=== PATIENT | male | born 1930 | race Caucasian/White ===

== ENCOUNTER 2017-08-20 15:03 | Observation (INO) ==
[2017-08-20] MEDS ORDERED: Aspirin 81 MG TAB.CHEW PO ONE (15:14)
--- NOTE | 2017-08-20 15:24 | Emergency Department Note ---
Disposition Clinical Impression: ACS (acute coronary syndrome) Disposition: Still a Patient [facility] Care Provider[facility] - General Adult HPI - General Chief complaint: ED Chest Pain Stated complaint: CP Time Seen by Provider: 08/20/17 15:11 Source: patient Limitations: no limitations - History of Present Illness Pain Scale: 0 - Related Data Allergies Allergy/AdvReac Type Severity Reaction Status Date / Time tape AdvReac skin Uncoded 01/11/15 09:44 breakdown Past Medical History - Past Medical History Medical history: Reports: CHF, diabetes, GERD, hyperlipidemia, hypertension, kidney stones, myocardial infarction Surgical history: Reports: cholecystectomy, coronary bypass (CABG), pacemaker/ AICD Psychiatric history: Reports: depression - Social History Smoking Status: Former smoker Smokeless Tobacco Status: No Alcohol use: Reports: none Drug use: Reports: none Physical Exam - General Limitations: no limitations General appearance: alert, in no apparent distress Course - Reevaluation(s) Reevaluation #1: Attestation note I examined this patient and my medical decision-making was reviewed with the emergency medicine resident. I agree with the documented findings, disposition and treatment plan as described except to the extent set forth below. Patient seen with PGY-[address] BOWDEN, Please see a copy of his note for details of the H&P, ED evaluation, management and disposition. I have independently evaluated the patient and confirmed appropriate portions of the history and physical exam. Briefly: 87-year-old male history of SD with one stent coronary artery disease hypercholesterolemia is at least 5 points on the heart score. Chest pain at rashes which causes diaphoresis and some shortness of breath but without radiation. Token 81 mg aspirin at home to give him 3 more 81 mg aspirins here. EKG shows paced rhythm no acute ischemic changes noted when compared to old EKG. Patient getting screening labs including troponin and portable chest x- ray with admission anticipated. Disposition pending Time: 15:23 Vital Signs Temperature 97.0 F L 08/20/17 15:14 Pulse Rate 60 08/20/17 15:14 Respiratory Rate 18 08/20/17 15:14 Blood Pressure 171/72 08/20/17 15:14 O2 Sat by Pulse Oximetry 98 08/20/17 15:14 Temperature 97.0 F L 08/20/17 15:14 Pulse Rate 60 08/20/17 15:14 Respiratory Rate 18 08/20/17 15:14 Blood Pressure 171/72 08/20/17 15:14 O2 Sat by Pulse Oximetry 98 08/20/17 15:14 Oxygen Delivery Oxygen Delivery Room Air
--- NOTE | 2017-08-20 16:02 | Emergency Department Note ---
Disposition Clinical Impression: ACS (acute coronary syndrome), Chest pain Disposition: Admitted As Inpatient Condition: Fair [facility]errals: [facility] [Primary Care Provider[facility] - Forms: ED Satisfaction Letter Time of Disposition: 17:15 Chest Pain HPI - General Chief Complaint: ED Chest Pain Stated Complaint: CP Time Seen by Provider: 08/20/17 15:11 Source: patient Limitations: no limitations - History of Present Illness Pt complaint: chest pain Onset (ago): minute(s) Duration: now resolved Onset: during rest Pain Location: substernal Severity: now resolved Severity scale (1-10): 0 Quality: tightness, dull, other (prior FL was asymptomatic, not ripping ) Pain Radiation: other (L shoulder, not to L arm. ) Improves with: other (Could not fiind nitroglycerin at home. Initially stated improves with leaning forward, on second time was unsure. Was not sure if worsening on movement or relief to rest when asked ) Worsens with: other (see above ) Associated symptoms: Reports: nausea, vomiting, diaphoresis Treatments prior to arrival chest pain: aspirin (81 early AM ) - Related Data Home Medications Medication Instructions Recorded Confirmed Amlodipine Besylate 10 mg PO DAILY 08/20/17 08/20/17 Aspirin [Lo-Dose Aspirin EC] 81 mg PO DAILY 08/20/17 08/20/17 Atenolol [Tenormin] 50 mg PO DAILY 08/20/17 08/20/17 Atorvastatin Calcium [Lipitor] 80 mg PO HS 08/20/17 08/20/17 Calcitriol [Rocaltrol] 0.25 mcg PO DAILY 08/20/17 08/20/17 Cetirizine HCl [All Day Allergy] 10 mg PO DAILY 08/20/17 08/20/17 Clopidogrel [Plavix] 75 mg PO DAILY 08/20/17 08/20/17 Febuxostat [Uloric] 40 mg PO DAILY 08/20/17 08/20/17 Furosemide [Lasix] 20 mg PO DAILY PRN 08/20/17 08/20/17 Gabapentin [Neurontin] 300 mg PO QAM 08/20/17 08/20/17 Gabapentin [Neurontin] 600 mg PO HS 08/20/17 08/20/17 Ipratropium [place] 1 spr NS BID 08/20/17 08/20/17 Levothyroxine [Synthroid] 50 mcg PO 0630 08/20/17 08/20/17 Mirabegron [Myrbetriq] 50 mg PO DAILY 08/20/17 08/20/17 Multivitamin [Multivitamins] 1 cap PO DAILY 08/20/17 08/20/17 [place]-3/Dha/Epa/Fish Oil [Fish Oil 1 cap PO DAILY 08/20/17 08/20/17 500 mg Softgel] Ranitidine HCl [Acid Power Operator] 150 mg PO BID 08/20/17 08/20/17 hydroCHLOROthiazide 25 mg PO DAILY 08/20/17 08/20/17 [Hydrochlorothiazide] Allergies Allergy/AdvReac Type Severity Reaction Status Date / Time tape AdvReac skin Uncoded 08/20/17 16:42 breakdown Eyes: Reports: other (blurry vision, now resolved ) ENT ED: Reports: hearing loss (chronic ) Cardiovascular: Reports: as per HPI Respiratory: Reports: as per HPI Gastrointestinal: Reports: as per HPI Neurological: Reports: headache Psychiatric: Denies: suicidal thoughts Chest Pain PMH - Past Medical History Medical history: Reports: CHF, diabetes, GERD, hyperlipidemia, hypertension, kidney stones, myocardial infarction Surgical history: Reports: cholecystectomy, coronary bypass (CABG), pacemaker/ AICD Psychiatric history: Reports: depression - Social History Smoking Status: Former smoker Alcohol use: Reports: none Drug use: Reports: none Physical Exam - General Limitations: no limitations General appearance: alert, in no apparent distress - Head Head exam: atraumatic, normocephalic - Eye Eye exam: Present: PERRL, EOMI. Absent: conjunctival injection - Chest Chest inspection: Present: symmetric chest wall rise. Absent: tenderness - Cardiovascular Cardiovascular exam: Present: normal rhythm, +S1, +S2. Absent: JVD - Abdominal Exam Abdominal exam: Present: soft, tenderness (mild). Absent: distention, guarding , rebound, rigidity - Neurological Exam Neurological exam: Present: alert, oriented X3 - Psychiatric Psychiatric exam: Present: normal affect Course - Reevaluation(s) Reevaluation #1: 16:07 - Blood samples drawn. Reevaluation #2: 16:15 - Status post aspirin. Pt re-assessed, denies chest pain. No requests at the time by patient. Conveyed with family CXR results and remainder plan. Pt amenable to plan. Awaiting lab results. Interval - Pt's family states patient complaining of SOB. Will place patient on NC 2L and continue continuous pulse oximetry. Reevaluation #3: 17:15 . Pt's SOB improved with 2L NC. Denies chest pain at time. Discussed recommendation for admission to family. Patient and family amenable to plan. Additional Reevaluation(s): Approx. 18:00 Family pulled resident MD aside, confided of history of blood in stool. Family unsure of last colonoscopy. Vocera sent at 18:[address] Barrera to convey notification. - Consultations Consultation #1: 17:15 Discussed clinical presentation, exam, imaging, and labs with patient for ACS r/o. Accepted by Hospitalist Bruce. Vital Signs Temperature 97.0 F L 08/20/17 15:14 Pulse Rate 60 08/20/17 15:14 Respiratory Rate 18 08/20/17 15:14 Blood Pressure 171/72 08/20/17 15:14 O2 Sat by Pulse Oximetry 98 08/20/17 15:14 Temperature 97.0 F L 08/20/17 15:14 Pulse Rate 60 08/20/17 17:54 Respiratory Rate 18 08/20/17 17:54 Blood Pressure 157/67 08/20/17 17:54 O2 Sat by Pulse Oximetry 100 08/20/17 17:54 Oxygen Delivery Oxygen Delivery Room Air Chest Pain - MDM Narrative Medical decision making narrative: 87-year-old male with hypertension, coronary artery disease status post CABG, hyperlipidemia presenting with chest pain, substernal, acute in onset, with diaphoresis. Chest pain resolved on arrival in ED. Pt unsure whether worsened on exertion or relieved or rest, and whether or not positional. Due to cardiac history, immediate concern for acute coronary syndrome. Immediate diagnostic studies, including EKG, cardiac biomarkers. Aspirin equivalent 324 mg ONCE. Initial cardiac biomarkers troponin less than 0.03. Suspicion for ACS remains based on history, and patient deemed reasonable candidate for ACS rule out. Hospitalist accepted admission for possible ACS and consideration of stress test. - Medical Records Medical records reviewed: Yes I reviewed the patient's medical records. - Lab Data Lab results reviewed: Yes I reviewed the patient's lab results. Result diagrams: 08/20/17 15:50 08/20/17 15:50 Lab Results 08/20/17 08/20/17 08/20/17 Range/Units 15:50 15:50 15:50 WBC 7.3 (4.3-11.1) K/mcL RBC 3.47 L (4.19-5.50) M/mcL Hgb 10.9 L (12.9-16.9) g/dL Hct 32.7 L (37.5-50.1) % MCV 94.2 (83.0-100.0) fL MCH 31.4 (28.0-33.3) pg MCHC 33.3 (31.6-35.5) g/dL RDW 12.4 (11.5-14.5) % Plt Count 195 (140-400) K/mcL MPV 10.3 (9.4-12.4) fL Immature Gran % 0.3 (0-4) % Seg Neutrophils % 71.4 % Lymphocytes % 18.6 % Monocytes % 8.3 % Eosinophils % 1.0 % Basophils % 0.4 % Neutrophils # 5.2 (1.6-8.9) K/mcL Lymphocytes # 1.4 (0.6-4.6) K/mcL Monocytes # 0.6 (0.0-1.3) K/mcL Eosinophils # 0.1 (0.0-0.6) K/mcL Basophils # 0.0 (0.0-0.2) K/mcL PT 10.6 (9.4-12.1) Seconds INR 1.0 Sodium 145 (136-145) mEq/L Potassium 4.2 (3.5-5.1) mEq/L Chloride 108 H (98-107) mEq/L Carbon Dioxide 29 (23-29) mEq/L BUN 62 H (8-23) mg/dL Creatinine 2.70 H (0.70-1.30) mg/dL Est GFR ( Amer) 27 L (> 60) Est GFR (Non-Af Amer) 23 L (> 60) BUN/Creatinine Ratio 23 (6-26) Glucose 141 H (70-105) mg/dL Calculated Osmolality 320 H (280-300) Calcium 9.2 (8.6-10.3) mg/dL Troponin I < 0.03 (< 0.04) ng/mL - Radiology Data Radiology results reviewed: Yes I reviewed the patient's radiology results. Impressions Chest X-Ray 08/20/17 15:14 IMPRESSION: No acute cardiopulmonary disease D/ / Walter Jaime MD / Walter Jaime MD Interpreting Provider: Walter Jaime MD - EKG Data EKG attestation: Yes I reviewed and interpreted this EKG. EKG results narrative: 15:05:46. Ventricular rate 60. OH interval 225. QRS duration 172. QT/QTC 492 /492. Atrial and ventricular pacemaker. EKG reviewed with attending Brian Regan Heart Score - Score History: Moderately Suspicious EKG: Non Specific repolarisation Disturbance Age: Greater than 65 Risk Factors: Equal/Greater than 3 risk factor or history of atherosclerotic disease Troponin: Less than normal limit (12-16.6% risk of adverse cardiac event. In the HEART Score study, these patients were admitted to the hospital. (11.6% retrospective, 16.6% prospective)) HEART Score Total: 6
[2017-08-20 16:03] LABS: Basophils % 0.4 %; Eosinophils # 0.1 K/mcL (0.0-0.6); Hematocrit 32.7 % (37.5-50.1); Hemoglobin 10.9 g/dL (12.9-16.9); Immature Granulocytes % 0.3 % (0-4); Lymphocytes # 1.4 K/mcL (0.6-4.6); Lymphocytes % 18.6 %; Mean Corpuscular HGB Conc 33.3 g/dL (31.6-35.5); Mean Corpuscular Hemoglobin 31.4 pg (28.0-33.3); Mean Corpuscular Volume 94.2 fL (83.0-100.0); Mean Platelet Volume 10.3 fL (9.4-12.4); Monocytes # 0.6 K/mcL (0.0-1.3); Monocytes % 8.3 %; Neutrophils # 5.2 K/mcL (1.6-8.9); Platelet Count 195 K/mcL (140-400); Red Blood Count 3.47 M/mcL (4.19-5.50); Red Cell Distribution Width 12.4 % (11.5-14.5); Segmented Neutrophils % 71.4 %
[2017-08-20 16:08] LABS: Prothrombin Time 10.6 Seconds (9.4-12.1)
[2017-08-20 16:25] LABS: BUN/Creatinine Ratio 23 (6-26); Blood Urea Nitrogen 62 mg/dL (8-23); Calcium 9.2 mg/dL (8.6-10.3); Carbon Dioxide 29 mEq/L (23-29); Chloride 108 mEq/L (98-107); Glucose 141 mg/dL (70-105); Osmolality,Calculated 320 (280-300); Potassium 4.2 mEq/L (3.5-5.1); Sodium 145 mEq/L (136-145); eGFR For African Americans 27 (> 60); eGFR For Non-African Americans 23 (> 60)
[2017-08-20 16:26] LABS: Troponin I < 0.03 ng/mL (< 0.04)
[2017-08-20] MEDS ORDERED: Naloxone 0.4 MG/ML INJ IVP PRN (21:53)
--- NOTE | 2017-08-20 21:53 | Internal Med History&Physical ---
Date of Encounter: 08/20/17 Time of Encounter: 22:24 Internal Medicine - H&P: HPI Admitted From: Home Plans for Post Hospital Care: Home History of present illness: Mr. Avendaño is a 87 year old male with hypertension, coronary artery disease status post CABG, CK disease stage III is stable and following her estate planning attorney. Baseline creatinine 2.13, hyperlipidemia presenting to ER with complaint of substernal chest pain 6 x 10, epigastric pain acute in onset with diaphoresis restarted in the morning after taking the breakfast. He took a rest but pain did not go away therefore he got concerned and decided to come to emergency room. By the time he is to emergency room his pain already relieved though in emergency room aspirin was given. Initial cardiac biomarkers are negative with no acute finding in EKG. Considering multiple risk factors ER physician called on-call hospitalists for the evaluation of chest pain. A stress tests negative done last year Patient is hard of hearing therefore mostly in formation even by her daughter who is bedside. As per daughter she has noticed blood in the bowel few days of her but patient denies it. Patient complained of epigastric pain that is started today with lot of gas and burping. Patient denies fever, chills, vomiting, shortness of breath, urinary or bowel complaint but has nausea. Past Med Surg Social Fam HX - Past Medical History Medical history: CHF, diabetes, GERD, hyperlipidemia, hypertension, kidney stones, myocardial infarction Psychiatric history: depression - Past Surgical History Surgical History: cholecystectomy, coronary bypass (CABG), pacemaker/AICD - Social History Smoking Status: Former smoker Smokeless Tobacco Status: No Alcohol use: none Drug use: none - Family History Mother Name: dillan Living Status: Age at : 79 Cause of : cardiac dx Hx Family Cardiac Disorders: Yes Father Name: gareth Living Status: Cause of : cardiack dx Hx Family Cardiac Disorders: Yes Sister Name: wilber Living Status: Hx Family Cardiac Disorders: Yes (cardiac dx) Internal Medicine - H&P: Meds Amlodipine Besylate 10 mg PO DAILY 08/20/17 [History] Aspirin [Lo-Dose Aspirin EC] 81 mg PO DAILY 08/20/17 [History] Atenolol [Tenormin] 50 mg PO DAILY 08/20/17 [History] Atorvastatin Calcium [Lipitor] 80 mg PO HS 08/20/17 [History] Calcitriol [Rocaltrol] 0.25 mcg PO DAILY 08/20/17 [History] Cetirizine HCl [All Day Allergy] 10 mg PO DAILY 08/20/17 [History] Clopidogrel [Plavix] 75 mg PO DAILY 08/20/17 [History] Febuxostat [Uloric] 40 mg PO DAILY 08/20/17 [History] Furosemide [Lasix] 20 mg PO DAILY PRN 08/20/17 [History] Gabapentin [Neurontin] 300 mg PO QAM 08/20/17 [History] Gabapentin [Neurontin] 600 mg PO HS 08/20/17 [History] Ipratropium [place] 1 spr NS BID 08/20/17 [History] Levothyroxine [Synthroid] 50 mcg PO 0630 08/20/17 [History] Mirabegron [Myrbetriq] 50 mg PO DAILY 08/20/17 [History] Multivitamin [Multivitamins] 1 cap PO DAILY 08/20/17 [History] [place]-3/Dha/Epa/Fish Oil [Fish Oil 500 mg Softgel] 1 cap PO DAILY 08/20/17 [ History] Ranitidine HCl [Acid Fresh Food Manager] 150 mg PO BID 08/20/17 [History] hydroCHLOROthiazide [Hydrochlorothiazide] 25 mg PO DAILY 08/20/17 [History] 3 Allergy/AdvReac Type Severity Reaction Status Date / Time tape AdvReac skin Uncoded 08/20/17 16:42 breakdown All Systems PM: A 10-system review of systems was performed and is negative for pertinent findings except as documented above in the HPI. - Constitutional Vitals: Temp Pulse Resp BP Pulse Ox 97.5 F L 60 14 177/64 98 08/20/17 20:12 08/20/17 20:12 08/20/17 20:12 08/20/17 20:12 08/20/17 20:12 Exam: General appearance: No acute distress, A&O X 3. Hard of hearing. Daughter at bedside Head exam: Atraumatic Eye exam: EOMI, PERRLA ENT exam: Moist oral mucosa Neck nontender, supple Respiratory exam: Clear to auscultation bilaterally Cardiovascular exam: Regular rate and rhythm, no systolic murmur Abdominal exam: Soft, epigastric tenderness, nondistended, positive bowel sounds Extremities exam: No calf tenderness, no pedal edema Present: Skin-no rash, warm, dry, intact Neurological exam: Alert, awake, oriented 3, CN II-XII intact, no focal deficits. No facial droop. Normal speech. Normal gait. Internal Med - H&P Results - Labs CBC & Chem 7: 08/20/17 15:50 08/20/17 15:50 - Assessment and plan (1) Chest pain Current Visit: Yes Status: Acute Assessment and plan: Atypical chest pain though patient has multiple cardiac risk factor. Also stress tests negative in 2017. Will keep patient in telemetry with serial cardiac monitoring. Will also continue baby aspirin but he stopped Plavix due to concern of GI bleed but it is not active at this time, continue other home cardiac medicine. Will do ischemic cardiac workup and consult broadcast field supervisor if needed. Qualifiers: Qualified Code(s): R07.9 - Chest pain, unspecified (2) Acute epigastric pain Current Visit: Yes Status: Acute Assessment and plan: Started today. Concern of GI bleed as family witness but patient denies. Hemoccult ordered. Patient also has mild anemia. Will keep patient nothing by mouth, gentle hydration as patient had history of CkD as well. PPI IV twice a day, held Plavix but will continue baby aspirin as no active bleeding at this time but will hold if any visible active bleeding or drop in hemoglobin. Will also consult GI specialist if needed. Serial hemoglobin monitoring. Will consider blood transfusion if needed. Discuss with family. (3) MINOR (acute kidney injury) Current Visit: Yes Status: Acute Assessment and plan: Gentle hydration, strict I&O's, avoid nephrotoxic drug. Had Lasix and hydrochlorothiazide. Monitor BMP. (4) Diabetes mellitus Current Visit: Yes Status: Chronic Assessment and plan: Accu-Chek, sliding scale insulin. Qualifiers: Diabetes mellitus type: type 2 Diabetes mellitus terminal computer operator insulin use: without terminal computer operator use Qualified Code(s): E11.9 - Type 2 diabetes mellitus without complications (5) Hypertension Current Visit: Yes Status: Acute Assessment and plan: Monitor closely. Will hold Lasix and hydrochlorothiazide due to acute kidney injury. Hydralazine as needed Qualifiers: Qualified Code(s): I10 - Essential (primary) hypertension - Time Spent With Patient Total time spent is greater than 50% in coordination of care (as documented) at patient's floor/unit and/or counseling patient: Greater than 35 minutes
[2017-08-20] MEDS ORDERED: Dextrose Gel 15 GM/37.5 ML TUBE PO PRN ×2 (22:21)
[2017-08-20] MEDS ORDERED: *HR* Dextrose 50 % in Water (Syg) 50 ML SYRINGE IVP PRN (22:21)
[2017-08-20] MEDS ORDERED: D5% in Water 1,000 ML IVC PRN (22:21)
[2017-08-20 22:35] LABS: Hematocrit 37.1 % (37.5-50.1); Hemoglobin 12.4 g/dL (12.9-16.9)
[2017-08-20] MEDS: 0.9 % Sodium Chloride 1,000 ML IVC SCH (23:40)
[2017-08-20] MEDS: Insulin LISPRO 300 UNITS/3 ML VIAL SQ SCH (23:54)
[2017-08-21] MEDS ORDERED: Acetaminophen 325 MG TABLET PO PRN (02:00)
[2017-08-21] MEDS: Pantoprazole 40 MG VIAL IVP SCH ×2 (06:22→17:25)
[2017-08-21] MEDS: Insulin LISPRO 300 UNITS/3 ML VIAL SQ SCH ×3 (06:24→17:22)
[2017-08-21] MEDS ORDERED: Famotidine 20 MG TABLET PO SCH (07:30)
[2017-08-21] MEDS: Multivit/Ca/Min/Fe/FA 1 TAB TABLET PO SCH (08:17)
[2017-08-21] MEDS: Aspirin Enteric Coated 81 MG Tablet PO SCH (08:17)
[2017-08-21] MEDS: Gabapentin 300 MG CAPSULE PO SCH (08:17)
[2017-08-21] MEDS: amLODIPine 5 MG TABLET PO SCH (08:17)
[2017-08-21] MEDS: IPRATROPIUM BROMIDE NS SCH ×2 (08:18→21:51)
[2017-08-21] MEDS: Febuxostat [Uloric] 40 MG PO SCH (08:18)
[2017-08-21] MEDS: Mirabegron [Myrbetriq] 50 MG PO SCH (08:18)
--- NOTE | 2017-08-21 16:23 | Internal Med Progress Note ---
Date of Encounter: 08/21/17 Time of Encounter: 16:21 - Assessment and plan (1) Chest pain Current Visit: Yes Status: Acute Assessment and plan: Improved. Etiology uncertain. Troponins are negative. Awaiting 2-D echocardiogram. Negative stress test within the past year. Would recommend outpatient follow-up with cardiology if echocardiogram does not show any significant changes from prior echo. Qualifiers: Chest pain type: precordial pain Qualified Code(s): R07.2 - Precordial pain (2) Acute epigastric pain Current Visit: Yes Status: Acute Assessment and plan: Could be related to gastritis or GERD. Stool for occult blood negative. Continue PPI. (3) MINOR (acute kidney injury) Current Visit: Yes Status: Acute Assessment and plan: On chronic kidney disease stage III. Patient this patient and creatinine is between 2.3 and 2.5. We will avoid nephrotoxic agents. Follow renal function. (4) Diabetes mellitus Current Visit: Yes Status: Chronic Assessment and plan: Blood sugars are fairly controlled. Will change insulin regimen to ACHS. Qualifiers: Diabetes mellitus type: type 2 Diabetes mellitus nursing home insulin use: without nursing home use Diabetes mellitus complication status: with kidney complications Diabetes mellitus complication detail: with chronic kidney disease Chronic kidney disease stage: stage 3 (moderate) Qualified Code(s): E11.22 - Type 2 diabetes mellitus with diabetic chronic kidney disease; N18.3 - Chronic kidney disease, stage 3 (moderate); N18.3 - Chronic kidney disease, stage 3 (moderate) (5) Hypertension Current Visit: Yes Status: Chronic Assessment and plan: Blood pressure elevated this afternoon but has been well controlled earlier. Continue atenolol and amlodipine. We will monitor blood pressure and adjust medications accordingly Qualifiers: Hypertension type: essential hypertension Qualified Code(s): I10 - Essential (primary) hypertension - Time Spent With Patient Total time spent is greater than 50% in coordination of care (as documented) at patient's floor/unit and/or counseling patient: - Subjective Interval history: Patient is doing better today. Does report some shortness of breath. Denies any palpitations. Chest pain has resolved. No pedal edema. No abdominal pain nausea or vomiting. He does have occasional epigastric pain. - Constitutional Vitals: Temp Pulse Resp BP Pulse Ox 97.9 F 59 16 155/64 94 08/21/17 15:53 08/21/17 15:53 08/21/17 15:53 08/21/17 15:53 08/21/17 15:53 General appearance: Present: cooperative, mild distress, A&O X 3, pleasant, answers questions appropriately - Neck Neck exam general surgery: Present: supple, trachea midline. Absent: lymphadenopathy - Respiratory Respiratory exam: Present: CTAB. Absent: accessory muscle use, rales, rhonchi, wheezes - Cardiovascular Cardiovascular exam: Present: RRR, +S1, +S2. Absent: diastolic murmur, gallop, rubs, systolic murmur - GI/Abdominal GI/Abdominal exam: Present: normal bowel sounds, soft, no peritoneal signs. Absent: distended, tenderness - Extremities Exam Extremities exam: Present: warm, radial pulses palpable and symmetrical. Absent : calf tenderness, cyanotic, pedal edema - Neurological Exam Neurological exam: Present: CN II-XII intact, oriented X3, no focal deficits. Absent: facial droop, speech deficit Internal Medicine: Result - Labs CBC & Chem 7: 08/20/17 22:24 08/20/17 15:50 Labs: Short CBC 08/20/17 Range/Units 22:24 Hgb 12.4 L D (12.9-16.9) g/dL Hct 37.1 L (37.5-50.1) % Cardiac Enzymes 08/21/17 Range/Units 08:01 Troponin I < 0.03 (< 0.04) ng/mL - ABG Interpretation ABG results: PT/INR, D-dimer PT 10.6 Seconds (9.4-12.1) 08/20/17 15:50 - VTE Documentation of Mechanical Device: Intermittent pneumatic compression device Consult Discharge Plan - Plan [facility]errals: [facility] [Primary Care Provider] -
[2017-08-21] MEDS: Famotidine 20 MG TABLET PO SCH (17:25)
[2017-08-21] MEDS: 0.9 % Sodium Chloride 1,000 ML IVC SCH (19:53)
[2017-08-21] MEDS ORDERED: Insulin LISPRO 300 UNITS/3 ML VIAL SQ SCH (21:00)
[2017-08-22] MEDS: Pantoprazole 40 MG VIAL IVP SCH (05:30)
[2017-08-22 05:51] LABS: Basophils % 0.3 %; Eosinophils # 0.1 K/mcL (0.0-0.6); Eosinophils % 1.7 %; Hematocrit 28.7 % (37.5-50.1); Immature Granulocytes % 0.2 % (0-4); Lymphocytes # 1.3 K/mcL (0.6-4.6); Lymphocytes % 22.1 %; Mean Corpuscular HGB Conc 33.1 g/dL (31.6-35.5); Mean Corpuscular Volume 93.8 fL (83.0-100.0); Mean Platelet Volume 10.6 fL (9.4-12.4); Monocytes # 0.4 K/mcL (0.0-1.3); Monocytes % 7.1 %; Neutrophils # 3.9 K/mcL (1.6-8.9); Platelet Count 151 K/mcL (140-400); Red Blood Count 3.06 M/mcL (4.19-5.50); Red Cell Distribution Width 12.7 % (11.5-14.5); Segmented Neutrophils % 68.6 %
[2017-08-22 05:52] LABS: Hemoglobin 9.5 g/dL (12.9-16.9)
[2017-08-22 06:08] LABS: Potassium 3.8 mEq/L (3.5-5.1)
[2017-08-22 06:23] VITALS: BP 123/68
[2017-08-22] MEDS: Insulin LISPRO 300 UNITS/3 ML VIAL SQ SCH (07:42)
[2017-08-22] MEDS: Famotidine 20 MG TABLET PO SCH (08:31)
[2017-08-22] MEDS: Aspirin Enteric Coated 81 MG Tablet PO SCH (08:32)
[2017-08-22] MEDS: amLODIPine 5 MG TABLET PO SCH (08:32)
[2017-08-22] MEDS: Mirabegron [Myrbetriq] 50 MG PO SCH (08:32)
[2017-08-22] MEDS: Febuxostat [Uloric] 40 MG PO SCH (08:32)
[2017-08-22] MEDS: Multivit/Ca/Min/Fe/FA 1 TAB TABLET PO SCH (08:32)
[2017-08-22] MEDS: IPRATROPIUM BROMIDE NS SCH (08:32)
[2017-08-22] MEDS: Gabapentin 300 MG CAPSULE PO SCH (08:32)
--- NOTE | 2017-08-22 08:44 | Discharge Summary ---
- NOTES TO OUTPATIENT PROVIDER Notes to Outpatient Provider: Patient hospitalized with chest pain. Negative troponins. Echocardiogram shows no changes compared to last echo done in the past year. [place] stress test within the past year. No further workup indicated at this time. Chest pain resolved. Patient also has epigastric pain and would need outpatient GI follow-up for upper GI endoscopy and colonoscopy. Being treated with PPI for now with resolution of symptoms. Date of Encounter: 08/22/17 Time of Encounter: 08:41 - Discharge Diagnosis (1) Chest pain Priority: Primary Status: Acute Qualifiers: Chest pain type: precordial pain Qualified Code(s): R07.2 - Precordial pain (2) Acute epigastric pain Priority: Secondary Status: Acute (3) MINOR (acute kidney injury) Priority: Secondary Status: Resolved (4) Diabetes mellitus Priority: Secondary Status: Chronic Qualifiers: Diabetes mellitus type: type 2 Diabetes mellitus halfway insulin use: without terminal computer operator use Diabetes mellitus complication status: with kidney complications Diabetes mellitus complication detail: with chronic kidney disease Chronic kidney disease stage: stage 3 (moderate) Qualified Code(s): E11.22 - Type 2 diabetes mellitus with diabetic chronic kidney disease; N18.3 - Chronic kidney disease, stage 3 (moderate); N18.3 - Chronic kidney disease, stage 3 (moderate) (5) Hypertension Priority: Secondary Status: Chronic Qualifiers: Hypertension type: essential hypertension Qualified Code(s): I10 - Essential (primary) hypertension (6) Anemia Priority: Secondary Status: Chronic Qualifiers: Anemia type: unspecified type Qualified Code(s): D64.9 - Anemia, unspecified Hospital course: Mr. Avendaño is a 87 year old male patient with history of hypertension and hyperlipidemia, diabetes, chronic kidney disease stage III, coronary artery disease and myocardial infarction status post CABG, pacemaker and AICD placement presented to the hospital with complaints of chest pain. He was evaluated in the ER and an EKG did not show any acute ST segment changes. He was evaluated in the hospital with telemetry and had his troponins checked. They have been negative. Chest pain has now resolved. 2-D echocardiogram was done and it did not show any significant changes compared to echocardiogram done one year back. Patient has already had a stress test within the past year. As his chest pain has now resolved, no further workup is recommended at this time. He will follow up with his pewter caster after discharge. I will also place him on Imdur to help with his symptoms. Patient also had epigastric pain and may have underlying gastritis and he has been placed on Protonix with improvement in his symptoms. He does require follow-up with GI as he also has chronic anemia and has not had colonoscopy in the past. I will put in a referral for GI. Stool was negative for occult blood here. However the patient and family report that he is had occasional episodes of blood in his stools at home. His hemoglobin is 9.5 today. Likely dilutional. He will follow up with GI for further management. He will also continue to take Protonix as outpatient. Discharge discussed with: patient, family, nurse - Time Spent with Patient Total time spent providing and/or coordinating discharge services: Less than 30 minutes (25 min) - Discharge Medications Prescriptions: Nitroglycerin [Nitrostat] 0.4 mg SL Q5MIN PRN #30 tab.subl PRN Reason: Chest Pain Isosorbide MONOnitrate (24 HR) [Imdur] 30 mg PO DAILY #30 tab.er.24h Pantoprazole Sodium 40 mg PO DAILY #30 tablet.dr Faj[place] Medications: Amlodipine Besylate 10 mg PO DAILY 08/20/17 [History] Aspirin [Lo-Dose Aspirin EC] 81 mg PO DAILY 08/20/17 [History] Atenolol [Tenormin] 50 mg PO DAILY 08/20/17 [History] Atorvastatin Calcium [Lipitor] 80 mg PO HS 08/20/17 [History] Calcitriol [Rocaltrol] 0.25 mcg PO DAILY 08/20/17 [History] Cetirizine HCl [All Day Allergy] 10 mg PO DAILY 08/20/17 [History] Clopidogrel [Plavix] 75 mg PO DAILY 08/20/17 [History] Febuxostat [Uloric] 40 mg PO DAILY 08/20/17 [History] Furosemide [Lasix] 20 mg PO DAILY PRN 08/20/17 [History] Gabapentin [Neurontin] 300 mg PO QAM 08/20/17 [History] Gabapentin [Neurontin] 600 mg PO HS 08/20/17 [History] Ipratropium [place] 1 spr NS BID 08/20/17 [History] Levothyroxine [Synthroid] 50 mcg PO 0630 08/20/17 [History] Mirabegron [Myrbetriq] 50 mg PO DAILY 08/20/17 [History] Multivitamin [Multivitamins] 1 cap PO DAILY 08/20/17 [History] [place]-3/Dha/Epa/Fish Oil [Fish Oil 500 mg Softgel] 1 cap PO DAILY 08/20/17 [ History] hydroCHLOROthiazide [Hydrochlorothiazide] 25 mg PO DAILY 08/20/17 [History] Isosorbide MONOnitrate (24 HR) [Imdur] 30 mg PO DAILY #30 tab.er.24h 08/22/17 [ Rx] Nitroglycerin [Nitrostat] 0.4 mg SL Q5MIN PRN #30 tab.subl 08/22/17 [Rx] Pantoprazole Sodium 40 mg PO DAILY #30 tablet.dr 08/22/17 [Rx] Allergies/Adverse Reactions: 3 Allergy/AdvReac Type Severity Reaction Status Date / Time tape AdvReac skin Uncoded 08/20/17 16:42 breakdown Date of admission: 08/20/17 19:13 [facility] care [facility] Discharging clinician: Marlene Ferrer Anticipated date of discharge: 08/22/17 - Constitutional Vitals: Temp Pulse Resp BP Pulse Ox 98.5 F 68 16 123/68 95 08/22/17 06:22 08/22/17 06:22 08/22/17 06:22 08/22/17 06:22 08/22/17 06:22 General appearance: Present: cooperative, A&O X 3, pleasant, no acute distress, answers questions appropriately - Neck Neck exam general surgery: Present: supple, trachea midline. Absent: lymphadenopathy - Respiratory Respiratory exam: Present: CTAB. Absent: accessory muscle use, rales, rhonchi, wheezes - Cardiovascular Cardiovascular exam: Present: RRR, +S1, +S2. Absent: diastolic murmur, gallop, rubs, systolic murmur - GI/Abdominal GI/Abdominal exam: Present: normal bowel sounds, soft, no peritoneal signs. Absent: distended, tenderness - Extremities Exam Extremities exam: Present: warm, radial pulses palpable and symmetrical. Absent : calf tenderness, cyanotic, pedal edema - Neurological Exam Neurological exam: Present: CN II-XII intact, oriented X3, no focal deficits. Absent: facial droop, speech deficit - Skin Skin exam: Present: dry, intact - Patient Status Disposition: Home, Self-Care Condition: Good Functional capacity at discharge: uses cane/walker Overall status at discharge: patient is progressing back to baseline - Discharge Instructions Instructions: Chest Pain (DC), Anemia (GEN) [facility] With: [facility] [Primary Care Provider] - (In 1-2 weeks) Kobi Mcnamara MD [Partnered Physician] - (In 1-2 weeks for outpatient colonoscopy and EGD ) Colt Boykin MD [Partnered Physician] - (In 1-2 weeks.) - Diet and Activity Activity: increase activity as tolerated Diet: diabetic diet, low fat, low cholesterol, low salt diet - VTE Documentation of Mechanical Device: Intermittent pneumatic compression device
--- NOTE | 2017-08-24 05:15 | Electrocardiograph Report ---
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
== END 2017-08-22 10:06 | disposition home or self-care (01) ==
LOC: EMEROO 15:03 → SUATTDRO 19:13 → 3NENU 19:13 → INTOOBSV 19:13 → 3NENU 19:58
PROVIDERS: ADMIT Family Medicine; ATTEND Internal Medicine

== ENCOUNTER 2017-09-28 12:04 | Observation (INO) ==
[2017-09-28 13:46] LABS: Basophils % 0.5 %; Eosinophils # 0.2 K/mcL (0.0-0.6); Hematocrit 33.9 % (37.5-50.1); Hemoglobin 11.4 g/dL (12.9-16.9); Immature Granulocytes % 0.3 % (0-4); Lymphocytes # 1.8 K/mcL (0.6-4.6); Lymphocytes % 23.5 %; Mean Corpuscular HGB Conc 33.6 g/dL (31.6-35.5); Mean Corpuscular Volume 95.2 fL (83.0-100.0); Mean Platelet Volume 10.6 fL (9.4-12.4); Monocytes # 0.5 K/mcL (0.0-1.3); Monocytes % 6.4 %; Platelet Count 184 K/mcL (140-400); Red Blood Count 3.56 M/mcL (4.19-5.50); Red Cell Distribution Width 12.8 % (11.5-14.5); Segmented Neutrophils % 67.3 %
[2017-09-28 14:08] LABS: Albumin 3.7 g/dL (3.5-5.7); Albumin/Globulin Ratio 1.2 (1.1-2.2); Bilirubin,Direct 0.1 mg/dL (0.0-0.2); Bilirubin,Indirect 0.3 mg/dL (0.0-1.2); Bilirubin,Total 0.4 mg/dL (0.3-1.0); Calcium 9.1 mg/dL (8.6-10.3); Globulin 3.1 g/dL (2.4-3.5); Potassium 4.1 mEq/L (3.5-5.1); Total Protein 6.8 g/dL (6.4-8.9)
[2017-09-28] MEDS ORDERED: 0.9 % Sodium Chloride 1,000 ML IVC ONE (15:44)
[2017-09-28] MEDS ORDERED: Ondansetron 4 MG/2 ML VIAL IVP ONE (15:44)
--- NOTE | 2017-09-28 15:44 | Emergency Department Note ---
Disposition Clinical Impression: ARF (acute renal failure), Elevated lipase Disposition: Admitted As Inpatient Condition: Fair Referrals: Avel Linares MD [Primary Care Provider] - Forms: ED Satisfaction Letter Time of Disposition: 15:30 General Adult HPI - General Chief complaint: ED Recheck/Abnormal Lab/Rx Stated complaint: Abnormal Labs Time Seen by Provider: 09/28/17 14:39 Source: patient Mode of arrival: ambulatory Limitations: no limitations Nursing Notes Reviewed: Yes Vital Signs Reviewed: Yes - History of Present Illness HPI Narrative: 87-year-old male presents emergency Department with concerns of persistent nausea and vomiting and abdominal pain. Patient was seen in the emergency department within the past week for the same situation. He was seen by his primary care provider today who noticed that he had acute worsening of his renal function. He is sent to the emergency department for further evaluation. Patient has an elevation of his lipase at 88 which was obtained during testing from the waiting room. Patient is unknown what the patient's baseline lipase is. Pain Scale: 0 - Related Data Home Medications Medication Instructions Recorded Confirmed Amlodipine Besylate 10 mg PO DAILY 08/20/17 09/28/17 Aspirin [Lo-Dose Aspirin EC] 81 mg PO DAILY 08/20/17 09/28/17 Atenolol [Tenormin] 50 mg PO DAILY 08/20/17 09/28/17 Atorvastatin Calcium [Lipitor] 80 mg PO HS 08/20/17 09/28/17 Calcitriol [Rocaltrol] 0.25 mcg PO DAILY 08/20/17 09/28/17 Cetirizine HCl [All Day Allergy] 10 mg PO DAILY 08/20/17 09/28/17 Clopidogrel [Plavix] 75 mg PO DAILY 08/20/17 09/28/17 Febuxostat [Uloric] 40 mg PO DAILY 08/20/17 09/28/17 Furosemide [Lasix] 20 mg PO DAILY PRN 08/20/17 09/28/17 Gabapentin [Neurontin] 300 mg PO QAM 08/20/17 09/28/17 Gabapentin [Neurontin] 600 mg PO HS 08/20/17 09/28/17 Ipratropium [place] 1 spr NS BID 08/20/17 09/28/17 Levothyroxine [Synthroid] 50 mcg PO 0630 08/20/17 09/28/17 Mirabegron [Myrbetriq] 50 mg PO DAILY 08/20/17 09/28/17 Multivitamin [Multivitamins] 1 cap PO DAILY 08/20/17 09/28/17 [place]-3/Dha/Epa/Fish Oil [Fish Oil 1 cap PO DAILY 08/20/17 09/28/17 500 mg Softgel] hydroCHLOROthiazide 25 mg PO DAILY 08/20/17 09/28/17 [Hydrochlorothiazide] Previous Rx's Medication Instructions Recorded Isosorbide MONOnitrate (24 HR) 30 mg PO DAILY #30 tab.er.24h 08/22/17 [Imdur] Nitroglycerin [Nitrostat] 0.4 mg SL Q5MIN PRN #30 tab.subl 08/22/17 Pantoprazole Sodium 40 mg PO DAILY #30 tablet.dr 08/22/17 Ondansetron ODT [Zofran ODT] 4 mg SL Q4HR PRN #14 tab.rapdis 09/25/17 Allergies Allergy/AdvReac Type Severity Reaction Status Date / Time tape AdvReac skin Uncoded 09/28/17 12:08 breakdown All systems ED: reviewed and negative except as stated. Review of Systems: As Per HPI Past Medical History - Past Medical History Attestation: Yes The following information was validated with the patient. Source: patient Medical history: Reports: CHF, diabetes, GERD, hyperlipidemia, hypertension, kidney stones, myocardial infarction Surgical history: Reports: cholecystectomy, coronary bypass (CABG), pacemaker/ AICD Psychiatric history: Reports: depression - Social History Smoking Status: Former smoker Smokeless Tobacco Status: No Alcohol use: Reports: none Drug use: Reports: none Physical Exam General: Alert and in no acute distress Skin: Warm, dry, intact Head: Normocephalic and atraumatic Neck: Supple, trachea midline and no tenderness Cardiovascular: RRR, no murmur, normal perfusion Respiratory: CTAB, no wheezing, cough, or respiratory distress Musculoskeletal: Normal strength, no tenderness, swelling or deformity GI: Soft, nontender, nondistended. Bowel sounds present Neuro: A&O to person, place, time and situation. No focal deficits noted on exam Psychiatric: cooperative and appropriate mood and affect. - General General appearance: alert, in no apparent distress Course Vital Signs Temperature 98.2 F 09/28/17 12:06 Pulse Rate 61 09/28/17 12:06 Respiratory Rate 18 09/28/17 12:06 Blood Pressure 137/64 09/28/17 12:06 O2 Sat by Pulse Oximetry 97 09/28/17 12:06 Temperature 98.2 F 09/28/17 14:44 Pulse Rate 60 09/28/17 16:07 Respiratory Rate 18 09/28/17 14:44 Blood Pressure 152/63 09/28/17 16:07 O2 Sat by Pulse Oximetry 96 09/28/17 16:07 Oxygen Delivery Oxygen Delivery Room Air Medical Decision Making - MDM Narrative Medical decision making narrative: Patient has elevation of his lipase with possible pancreatitis causing his persistent nausea and vomiting. Patient had a CT which did not show significant abnormality within the past few days. Abdomen is soft to palpation and likely does not have acute surgical pathology at this time. Patient will be given IV fluids and he will be admitted to the hospitalist for further care and evaluation. - Medical Records Medical records reviewed: Yes I reviewed the patient's medical records. - Lab Data Lab results reviewed: Yes I reviewed the patient's lab results. Result diagrams: 09/28/17 13:31 09/28/17 13:31 Lab Results 09/28/17 09/28/17 Range/Units 13:31 13:31 WBC 7.5 (4.3-11.1) K/mcL RBC 3.56 L (4.19-5.50) M/mcL Hgb 11.4 L (12.9-16.9) g/dL Hct 33.9 L (37.5-50.1) % MCV 95.2 (83.0-100.0) fL MCH 32.0 (28.0-33.3) pg MCHC 33.6 (31.6-35.5) g/dL RDW 12.8 (11.5-14.5) % Plt Count 184 (140-400) K/mcL MPV 10.6 (9.4-12.4) fL Immature Gran % 0.3 (0-4) % Seg Neutrophils % 67.3 % Lymphocytes % 23.5 % Monocytes % 6.4 % Eosinophils % 2.0 % Basophils % 0.5 % Neutrophils # 5.0 (1.6-8.9) K/mcL Lymphocytes # 1.8 (0.6-4.6) K/mcL Monocytes # 0.5 (0.0-1.3) K/mcL Eosinophils # 0.2 (0.0-0.6) K/mcL Basophils # 0.0 (0.0-0.2) K/mcL Sodium 141 (136-145) mEq/L Potassium 4.1 (3.5-5.1) mEq/L Chloride 105 (98-107) mEq/L Carbon Dioxide 28 (23-29) mEq/L BUN 60 H (8-23) mg/dL Creatinine 3.35 H (0.70-1.30) mg/dL Est GFR ( Amer) 21 L (> 60) Est GFR (Non-Af Amer) 18 L (> 60) BUN/Creatinine Ratio 18 (6-26) Glucose 111 H (70-105) mg/dL Calculated Osmolality 310 H (280-300) Calcium 9.1 (8.6-10.3) mg/dL Total Bilirubin 0.4 (0.3-1.0) mg/dL Direct Bilirubin 0.1 (0.0-0.2) mg/dL Indirect Bilirubin 0.3 (0.0-1.2) mg/dL AST 19 (13-39) Units/L ALT 15 (7-52) Units/L Alkaline Phosphatase 87 (34-104) Units/L Serum Total Protein 6.8 (6.4-8.9) g/dL Albumin 3.7 (3.5-5.7) g/dL Globulin 3.1 (2.4-3.5) g/dL Albumin/Globulin Ratio 1.2 (1.1-2.2) Lipase 88 H (11-82) Units/L - Radiology Data Radiology results reviewed: Yes I reviewed the patient's radiology results. - EKG Data EKG #1 EKG attestation: Yes I reviewed and interpreted this EKG. EKG results narrative: AV paced at rate of 60, without evidence of STEMI.
[2017-09-28] MEDS ORDERED: Naloxone 0.4 MG/ML INJ IVP PRN (16:37)
--- NOTE | 2017-09-28 16:56 | Internal Med History&Physical ---
<Anca Gamboa Douglas - Last Filed: 09/28/17 21:02> Date of Encounter: 09/28/17 Time of Encounter: 16:51 Internal Medicine - H&P: HPI Admitted From: Home Plans for Post Hospital Care: Home History of present illness: Mr. Avendaño is a 87 year old male MINOR, DM, Anemia, HTN, and epigastric pain. The patient was here in the ED on 09/25/[address] of abdomen and pelvis showed no acute disease. The CT did show enlarged heart, aortic and coronary artery calcification and a 12 mm cyst in the right hepatic lobe. The patient also indicated that he was on atb therapy three weeks ago for similar symptoms. He indicated he had diarrhea up until 2 days ago and the nausea and vomiting has persisted for the past 3 days. Today he indicates he has had constipation now for 2 days, he is eating very little due to poor appetite and inability to keep anything down. Lipase elevated at 88. Creatinine is baseline is 2.2 today presents with 3.3 creat, bun is 60. Schedule for abdominal x-ray at this time. Awaiting results. WBC is 7.5. Complaints of generalized abdominal pain with light and deep palpation. Past Med Surg Social Fam HX - Past Medical History Medical history: CHF, diabetes, GERD, hyperlipidemia, hypertension, kidney stones, myocardial infarction Psychiatric history: depression - Past Surgical History Surgical History: cholecystectomy, coronary bypass (CABG), pacemaker/AICD - Social History Smoking Status: Former smoker Smokeless Tobacco Status: No Alcohol use: none Drug use: none - Family History Mother Living Status: Hx Family Cardiac Disorders: Yes Father Living Status: Hx Family Cardiac Disorders: Yes Sister Living Status: Hx Family Cardiac Disorders: Yes (cardiac dx) Internal Medicine - H&P: Meds Amlodipine Besylate 10 mg PO DAILY 08/20/17 [History] Aspirin [Lo-Dose Aspirin EC] 81 mg PO DAILY 08/20/17 [History] Atenolol [Tenormin] 50 mg PO DAILY 08/20/17 [History] Atorvastatin Calcium [Lipitor] 80 mg PO HS 08/20/17 [History] Calcitriol [Rocaltrol] 0.25 mcg PO DAILY 08/20/17 [History] Cetirizine HCl [All Day Allergy] 10 mg PO DAILY 08/20/17 [History] Clopidogrel [Plavix] 75 mg PO DAILY 08/20/17 [History] Febuxostat [Uloric] 40 mg PO DAILY 08/20/17 [History] Furosemide [Lasix] 20 mg PO DAILY PRN 08/20/17 [History] Gabapentin [Neurontin] 300 mg PO QAM 08/20/17 [History] Gabapentin [Neurontin] 600 mg PO HS 08/20/17 [History] Ipratropium [place] 1 spr NS BID 08/20/17 [History] Levothyroxine [Synthroid] 50 mcg PO 0630 08/20/17 [History] Mirabegron [Myrbetriq] 50 mg PO DAILY 08/20/17 [History] Multivitamin [Multivitamins] 1 cap PO DAILY 08/20/17 [History] [place]-3/Dha/Epa/Fish Oil [Fish Oil 500 mg Softgel] 1 cap PO DAILY 08/20/17 [ History] hydroCHLOROthiazide [Hydrochlorothiazide] 25 mg PO DAILY 08/20/17 [History] Isosorbide MONOnitrate (24 HR) [Imdur] 30 mg PO DAILY #30 tab.er.24h 08/22/17 [ Rx] Nitroglycerin [Nitrostat] 0.4 mg SL Q5MIN PRN #30 tab.subl 08/22/17 [Rx] Pantoprazole Sodium 40 mg PO DAILY #30 tablet.dr 08/22/17 [Rx] Ondansetron ODT [Zofran ODT] 4 mg SL Q4HR PRN #14 tab.rapdis 09/25/17 [Rx] 3 Allergy/AdvReac Type Severity Reaction Status Date / Time tape AdvReac skin Uncoded 09/28/17 12:08 breakdown All Systems PM: A 10-system review of systems was performed and is negative for pertinent findings except as documented above in the HPI. - Constitutional Constitutional: no chills, no fever(s), no night sweats - EENT Eyes: no change in vision, no discharge, no pain, no photophobia Ears: no ear discharge, no ear pain, no tinnitus Nose, mouth and throat: no dysphagia, no nasal discharge, no neck pain, no sore throat - Cardiovascular Cardiovascular ROS IM: no chest pain, no diaphoresis, no dyspnea, no lightheadedness, no palpitations, no syncope - Respiratory Respiratory: no cough, no dyspnea, no wheezing, no excessive phlegm production - Gastrointestinal Gastrointestinal: abdominal pain, change in bowel habits, change in stool character, diarrhea, nausea, vomiting, no hematemesis, no hematochezia, no melena - Musculoskeletal Musculoskeletal ROS IM: no numbness, no tingling - Integumentary Integumentary IM: no rash, no unusual bruising - Neurological Neurological ROS: no confusion, no convulsions, no focal weakness, no numbness, no tingling, no tremor(s) - Hematologic/Lymphatic Hematologic/Lymphatic: no easy bruising - Constitutional Vitals: Temp Pulse Resp BP Pulse Ox 98.2 F 60 18 152/63 96 09/28/17 14:44 09/28/17 16:07 09/28/17 14:44 09/28/17 16:07 09/28/17 16:07 General appearance: Present: mild distress, A&O X 3 - Head Head exam: Present: atraumatic, normocephalic - Eye Eye exam: Present: PERRL, conjuntiva pink, sclera anicteric Pupils: Present: PERRL - Neck Neck exam general surgery: Present: supple, trachea midline. Absent: lymphadenopathy - Respiratory Respiratory exam: Present: CTAB. Absent: accessory muscle use, rales, rhonchi, wheezes - Cardiovascular Cardiovascular exam: Present: RRR, +S1, +S2. Absent: diastolic murmur, gallop, rubs, systolic murmur - GI/Abdominal GI/Abdominal exam: Present: hyperactive bowel sounds, soft, tenderness ( Generalized), no peritoneal signs. Absent: distended - Extremities Exam Extremities exam: Present: warm, radial pulses palpable and symmetrical. Absent : calf tenderness, cyanotic, pedal edema - Neurological Exam Neurological exam: Present: CN II-XII intact, oriented X3, no focal deficits. Absent: pronater drift, facial droop, speech deficit - Skin Skin exam: Present: dry, intact Internal Med - H&P Results - Labs CBC & Chem 7: 09/28/17 13:31 09/28/17 13:31 Labs: Short CBC 09/28/17 Range/Units 13:31 WBC 7.5 (4.3-11.1) K/mcL Hgb 11.4 L (12.9-16.9) g/dL Hct 33.9 L (37.5-50.1) % Plt Count 184 (140-400) K/mcL Neutrophils # 5.0 (1.6-8.9) K/mcL BMP 09/28/17 13:31 Sodium 141 Potassium 4.1 Chloride 105 Carbon Dioxide 28 BUN 60 H Creatinine 3.35 H Glucose 111 H Calcium 9.1 Cardiac Enzymes 09/28/17 Range/Units 16:18 Troponin I < 0.03 (< 0.04) ng/mL Liver Function 09/28/17 Range/Units 13:31 Total Bilirubin 0.4 (0.3-1.0) mg/dL Direct Bilirubin 0.1 (0.0-0.2) mg/dL AST 19 (13-39) Units/L ALT 15 (7-52) Units/L Alkaline Phosphatase 87 (34-104) Units/L Albumin 3.7 (3.5-5.7) g/dL - Assessment and plan (1) Abdominal pain Current Visit: Yes Status: Acute Assessment and plan: Abdominal xray NPO cmp and cbc daily Qualifiers: Abdominal location: generalized Qualified Code(s): R10.84 - Generalized abdominal pain (2) Nausea & vomiting Current Visit: No Status: Acute Assessment and plan: Abdominal xray NPO cmp and cbc daily Zofran iv prn IVF's Qualifiers: Vomiting type: unspecified Vomiting Intractability: non-intractable Qualified Code(s): R11.2 - Nausea with vomiting, unspecified (3) MINOR (acute kidney injury) Current Visit: No Status: Resolved Assessment and plan: -IVF'S -Baseline creat is 2.2 -Monitor Daily labs -CBC, CMP in AM - O2 to keep SpO2 higher than 92% - Tylenol 650 mg PO q 4hr PRN pain - Home meds - Heparin 5000 U SQ BID (4) Elevated lipase Current Visit: Yes Status: Acute Assessment and plan: NPO. 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 use Diabetes mellitus complication status: with kidney complications Diabetes mellitus complication detail: with chronic kidney disease Chronic kidney disease stage: stage 3 (moderate) Qualified Code(s): E11.22 - Type 2 diabetes mellitus with diabetic chronic kidney disease; N18.3 - Chronic kidney disease, stage 3 (moderate) - Time Spent With Patient Total time spent is greater than 50% in coordination of care (as documented) at patient's floor/unit and/or counseling patient: 25 - 35 minutes <Natalio Hoffman - Last Filed: 09/29/17 08:26> Date of Encounter: 09/28/17 Internal Medicine - H&P: HPI History of present illness: Mr. Avendaño is a 87 year old male All Systems PM: A 10-system review of systems was performed and is negative for pertinent findings except as documented above in the HPI. - Constitutional Vitals: Temp Pulse Resp BP Pulse Ox 97.9 F 60 14 137/63 92 09/29/17 05:59 09/29/17 05:59 09/29/17 05:59 09/29/17 05:59 09/29/17 05:59 Internal Med - H&P Results - Labs CBC & Chem 7: 09/29/17 05:53 09/29/17 05:53 Labs: Short CBC 09/29/17 Range/Units 05:53 WBC 5.9 (4.3-11.1) K/mcL Hgb 9.8 L D (12.9-16.9) g/dL Hct 28.9 L (37.5-50.1) % Plt Count 167 (140-400) K/mcL Neutrophils # 3.7 (1.6-8.9) K/mcL BMP 09/29/17 05:53 Sodium 144 Potassium 3.9 Chloride 111 H Carbon Dioxide 27 BUN 49 H Creatinine 2.55 H Glucose 86 Calcium 8.2 L Cardiac Enzymes 09/28/17 09/29/17 Range/Units 22:19 05:53 Troponin I < 0.03 < 0.03 (< 0.04) ng/mL Liver Function 09/29/17 Range/Units 05:53 Total Bilirubin 0.4 (0.3-1.0) mg/dL AST 16 (13-39) Units/L ALT 12 (7-52) Units/L Alkaline Phosphatase 72 (34-104) Units/L Albumin 2.9 L (3.5-5.7) g/dL - Attending Attestation I have personally performed a face to face evaluation on this patient. I have reviewed and agree with the care plan provided by PRICE LISTER Anca Gamboa. History and Exam by me shows: Mr. Avendaño is a 87 year old male MINOR, DM, Anemia, HTN pt who has been having intermittent abdomina pain, with nausea / vomiting form last 3 weeks which is progressively worsening form last 2-3 days. Pt was here in the ED on 09/25/[address] of abdomen and pelvis showed no acute disease. Today he indicates he has had constipation now for 2 days, he is eating very little due to poor appetite and inability to keep anything down. Lipase elevated at 88. Creatinine is baseline is 2.2 today presents with 3.3 Cr. Pt denied any CP / SOB. Gen: A, A, O x 3 CHest: Diminishes BS b/l Heart: S1S2+ Abd: Soft, mildly distended, tympanic notes + a/p 1. Acute intractable N/V Concerning for partial SBO vs Ileus vs Fecal impaction will get X ray of Abd cont symptomatic and supportive care 2. MINOR with CKD-3 IV fluids - Time Spent With Patient Total time spent is greater than 50% in coordination of care (as documented) at patient's floor/unit and/or counseling patient:
[2017-09-28] MEDS ORDERED: Ondansetron 4 MG/2 ML VIAL IVP PRN (17:20)
[2017-09-28] MEDS ORDERED: Acetaminophen 325 MG TABLET PO PRN (17:31)
[2017-09-28] MEDS ORDERED: Furosemide 20 MG TABLET PO PRN (17:33)
[2017-09-28] MEDS: 0.9 % Sodium Chloride 1,000 ML IVC SCH (19:52)
[2017-09-28] MEDS: (Ipratropium Bromide [Ipratropium Bromide] 1 SPR) NS SCH (19:58)
[2017-09-28] MEDS ORDERED: Gabapentin 300 MG CAPSULE PO SCH (21:00)
[2017-09-29] MEDS: 0.9 % Sodium Chloride 1,000 ML IVC SCH ×2 (03:25→19:29)
[2017-09-29 06:24] LABS: Basophils % 0.3 %; Eosinophils # 0.2 K/mcL (0.0-0.6); Hematocrit 28.9 % (37.5-50.1); Immature Granulocytes % 0.5 % (0-4); Lymphocytes # 1.6 K/mcL (0.6-4.6); Lymphocytes % 26.4 %; Mean Corpuscular HGB Conc 33.9 g/dL (31.6-35.5); Mean Corpuscular Hemoglobin 32.3 pg (28.0-33.3); Mean Corpuscular Volume 95.4 fL (83.0-100.0); Mean Platelet Volume 10.5 fL (9.4-12.4); Monocytes # 0.5 K/mcL (0.0-1.3); Monocytes % 7.7 %; Neutrophils # 3.7 K/mcL (1.6-8.9); Platelet Count 167 K/mcL (140-400); Red Blood Count 3.03 M/mcL (4.19-5.50); Red Cell Distribution Width 12.9 % (11.5-14.5); Segmented Neutrophils % 62.1 %
[2017-09-29 06:25] LABS: Hemoglobin 9.8 g/dL (12.9-16.9)
[2017-09-29 06:43] LABS: Albumin 2.9 g/dL (3.5-5.7); Albumin/Globulin Ratio 1.1 (1.1-2.2); Bilirubin,Total 0.4 mg/dL (0.3-1.0); Calcium 8.2 mg/dL (8.6-10.3); Globulin 2.7 g/dL (2.4-3.5); Potassium 3.9 mEq/L (3.5-5.1); Total Protein 5.6 g/dL (6.4-8.9)
[2017-09-29] MEDS ORDERED: DHA PO SCH (09:00)
[2017-09-29] MEDS ORDERED: hydroCHLOROthiazide 25 MG TABLET PO SCH (09:00)
[2017-09-29] MEDS ORDERED: EPA PO SCH (09:00)
[2017-09-29] MEDS ORDERED: FISH OIL PO SCH (09:00)
[2017-09-29] MEDS ORDERED: OMEGA PO SCH (09:00)
[2017-09-29] MEDS ORDERED: (Febuxostat [Uloric] 40 MG) PO SCH (09:00)
[2017-09-29] MEDS: Isosorbide MONOnitrate (24 HR) 30 MG TAB.ER.24H PO SCH (09:04)
[2017-09-29] MEDS: amLODIPine 5 MG TABLET PO SCH (09:04)
[2017-09-29] MEDS: (Ipratropium Bromide [Ipratropium Bromide] 1 SPR) NS SCH (09:05)
[2017-09-29] MEDS: Aspirin Enteric Coated 81 MG Tablet PO SCH (09:05)
[2017-09-29] MEDS: Multivit/Ca/Min/Fe/FA 1 TAB TABLET PO SCH (09:05)
[2017-09-29] MEDS: Gabapentin 300 MG CAPSULE PO SCH (09:05)
[2017-09-29] MEDS: Loratadine 10 MG TABLET PO SCH (09:05)
--- NOTE | 2017-09-29 11:06 | Internal Med Progress Note ---
Date of Encounter: 09/29/17 Time of Encounter: 10:00 - Assessment and plan (1) Acute kidney injury superimposed on chronic kidney disease Current Visit: Yes Status: Acute Assessment and plan: Multifactorial renal failure. Acute kidney failure on chronic kidney disease stage III. Stop hydrochlorothiazide, stop Lasix. Suspect diarrhea contributed to this. Continue gentle IV fluids, encourage oral intake. Avoid all unnecessary nephrotoxins, monitor. (2) Abdominal pain Current Visit: Yes Status: Acute Assessment and plan: On September [address] abdomen and pelvis without contrast which was essentially a negative study. Abdominal x-ray on admission on September 28 showed no acute process. She does have a mildly elevated lipase and cannot exclude a mild pancreatitis. Symptoms are improved. Continue IV fluids. We will start a clear diet and monitor. I discussed in detail with the patient and the family at the bedside. If he does not improve with conservative management, would consider referral for EGD looking for gastritis or other process to explain his abdominal pain. I would not want to pursue this study acutely in the setting of acute renal failure and pancreatitis unless absolutely necessary. This may also be a viral gastroenteritis. Duration of symptoms and the lack of blood in his stool argue against an ischemic colitis-type abdominal pain. (3) Diarrhea Current Visit: No Status: Acute Assessment and plan: Resolving. Monitor Qualifiers: Diarrhea type: unspecified type Qualified Code(s): R19.7 - Diarrhea, unspecified (4) Hypertension Current Visit: No Status: Chronic Assessment and plan: Stable, monitor Chlorothiazide is stopped. Lasix is on hold. He continues on atenolol 50 mg by mouth daily and Norvasc 10 mg by mouth daily, as well as Imdur 30 mg by mouth daily. Qualifiers: Hypertension type: essential hypertension Qualified Code(s): I10 - Essential (primary) hypertension (5) Diabetes mellitus Current Visit: No Status: Chronic Assessment and plan: Stable, monitor Has had excellent glycemic control in the hospital thus far. Qualifiers: Diabetes mellitus type: type 2 Diabetes mellitus alf insulin use: without alf use Diabetes mellitus complication status: with kidney complications Diabetes mellitus complication detail: with chronic kidney disease Chronic kidney disease stage: stage 3 (moderate) Qualified Code(s): E11.22 - Type 2 diabetes mellitus with diabetic chronic kidney disease; N18.3 - Chronic kidney disease, stage 3 (moderate) - Time Spent With Patient Total time spent is greater than 50% in coordination of care (as documented) at patient's floor/unit and/or counseling patient: 25 - 35 minutes - Subjective Interval history: Mr. Avendaño is a 87 year old male MINOR, DM, Anemia, HTN, and epigastric pain. The patient was here in the ED on 09/25/[address] of abdomen and pelvis showed no acute disease. The CT did show enlarged heart, aortic and coronary artery calcification and a 12 mm cyst in the right hepatic lobe. The patient also indicated that he was on atb therapy three weeks ago for similar symptoms. He indicated he had diarrhea up until 2 days ago and the nausea and vomiting has persisted for the past 3 days. Today he indicates he has had constipation now for 2 days, he is eating very little due to poor appetite and inability to keep anything down. Lipase elevated at 88. Creatinine is baseline is 2.2 today presents with 3.3 creat, bun is 60. Schedule for abdominal x-ray at this time. Awaiting results. WBC is 7.5. Complaints of generalized abdominal pain with light and deep palpation. 09/29: Patient states he feels much better today. He is hungry. He had a bowel movement yesterday which he stated was firm but otherwise has no nausea, vomiting, diarrhea. States he does not feel constipated. He continues to have some mild abdominal pain which she describes as vague, but points to his mid abdomen. Fevers or chills. No chest pain or shortness of breath. - Constitutional Vitals: Temp Pulse Resp BP Pulse Ox 97.9 F 60 14 137/63 92 09/29/17 05:59 09/29/17 05:59 09/29/17 05:59 09/29/17 05:59 09/29/17 08:31 General appearance: Present: mild distress, A&O X 3 Exam: Nontoxic appearance, very hard of hearing - Head Head exam: Present: atraumatic, normocephalic - Eye Eye exam: Present: PERRL, conjuntiva pink, sclera anicteric Pupils: Present: PERRL - Neck Neck exam general surgery: Present: supple, trachea midline. Absent: lymphadenopathy - Respiratory Respiratory exam: Present: CTAB. Absent: accessory muscle use, rales, rhonchi, wheezes - Cardiovascular Cardiovascular exam: Present: RRR, +S1, +S2. Absent: diastolic murmur, gallop, rubs, systolic murmur - GI/Abdominal GI/Abdominal exam: Present: normal bowel sounds, soft, tenderness - Extremities Exam Extremities exam: Present: warm, radial pulses palpable and symmetrical. Absent : calf tenderness, cyanotic, pedal edema - Neurological Exam Neurological exam: Present: CN II-XII intact, oriented X3, no focal deficits. Absent: pronater drift, facial droop, speech deficit - Skin Skin exam: Present: dry, intact Internal Medicine: Result - Labs CBC & Chem 7: 09/29/17 05:53 09/29/17 05:53 Labs: Short CBC 09/29/17 Range/Units 05:53 WBC 5.9 (4.3-11.1) K/mcL Hgb 9.8 L D (12.9-16.9) g/dL Hct 28.9 L (37.5-50.1) % Plt Count 167 (140-400) K/mcL Neutrophils # 3.7 (1.6-8.9) K/mcL BMP 09/29/17 05:53 Sodium 144 Potassium 3.9 Chloride 111 H Carbon Dioxide 27 BUN 49 H Creatinine 2.55 H Glucose 86 Calcium 8.2 L Cardiac Enzymes 09/28/17 09/29/17 Range/Units 22:19 05:53 Troponin I < 0.03 < 0.03 (< 0.04) ng/mL Liver Function 09/29/17 Range/Units 05:53 Total Bilirubin 0.4 (0.3-1.0) mg/dL AST 16 (13-39) Units/L ALT 12 (7-52) Units/L Alkaline Phosphatase 72 (34-104) Units/L Albumin 2.9 L (3.5-5.7) g/dL - VTE Documentation of Mechanical Device: Intermittent pneumatic compression device Consult Discharge Plan - Plan Referrals: Avel Linares MD [Primary Care Provider] -
--- NOTE | 2017-09-29 14:46 | Electrocardiograph Report ---
[place] [id number] Test Date: 2017-09-28 Pat Name: Neftali [facility] Department: 103 Room: 3A41 Gender: M Inspector Assembly: : 1930 Requested By: Idris Linn Order Number: [id number] Reading MD: Fabiola Mccarty Measurements Intervals [place] Rate: 60 P: -89 LA: 224 QRS: -83 QRSD: 174 T: 129 QT: 517 QTc: 517 Interpretive Statements ELECTRONIC ATRIAL PACEMAKER ELECTRONIC VENTRICULAR PACEMAKER ABNORMAL RHYTHM ECG Electronically Signed On 09-29-2017 14:44:51 EDT by Fabiola Mccarty
[2017-09-29] MEDS ORDERED: Gabapentin 400 MG CAPSULE PO SCH (21:00)
[2017-09-30 06:02] LABS: Basophils % 0.4 %; Eosinophils # 0.2 K/mcL (0.0-0.6); Eosinophils % 2.8 %; Hematocrit 29.7 % (37.5-50.1); Hemoglobin 9.7 g/dL (12.9-16.9); Immature Granulocytes % 0.1 % (0-4); Lymphocytes # 1.5 K/mcL (0.6-4.6); Lymphocytes % 22.8 %; Mean Corpuscular HGB Conc 32.7 g/dL (31.6-35.5); Mean Corpuscular Hemoglobin 30.8 pg (28.0-33.3); Mean Corpuscular Volume 94.3 fL (83.0-100.0); Mean Platelet Volume 10.6 fL (9.4-12.4); Monocytes # 0.5 K/mcL (0.0-1.3); Monocytes % 7.1 %; Neutrophils # 4.5 K/mcL (1.6-8.9); Platelet Count 170 K/mcL (140-400); Red Blood Count 3.15 M/mcL (4.19-5.50); Red Cell Distribution Width 12.9 % (11.5-14.5); Segmented Neutrophils % 66.8 %
[2017-09-30 06:18] LABS: Calcium 7.9 mg/dL (8.6-10.3); Potassium 3.8 mEq/L (3.5-5.1)
[2017-09-30] MEDS: Loratadine 10 MG TABLET PO SCH (08:10)
[2017-09-30] MEDS: 0.9 % Sodium Chloride 1,000 ML IVC SCH (08:10)
[2017-09-30] MEDS: Gabapentin 300 MG CAPSULE PO SCH (08:10)
[2017-09-30] MEDS: amLODIPine 5 MG TABLET PO SCH (08:10)
[2017-09-30] MEDS: Isosorbide MONOnitrate (24 HR) 30 MG TAB.ER.24H PO SCH (08:10)
[2017-09-30] MEDS: Aspirin Enteric Coated 81 MG Tablet PO SCH (08:10)
[2017-09-30] MEDS: Multivit/Ca/Min/Fe/FA 1 TAB TABLET PO SCH (08:10)
[2017-09-30 11:54] VITALS: BP 164/66
--- NOTE | 2017-09-30 12:37 | Discharge Summary ---
Date of Encounter: 09/30/17 Time of Encounter: 10:00 - Discharge Diagnosis (1) Acute kidney injury superimposed on chronic kidney disease Priority: Primary Status: Acute (2) Abdominal pain Priority: Primary Status: Acute (3) Diarrhea Priority: Primary Status: Acute Assessment and Plan: Resolving. Monitor Qualifiers: Diarrhea type: unspecified type Qualified Code(s): R19.7 - Diarrhea, unspecified (4) Hypertension Priority: Secondary Status: Chronic Qualifiers: Hypertension type: essential hypertension Qualified Code(s): I10 - Essential (primary) hypertension (5) Diabetes mellitus Priority: Secondary Status: Chronic Qualifiers: Diabetes mellitus type: type 2 Diabetes mellitus assistant terminal manager insulin use: without residential use Diabetes mellitus complication status: with kidney complications Diabetes mellitus complication detail: with chronic kidney disease Chronic kidney disease stage: stage 3 (moderate) Qualified Code(s): E11.22 - Type 2 diabetes mellitus with diabetic chronic kidney disease; N18.3 - Chronic kidney disease, stage 3 (moderate) Hospital course: Mr. Avendaño is a 87 year old male MINOR, DM, Anemia, HTN, and epigastric pain. The patient was here in the ED on 09/25/[address] of abdomen and pelvis showed no acute disease. The CT did show enlarged heart, aortic and coronary artery calcification and a 12 mm cyst in the right hepatic lobe. The patient also indicated that he was on atb therapy three weeks ago for similar symptoms. He indicated he had diarrhea up until 2 days ago and the nausea and vomiting has persisted for the past 3 days. Today he indicates he has had constipation now for 2 days, he is eating very little due to poor appetite and inability to keep anything down. Lipase elevated at 88. Creatinine is baseline is 2.2 today presents with 3.3 creat, bun is 60. Schedule for abdominal x-ray at this time. Awaiting results. WBC is 7.5. Complaints of generalized abdominal pain with light and deep palpation. 09/29: Patient states he feels much better today. He is hungry. He had a bowel movement yesterday which he stated was firm but otherwise has no nausea, vomiting, diarrhea. States he does not feel constipated. He continues to have some mild abdominal pain which she describes as vague, but points to his mid abdomen. Fevers or chills. No chest pain or shortness of breath. 09/30: Patient had an uneventful hospital stay. On day of discharge he was feeling well without any complaints except that he wants to go home. Patient was given IV fluids and he improved. His creatinine went from 3.35 on admission to 1.78 on day of discharge. This was near or at his baseline creatinine over the last several years. Patient's lipase normalized. He did stop his hydrochlorothiazide and Lasix. His blood pressure remained elevated and we did not adjust his home medications to include eye drowsy and 25 mg by mouth 3 times a day. Patient was otherwise doing well and advised to follow-up with his primary care provider. We did emphasize importance of staying well- hydrated, as he was felt to be dehydrated on admission. Patient's abdominal pain was felt to be due to possibly a viral gastroenteritis and/or mild pancreatitis. His diarrhea had resolved completely. He had no evidence for bacterial infection. Patient was deemed stable for discharge. 33 minutes spent on discharge and coordination of care. Follow-up with primary care provider next week. Discharge discussed with: patient, family - Time Spent with Patient Total time spent providing and/or coordinating discharge services: Greater than 30 minutes (33) - Discharge Medications Home Medications: Amlodipine Besylate 10 mg PO DAILY 08/20/17 [History] Aspirin [Lo-Dose Aspirin EC] 81 mg PO DAILY 08/20/17 [History] Atenolol [Tenormin] 50 mg PO DAILY 08/20/17 [History] Atorvastatin Calcium [Lipitor] 80 mg PO HS 08/20/17 [History] Calcitriol [Rocaltrol] 0.25 mcg PO DAILY 08/20/17 [History] Cetirizine HCl [All Day Allergy] 10 mg PO DAILY 08/20/17 [History] Clopidogrel [Plavix] 75 mg PO DAILY 08/20/17 [History] Febuxostat [Uloric] 40 mg PO DAILY 08/20/17 [History] Furosemide [Lasix] 20 mg PO DAILY PRN 08/20/17 [History] Gabapentin [Neurontin] 300 mg PO QAM 08/20/17 [History] Gabapentin [Neurontin] 600 mg PO HS 08/20/17 [History] Ipratropium [place] 1 spr NS BID 08/20/17 [History] Levothyroxine [Synthroid] 50 mcg PO 0630 08/20/17 [History] Mirabegron [Myrbetriq] 50 mg PO DAILY 08/20/17 [History] Multivitamin [Multivitamins] 1 cap PO DAILY 08/20/17 [History] [place]-3/Dha/Epa/Fish Oil [Fish Oil 500 mg Softgel] 1 cap PO DAILY 08/20/17 [ History] hydroCHLOROthiazide [Hydrochlorothiazide] 25 mg PO DAILY 08/20/17 [History] Isosorbide MONOnitrate (24 HR) [Imdur] 30 mg PO DAILY #30 tab.er.24h 08/22/17 [ Rx] Nitroglycerin [Nitrostat] 0.4 mg SL Q5MIN PRN #30 tab.subl 08/22/17 [Rx] Pantoprazole Sodium 40 mg PO DAILY #30 tablet.dr 08/22/17 [Rx] Ondansetron ODT [Zofran ODT] 4 mg SL Q4HR PRN #14 tab.rapdis 09/25/17 [Rx] Allergies/Adverse Reactions: 3 Allergy/AdvReac Type Severity Reaction Status Date / Time tape AdvReac skin Uncoded 09/28/17 12:08 breakdown Date of admission: 09/28/17 17:20 Primary care physician: Avel Linares MD Discharging clinician: Lionel Thakur Anticipated date of discharge: 09/30/17 - Constitutional Vitals: Temp Pulse Resp BP Pulse Ox 98.3 F 58 16 164/66 94 09/30/17 11:48 09/30/17 11:48 09/30/17 11:48 09/30/17 11:48 09/30/17 11:48 General appearance: Present: mild distress, A&O X 3 - Head Head exam: Present: atraumatic, normocephalic - Eye Eye exam: Present: PERRL, conjuntiva pink, sclera anicteric Pupils: Present: PERRL - Neck Neck exam general surgery: Present: supple, trachea midline. Absent: lymphadenopathy - Respiratory Respiratory exam: Present: CTAB. Absent: accessory muscle use, rales, rhonchi, wheezes - Cardiovascular Cardiovascular exam: Present: RRR, +S1, +S2. Absent: diastolic murmur, gallop, rubs, systolic murmur - GI/Abdominal GI/Abdominal exam: Present: normal bowel sounds, soft, no peritoneal signs. Absent: distended, tenderness - Extremities Exam Extremities exam: Present: warm, radial pulses palpable and symmetrical. Absent : calf tenderness, cyanotic, pedal edema - Neurological Exam Neurological exam: Present: CN II-XII intact, oriented X3, no focal deficits. Absent: pronater drift, facial droop, speech deficit - Skin Skin exam: Present: dry, intact - Patient Status Disposition: Home, Self-Care Condition: Fair Overall status at discharge: patient is back to baseline - Discharge Instructions Instructions: Dehydration (GEN) Follow Up With: Avel Linares MD [Primary Care Provider] - Additional Instructions: Follow-up with primary care provider in one week - Diet and Activity Activity: increase activity as tolerated Diet: advance to your usual diet - VTE Documentation of Mechanical Device: Intermittent pneumatic compression device
--- NOTE | 2017-09-30 14:53 | Physician Discharge Referral ---
Home Health/Hosp Referral Info Transfer to: Home Health Attending Provider: néstor ac Provider in Charge Post Discharge: PCP - Diagnosis (1) Acute kidney injury superimposed on chronic kidney disease Status: Acute (2) Abdominal pain Status: Acute (3) Diarrhea Status: Acute (4) Hypertension Status: Chronic (5) Diabetes mellitus Status: Chronic - Respiratory Orders Smoking Cessation: Smoking cessation has been advised. For more information, call the [place] Tobacco Quit Line at 8-814-GZMA-NOW. - Transfer Medications Prescriptions: hydrALAZINE [HydrALAZINE] 25 mg PO Q8HR 30 Days #90 tablet Home Medications: Amlodipine Besylate 10 mg PO DAILY 08/20/17 [History] Aspirin [Lo-Dose Aspirin EC] 81 mg PO DAILY 08/20/17 [History] Atenolol [Tenormin] 50 mg PO DAILY 08/20/17 [History] Atorvastatin Calcium [Lipitor] 80 mg PO HS 08/20/17 [History] Calcitriol [Rocaltrol] 0.25 mcg PO DAILY 08/20/17 [History] Cetirizine HCl [All Day Allergy] 10 mg PO DAILY 08/20/17 [History] Clopidogrel [Plavix] 75 mg PO DAILY 08/20/17 [History] Febuxostat [Uloric] 40 mg PO DAILY 08/20/17 [History] Gabapentin [Neurontin] 300 mg PO QAM 08/20/17 [History] Gabapentin [Neurontin] 600 mg PO HS 08/20/17 [History] Ipratropium [place] 1 spr NS BID 08/20/17 [History] Levothyroxine [Synthroid] 50 mcg PO 0630 08/20/17 [History] Mirabegron [Myrbetriq] 50 mg PO DAILY 08/20/17 [History] Multivitamin [Multivitamins] 1 cap PO DAILY 08/20/17 [History] [place]-3/Dha/Epa/Fish Oil [Fish Oil 500 mg Softgel] 1 cap PO DAILY 08/20/17 [ History] Isosorbide MONOnitrate (24 HR) [Imdur] 30 mg PO DAILY #30 tab.er.24h 08/22/17 [ Rx] Nitroglycerin [Nitrostat] 0.4 mg SL Q5MIN PRN #30 tab.subl 08/22/17 [Rx] Pantoprazole Sodium 40 mg PO DAILY #30 tablet. 08/22/17 [Rx] Ondansetron ODT [Zofran ODT] 4 mg SL Q4HR PRN #14 tab.rapdis 09/25/17 [Rx] Acetaminophen [Tylenol] 650 mg PO Q6HR PRN tablet 09/30/17 [Rx] Docusate [Colace] 100 mg PO DAILY PRN capsule 09/30/17 [Rx] Gabapentin [Neurontin] 400 mg PO HS capsule 09/30/17 [Rx] Multivit/Ca/Min/Fe/FA [Thera M Plus] 1 tab PO DAILY tablet 09/30/17 [Rx] hydrALAZINE [HydrALAZINE] 25 mg PO Q8HR 30 Days #90 tablet 09/30/17 [Rx] Allergies/Adverse Reactions: 3 Allergy/AdvReac Type Severity Reaction Status Date / Time tape AdvReac skin Uncoded 09/28/17 12:08 breakdown Certification: Further, I certify that my clinical findings support that this patient is homebound (i.e. absences from home require considerable and taxing effort and are for medical reasons or bahai services or infrequently or short duration when for other reasons) because: Homebound Reason: Patient requires assistance of a person or device to safely leave home Attestation: My signature below is to certify that this patient is under my care and that I, or nurse practitioner, or a physician's kindergarten assistant working with me, has a face-to -face encounter with this patient.
== END 2017-09-30 13:55 | disposition home or self-care (01) ==
LOC: 3ANU 12:04 → EMEROO 12:04 → 3ANU 18:30
PROVIDERS: ADMIT Family Medicine; ATTEND Family Medicine

== ENCOUNTER 2017-10-05 09:08 | Inpatient (IN) ==
[2017-10-05] MEDS ORDERED: Ondansetron 4 MG/2 ML VIAL IVP ONE (09:12)
[2017-10-05] MEDS ORDERED: 0.9 % Sodium Chloride 1,000 ML IVC ONE (09:12)
[2017-10-05 09:34] LABS: Basophils % 0.5 %; Eosinophils # 0.2 K/mcL (0.0-0.6); Eosinophils % 2.3 %; Hematocrit 31.5 % (37.5-50.1); Hemoglobin 10.8 g/dL (12.9-16.9); Immature Granulocytes % 0.4 % (0-4); Lymphocytes # 1.1 K/mcL (0.6-4.6); Lymphocytes % 13.9 %; Mean Corpuscular HGB Conc 34.3 g/dL (31.6-35.5); Mean Corpuscular Hemoglobin 32.1 pg (28.0-33.3); Mean Corpuscular Volume 93.8 fL (83.0-100.0); Mean Platelet Volume 10.3 fL (9.4-12.4); Monocytes # 0.6 K/mcL (0.0-1.3); Neutrophils # 5.9 K/mcL (1.6-8.9); Platelet Count 232 K/mcL (140-400); Red Blood Count 3.36 M/mcL (4.19-5.50); Red Cell Distribution Width 13.2 % (11.5-14.5); Segmented Neutrophils % 74.9 %
[2017-10-05 09:42] LABS: Prothrombin Time 10.8 Seconds (9.4-12.1)
[2017-10-05 10:05] LABS: Albumin 3.7 g/dL (3.5-5.7); Albumin/Globulin Ratio 1.3 (1.1-2.2); Bilirubin,Direct 0.1 mg/dL (0.0-0.2); Bilirubin,Indirect 0.4 mg/dL (0.0-1.2); Bilirubin,Total 0.5 mg/dL (0.3-1.0); Calcium 9.1 mg/dL (8.6-10.3); Globulin 2.9 g/dL (2.4-3.5); Potassium 3.3 mEq/L (3.5-5.1); Total Protein 6.6 g/dL (6.4-8.9)
[2017-10-05 10:08] LABS: Bilirubin,Urine Negative (Negative); Blood,Urine Negative (Negative); Clarity,Urine Clear (Clear); Color,Urine Yellow (Yellow); Glucose,Urine (UA) Normal (Normal); Ketones,Urine Negative (Negative); Leukocyte Esterase,Urine Negative (Negative); Nitrite,Urine Negative (Negative); PH,Urine 5.5 pH Units (5.0-8.0); Protein,Urine 100 mg/dL (Neg-Trace); Specific Gravity,Urine 1.013 (1.010-1.025); Urobilinogen,Urine Normal (Normal)
[2017-10-05 10:11] LABS: Bacteria,Urine None Seen per hpf (None-Few); Hyaline Casts,Urine None Seen per lpf (None-Few); RBC,Urine 0-3 per hpf (0-3); Squamous Epithelial Cell,Urine Few per lpf (None-Few); WBC,Urine 0-3 per hpf (0-3)
[2017-10-05 10:24] LABS: Troponin I 0.04 ng/mL (< 0.04)
--- NOTE | 2017-10-05 10:32 | Emergency Department Note ---
Disposition Clinical Impression: Nausea & vomiting Qualifiers: Vomiting type: unspecified Vomiting Intractability: unspecified Qualified Code( s): R11.2 - Nausea with vomiting, unspecified Abdominal pain Qualifiers: Abdominal location: unspecified location Qualified Code(s): R10.9 - Unspecified abdominal pain Disposition: Admitted As Inpatient Condition: Fair Referrals: Avel Linares MD [Primary Care Provider] - Time of Disposition: 11:14 General Adult HPI - General Chief complaint: ED Recheck/Abnormal Lab/Rx Stated complaint: low hgb, nausea Time Seen by Provider: 10/05/17 09:11 Source: patient, family Mode of arrival: ambulatory Limitations: no limitations Nursing Notes Reviewed: Yes Vital Signs Reviewed: Yes - History of Present Illness HPI Narrative: Patient presents emergency room from his [facility] [employer] clinic. Recommend the patient having laboratory workup. Patient denies any other symptoms except for persistent nausea. No other acute concerns or issues at this time. Family is with him describes no changes in medications or medical issues at this point. Is concerned because he had lab abnormalities. Onset (ago): Just [employer]IST Pain Scale: 0 Improves with: nothing Worsens with: nothing Associated symptoms: Reports: denies other symptoms Treatments Prior to Arrival: none - Related Data Home Medications Medication Instructions Recorded Confirmed Amlodipine Besylate 10 mg PO DAILY 08/20/17 09/28/17 Aspirin [Lo-Dose Aspirin EC] 81 mg PO DAILY 08/20/17 09/28/17 Atenolol [Tenormin] 50 mg PO DAILY 08/20/17 09/28/17 Atorvastatin Calcium [Lipitor] 80 mg PO HS 08/20/17 09/28/17 Calcitriol [Rocaltrol] 0.25 mcg PO DAILY 08/20/17 09/28/17 Cetirizine HCl [All Day Allergy] 10 mg PO DAILY 08/20/17 09/28/17 Clopidogrel [Plavix] 75 mg PO DAILY 08/20/17 09/28/17 Febuxostat [Uloric] 40 mg PO DAILY 08/20/17 09/28/17 Gabapentin [Neurontin] 300 mg PO QAM 08/20/17 09/28/17 Gabapentin [Neurontin] 600 mg PO HS 08/20/17 09/28/17 Ipratropium [place] 1 spr NS BID 08/20/17 09/28/17 Levothyroxine [Synthroid] 50 mcg PO 0630 08/20/17 09/28/17 Mirabegron [Myrbetriq] 50 mg PO DAILY 08/20/17 09/28/17 [place]-3/Dha/Epa/Fish Oil [Fish Oil 1 cap PO DAILY 08/20/17 09/28/17 500 mg Softgel] hydroCHLOROthiazide 25 mg PO DAILY 10/05/17 10/05/17 [Hydrochlorothiazide] Previous Rx's Medication Instructions Recorded Isosorbide MONOnitrate (24 HR) 30 mg PO DAILY #30 tab.er.24h 08/22/17 [Imdur] Nitroglycerin [Nitrostat] 0.4 mg SL Q5MIN PRN #30 tab.subl 08/22/17 Pantoprazole Sodium 40 mg PO DAILY #30 tablet.dr 08/22/17 Ondansetron ODT [Zofran ODT] 4 mg SL Q4HR PRN #14 tab.rapdis 09/25/17 Acetaminophen [Tylenol] 650 mg PO Q6HR PRN tablet 09/30/17 Docusate [Colace] 100 mg PO DAILY PRN capsule 09/30/17 Multivit/Ca/Min/Fe/FA [Thera M 1 tab PO DAILY tablet 09/30/17 Plus] hydrALAZINE [HydrALAZINE] 25 mg PO Q8HR 30 Days #90 tablet 09/30/17 Allergies Allergy/AdvReac Type Severity Reaction Status Date / Time tape AdvReac skin Uncoded 10/05/17 09:11 breakdown All systems ED: reviewed and negative except as stated. Review of Systems: As Per HPI Constitutional: Denies: fever, chills, weakness Cardiovascular: Denies: chest pain, palpitations, dyspnea on exertion, edema Respiratory: Denies: cough, dyspnea, wheezes Gastrointestinal: Reports: nausea. Denies: abdominal pain, vomiting, diarrhea, constipation Genitourinary: Denies: urgency, dysuria, frequency Musculoskeletal: Denies: back pain, neck pain Neurological: Denies: headache, weakness Endocrine: Denies: fatigue Past Medical History - Past Medical History Attestation: Yes The following information was validated with the patient. Source: patient Medical history: Reports: CHF, coronary artery disease, diabetes, GERD, hyperlipidemia, hypertension, kidney stones, myocardial infarction, renal disease, thyroid disease Surgical history: Reports: cholecystectomy, coronary bypass (CABG), pacemaker/ AICD Psychiatric history: Reports: depression - Social History Smoking Status: Former smoker Smokeless Tobacco Status: No Alcohol use: Reports: none Drug use: Reports: none Physical Exam - General Limitations: no limitations General appearance: alert, in no apparent distress - Head Head exam: atraumatic, normocephalic, normal inspection - Eye Eye exam: Present: normal appearance, PERRL, EOMI - ENT ENT exam: normal exam, normal oropharynx, mucous membranes moist - Neck Neck exam: Present: normal inspection, full ROM, trachea midline - Chest Chest inspection: Present: normal inspection, symmetric chest wall rise - Respiratory Respiratory exam: Present: normal lung sounds bilaterally - Cardiovascular Cardiovascular exam: Present: regular rate, normal rhythm, normal heart sounds - Abdominal Exam Abdominal exam: Present: soft, Non-Tender. Absent: tenderness, distention, guarding, rebound, rigidity, trauma, Pedersen's sign, Rovsing's sign, tenderness at McBurney's Point - Extremities Exam Extremities exam: Present: normal inspection, full ROM, normal capillary refill. Absent: tenderness, pedal edema - Back Exam Back exam: Present: normal inspection, full ROM. Absent: tenderness - Neurological Exam Neurological exam: Present: alert, oriented X3, CN II-XII intact, normal gait - Skin Skin exam: Present: warm, dry, intact, normal color Course Course Narrative: Patient seen and examined the time of arrival. See history of present illness. 87-year-old male sent in by his head girls golf coach today for evaluation of persistent nausea and downtrending hemoglobin. Patient otherwise is generally healthy. He has chronic kidney insufficiency. He is denying chest pain shortness of breath headache vision changes fevers or chills. He has had persistent nausea vomiting that is limiting his ability for oral intake at home. There was concern about possible GI bleed versus stomach related symptoms. I have not been able to be seen by gastroenterology and get outpatient follow-up completed at this time. Recommendation was for the patient come over the emergency room for evaluation. Labs reviewed from the previous evaluation. Repeat labs were ordered at this time. Single air-fluid was ordered for symptomatic treatment. Patient does not have any nausea or vomiting at this time. Denies any other complaints or issues. Physical exam shows a well-appearing male is membranes are slightly dry. Oropharynx is patent trachea is midline. Lungs are clear heart is regular abdomen is soft nontender nondistended with no guarding no rigidity. Patient's pulses are intact distally. No signs of fluid overload in extremities or in the lungs. EKG CBC chemistry troponin and BNP along with chemistry panel and liver function testing and chest x-ray will be resulted at this time. Patient is otherwise clinically stable. We will continue monitor here until treatment course and disposition are determined. Type and screen was added on protocol testing will be completed. Patient denies any hematochezia or melonic stool - Reevaluation(s) Reevaluation #1: Patient's labs actually better than previous. The head girls golf coach Dr. Roldan and I reviewed the patient's presentation history and the symptoms. He also agrees this appears to be a good resolution of this time but because of the patient's persistent nausea and vomiting as well as lack of gastroenterology evaluation he recommended possible admission. Patient will be discussed with the hospitalist at this point. Chest x-ray added on. EKG and labs otherwise unremarkable. Hemoccult testing will be held at this time considering gastroenterology may do endoscopy. Aspirin will be given secondary to what appears to be a chronic troponin leak secondary to renal insufficiency. Patient is fluctuated up and down over multiple evaluations in the past. No GI bleed noted at this point Time: 11:12 Reevaluation #2: discussed the patient with the hospitalist dr. roth. No other recommendations or concerns this time. Potassium rider will be given. Patient otherwise clinically stable. Admission process to be completed. Time: 12:08 Vital Signs Temperature 97.7 F 10/05/17 09:08 Pulse Rate 60 10/05/17 09:08 Respiratory Rate 18 10/05/17 09:08 Blood Pressure 149/60 10/05/17 09:08 O2 Sat by Pulse Oximetry 96 10/05/17 09:08 Temperature 97.7 F 10/05/17 09:19 Pulse Rate 62 10/05/17 09:34 Respiratory Rate 18 10/05/17 09:34 Blood Pressure 139/59 10/05/17 09:34 O2 Sat by Pulse Oximetry 95 10/05/17 09:34 Oxygen Delivery Oxygen Delivery Room Air Medical Decision Making - MDM Narrative Medical decision making narrative: Nausea vomiting, inability to eat or drink - Medical Records Medical records reviewed: Yes I reviewed the patient's medical records. - Lab Data Lab results reviewed: Yes I reviewed the patient's lab results. Result diagrams: 10/05/17 09:22 10/05/17 09:22 Lab Results 10/05/17 10/05/17 10/05/17 Range/Units 09:22 09:22 09:22 WBC 7.9 (4.3-11.1) K/mcL RBC 3.36 L (4.19-5.50) M/mcL Hgb 10.8 L (12.9-16.9) g/dL Hct 31.5 L (37.5-50.1) % MCV 93.8 (83.0-100.0) fL MCH 32.1 (28.0-33.3) pg MCHC 34.3 (31.6-35.5) g/dL RDW 13.2 (11.5-14.5) % Plt Count 232 (140-400) K/mcL MPV 10.3 (9.4-12.4) fL Immature Gran % 0.4 (0-4) % Seg Neutrophils % 74.9 % Lymphocytes % 13.9 % Monocytes % 8.0 % Eosinophils % 2.3 % Basophils % 0.5 % Neutrophils # 5.9 (1.6-8.9) K/mcL Lymphocytes # 1.1 (0.6-4.6) K/mcL Monocytes # 0.6 (0.0-1.3) K/mcL Eosinophils # 0.2 (0.0-0.6) K/mcL Basophils # 0.0 (0.0-0.2) K/mcL PT 10.8 (9.4-12.1) Seconds INR 1.0 APTT 36.0 (26.0-36.0) Seconds Sodium 142 (136-145) mEq/L Potassium 3.3 L (3.5-5.1) mEq/L Chloride 105 (98-107) mEq/L Carbon Dioxide 27 (23-29) mEq/L BUN 39 H (8-23) mg/dL Creatinine 2.24 H (0.70-1.30) mg/dL Est GFR ( Amer) 34 L (> 60) Est GFR (Non-Af Amer) 28 L (> 60) BUN/Creatinine Ratio 17 (6-26) Glucose 150 H (70-105) mg/dL Calculated Osmolality 306 H (280-300) Lactic Acid (0.5-2.2) mmol/L Calcium 9.1 (8.6-10.3) mg/dL Total Bilirubin 0.5 (0.3-1.0) mg/dL Direct Bilirubin 0.1 (0.0-0.2) mg/dL Indirect Bilirubin 0.4 (0.0-1.2) mg/dL AST 17 (13-39) Units/L ALT 11 (7-52) Units/L Alkaline Phosphatase 80 (34-104) Units/L Serum Total Protein 6.6 (6.4-8.9) g/dL Albumin 3.7 (3.5-5.7) g/dL Globulin 2.9 (2.4-3.5) g/dL Albumin/Globulin Ratio 1.3 (1.1-2.2) Lipase 75 (11-82) Units/L Urine Color (Yellow) Urine Clarity (Clear) Urine pH (5.0-8.0) pH Units Ur Specific [place] (1.010-1.025) Urine Protein (Neg-Trace) mg/dL Urine Glucose (UA) (Normal) mg/dL Urine Ketones (Negative) mg/dL Urine Blood (Negative) Urine Nitrite (Negative) Urine Bilirubin (Negative) Urine Urobilinogen (Normal) mg/dL Ur Leukocyte Esterase (Negative) Urine Microscopic RBC (0-3) per hpf Urine Microscopic WBC (0-3) per hpf Ur Squamous Epith Cells (None-Few) per lpf Urine Bacteria (None-Few) per hpf Hyaline Casts (None-Few) per lpf Ur Culture Indicated? (NO) Blood Type Antibody Screen 10/05/17 10/05/17 10/05/17 Range/Units 09:22 09:22 10:00 WBC (4.3-11.1) K/mcL RBC (4.19-5.50) M/mcL Hgb (12.9-16.9) g/dL Hct (37.5-50.1) % MCV (83.0-100.0) fL MCH (28.0-33.3) pg MCHC (31.6-35.5) g/dL RDW (11.5-14.5) % Plt Count (140-400) K/mcL MPV (9.4-12.4) fL Immature Gran % (0-4) % Seg Neutrophils % % Lymphocytes % % Monocytes % % Eosinophils % % Basophils % % Neutrophils # (1.6-8.9) K/mcL Lymphocytes # (0.6-4.6) K/mcL Monocytes # (0.0-1.3) K/mcL Eosinophils # (0.0-0.6) K/mcL Basophils # (0.0-0.2) K/mcL PT (9.4-12.1) Seconds INR APTT (26.0-36.0) Seconds Sodium (136-145) mEq/L Potassium (3.5-5.1) mEq/L Chloride (98-107) mEq/L Carbon Dioxide (23-29) mEq/L BUN (8-23) mg/dL Creatinine (0.70-1.30) mg/dL Est GFR ( Amer) (> 60) Est GFR (Non-Af Amer) (> 60) BUN/Creatinine Ratio (6-26) Glucose (70-105) mg/dL Calculated Osmolality (280-300) Lactic Acid 0.8 (0.5-2.2) mmol/L Calcium (8.6-10.3) mg/dL Total Bilirubin (0.3-1.0) mg/dL Direct Bilirubin (0.0-0.2) mg/dL Indirect Bilirubin (0.0-1.2) mg/dL AST (13-39) Units/L ALT (7-52) Units/L Alkaline Phosphatase (34-104) Units/L Serum Total Protein (6.4-8.9) g/dL Albumin (3.5-5.7) g/dL Globulin (2.4-3.5) g/dL Albumin/Globulin Ratio (1.1-2.2) Lipase (11-82) Units/L Urine Color Yellow (Yellow) Urine Clarity Clear (Clear) Urine pH 5.5 (5.0-8.0) pH Units Ur Specific [place] 1.013 (1.010-1.025) Urine Protein 100 H (Neg-Trace) mg/dL Urine Glucose (UA) Normal (Normal) mg/dL Urine Ketones Negative (Negative) mg/dL Urine Blood Negative (Negative) Urine Nitrite Negative (Negative) Urine Bilirubin Negative (Negative) Urine Urobilinogen Normal (Normal) mg/dL Ur Leukocyte Esterase Negative (Negative) Urine Microscopic RBC 0-3 (0-3) per hpf Urine Microscopic WBC 0-3 (0-3) per hpf Ur Squamous Epith Cells Few (None-Few) per lpf Urine Bacteria None Seen (None-Few) per hpf Hyaline Casts None Seen (None-Few) per lpf Ur Culture Indicated? NO (NO) Blood Type A POSITIVE Antibody Screen NEGATIVE - Radiology Data Radiology results reviewed: Yes I reviewed the patient's radiology results. - EKG Data EKG #1 EKG attestation: Yes I reviewed and interpreted this EKG. EKG results narrative: EKG shows electric atrial and ventricularly paced rhythm. No acute signs of ST segment elevation or abnormality. This is chronic findings on EKG compared from 09/28/17
[2017-10-05] MEDS ORDERED: 0.9 % Sodium Chloride 1,000 ML ONE (10:50)
[2017-10-05] MEDS: 0.9 % Sodium Chloride 1,000 ML IVC SCH ×2 (10:56→15:59)
[2017-10-05] MEDS ORDERED: Aspirin 81 MG TAB.CHEW PO STA (11:10)
[2017-10-05] MEDS ORDERED: Potassium Chloride 20 MEQ, Lidocaine 1% 2 ML in D5% in Water 250 ML IVPB ONE (12:07)
--- NOTE | 2017-10-05 12:31 | Internal Med History&Physical ---
Date of Encounter: 10/05/17 Time of Encounter: 12:27 Internal Medicine - H&P: HPI Chief complaint: persistent nausea and vommitting Admitted From: Emergency Dept Plans for Post Hospital Care: Home History of present illness: Mr. Avendaño is a 87 year old male Patient with history of congestive heart failure, CAD, had a history of a CABG, diabetes, GERD, high cholesterol, hypertension, CK D, pacemaker and ICD. Patient has been in hospital now admitted about 4 times in the recent past most recent admission patient discharged September 30 and had persistent nausea and vomiting and epigastric pain recent CT of the abdomen and pelvis was unremarkable patient was being followed by nephrology due to CK D patient was then sent from nephrology clinic today for more labs to be drawn creatinine actually better also was concerned about possible GI bleed hemoglobin was stable patient been admitted because he had had persistent nausea and occasional vomiting for further GI workup. He was to have gi evaluation op but continued to require Zofran every 4 hours for persistent nausea. Past Med Surg Social Fam HX - Past Medical History Medical history: CHF, coronary artery disease, diabetes, GERD, hyperlipidemia, hypertension, kidney stones, myocardial infarction, renal disease, thyroid disease Additional medical history: anemia, peptic ulcer, sleep apnea, bradycardia, gout Psychiatric history: depression - Past Surgical History Surgical History: cholecystectomy, coronary bypass (CABG), pacemaker/AICD Additional surgical history: 2 heart stents, sinus surgery - Social History Smoking Status: Former smoker Smokeless Tobacco Status: No Alcohol use: none Drug use: none - Family History Mother Living Status: Hx Family Cardiac Disorders: Yes Father Living Status: Hx Family Cardiac Disorders: Yes Sister Living Status: Hx Family Cardiac Disorders: Yes (cardiac dx) Internal Medicine - H&P: Meds Amlodipine Besylate 10 mg PO DAILY 08/20/17 [History] Aspirin [Lo-Dose Aspirin EC] 81 mg PO DAILY 08/20/17 [History] Atenolol [Tenormin] 50 mg PO DAILY 08/20/17 [History] Atorvastatin Calcium [Lipitor] 80 mg PO HS 08/20/17 [History] Calcitriol [Rocaltrol] 0.25 mcg PO DAILY 08/20/17 [History] Cetirizine HCl [All Day Allergy] 10 mg PO DAILY 08/20/17 [History] Clopidogrel [Plavix] 75 mg PO DAILY 08/20/17 [History] Febuxostat [Uloric] 40 mg PO DAILY 08/20/17 [History] Gabapentin [Neurontin] 300 mg PO QAM 08/20/17 [History] Gabapentin [Neurontin] 600 mg PO HS 08/20/17 [History] Ipratropium [place] 1 spr NS BID 08/20/17 [History] Levothyroxine [Synthroid] 50 mcg PO 0630 08/20/17 [History] Mirabegron [Myrbetriq] 50 mg PO DAILY 08/20/17 [History] [place]-3/Dha/Epa/Fish Oil [Fish Oil 500 mg Softgel] 1 cap PO DAILY 08/20/17 [ History] Isosorbide MONOnitrate (24 HR) [Imdur] 30 mg PO DAILY #30 tab.er.24h 08/22/17 [ Rx] Nitroglycerin [Nitrostat] 0.4 mg SL Q5MIN PRN #30 tab.subl 08/22/17 [Rx] Pantoprazole Sodium 40 mg PO DAILY #30 tablet.dr 08/22/17 [Rx] Ondansetron ODT [Zofran ODT] 4 mg SL Q4HR PRN #14 tab.rapdis 09/25/17 [Rx] Acetaminophen [Tylenol] 650 mg PO Q6HR PRN tablet 09/30/17 [Rx] Docusate [Colace] 100 mg PO DAILY PRN capsule 09/30/17 [Rx] Multivit/Ca/Min/Fe/FA [Thera M Plus] 1 tab PO DAILY tablet 09/30/17 [Rx] hydrALAZINE [HydrALAZINE] 25 mg PO Q8HR 30 Days #90 tablet 09/30/17 [Rx] hydroCHLOROthiazide [Hydrochlorothiazide] 25 mg PO DAILY 10/05/17 [History] 3 Allergy/AdvReac Type Severity Reaction Status Date / Time tape AdvReac skin Uncoded 10/05/17 09:11 breakdown All Systems PM: A 10-system review of systems was performed and is negative for pertinent findings except as documented above in the HPI. - Constitutional Constitutional: no chills, no fever(s), no night sweats - EENT Nose, mouth and throat: no dysphagia, no nasal discharge, no neck pain, no sore throat - Cardiovascular Cardiovascular ROS IM: no chest pain, no diaphoresis, no dyspnea, no lightheadedness, no palpitations, no syncope - Respiratory Respiratory: no cough, no dyspnea, no wheezing, no excessive phlegm production - Gastrointestinal Gastrointestinal: abdominal pain, nausea, vomiting - Musculoskeletal Musculoskeletal ROS IM: no numbness, no tingling - Integumentary Integumentary IM: no rash, no unusual bruising - Neurological Neurological ROS: no confusion, no convulsions, no focal weakness, no numbness, no tingling, no tremor(s) - Hematologic/Lymphatic Hematologic/Lymphatic: no easy bruising - Constitutional Vitals: Temp Pulse Resp BP Pulse Ox 97.7 F 59 20 145/60 93 10/05/17 09:19 10/05/17 12:20 10/05/17 12:20 10/05/17 12:20 10/05/17 12:20 - Head Head exam: Present: atraumatic, normocephalic - Eye Eye exam: Present: PERRL, conjuntiva pink, sclera anicteric Pupils: Present: PERRL - Neck Neck exam general surgery: Present: supple, trachea midline. Absent: lymphadenopathy - Respiratory Respiratory exam: Present: CTAB. Absent: accessory muscle use, rales, rhonchi, wheezes - Cardiovascular Cardiovascular exam: Present: RRR, +S1, +S2. Absent: diastolic murmur, gallop, rubs, systolic murmur - GI/Abdominal GI/Abdominal exam: Present: normal bowel sounds, soft, no peritoneal signs. Absent: distended, tenderness - Extremities Exam Extremities exam: Present: warm, radial pulses palpable and symmetrical. Absent : calf tenderness, cyanotic, pedal edema - Neurological Exam Neurological exam: Present: CN II-XII intact, oriented X3, no focal deficits. Absent: pronater drift, facial droop, speech deficit - Skin Skin exam: Present: dry, intact Internal Med - H&P Results - Labs CBC & Chem 7: 10/05/17 09:22 10/05/17 09:22 Labs: Short CBC 10/05/17 Range/Units 09:22 WBC 7.9 (4.3-11.1) K/mcL Hgb 10.8 L (12.9-16.9) g/dL Hct 31.5 L (37.5-50.1) % Plt Count 232 (140-400) K/mcL Neutrophils # 5.9 (1.6-8.9) K/mcL BMP 10/05/17 09:22 Sodium 142 Potassium 3.3 L Chloride 105 Carbon Dioxide 27 BUN 39 H Creatinine 2.24 H Glucose 150 H Calcium 9.1 Cardiac Enzymes 10/05/17 Range/Units 09:22 Troponin I 0.04 H* (< 0.04) ng/mL Liver Function 10/05/17 Range/Units 09:22 Total Bilirubin 0.5 (0.3-1.0) mg/dL Direct Bilirubin 0.1 (0.0-0.2) mg/dL AST 17 (13-39) Units/L ALT 11 (7-52) Units/L Alkaline Phosphatase 80 (34-104) Units/L Albumin 3.7 (3.5-5.7) g/dL Urine 10/05/17 Range/Units 10:00 Urine Color Yellow (Yellow) Urine Clarity Clear (Clear) Urine pH 5.5 (5.0-8.0) pH Units Ur Specific [place] 1.013 (1.010-1.025) Urine Protein 100 H (Neg-Trace) mg/dL Urine Glucose (UA) Normal (Normal) mg/dL - Impressions ITS Impressions Chest X-Ray 10/05/17 11:10 IMPRESSION: Mild bibasilar and right mid lung atelectasis. No focal consolidation. D/ / Kristina Toney MD / Kristina Toney MD Interpreting Provider: Kristina Toney MD - Assessment and plan (1) Nausea & vomiting Current Visit: Yes Status: Acute Assessment and plan: Acute on chronic persistent nausea with occasional vomiting will consult GI for further evaluation and continue Phenergan IV with gentle hydration Qualifiers: Vomiting type: unspecified Vomiting Intractability: unspecified Qualified Code(s): R11.2 - Nausea with vomiting, unspecified (2) Acute kidney injury superimposed on chronic kidney disease Current Visit: No Status: Acute Assessment and plan: Patient has chronic kidney injury creatinine is stable at this point and slightly better (3) Anemia Current Visit: No Status: Chronic Assessment and plan: Chronic and stable Qualifiers: Anemia type: unspecified type Qualified Code(s): D64.9 - Anemia, unspecified (4) Diabetes mellitus Current Visit: No Status: Chronic Assessment and plan: Chronic resume home medication and place on sliding scale Qualifiers: Diabetes mellitus type: type 2 Diabetes mellitus retirement insulin use: without retirement use Diabetes mellitus complication status: with kidney complications Diabetes mellitus complication detail: with chronic kidney disease Chronic kidney disease stage: stage 3 (moderate) Qualified Code(s): E11.22 - Type 2 diabetes mellitus with diabetic chronic kidney disease; N18.3 - Chronic kidney disease, stage 3 (moderate) (5) Hypertension Current Visit: No Status: Chronic Assessment and plan: Chronic and stable we will resume home medication Qualifiers: Hypertension type: essential hypertension Qualified Code(s): I10 - Essential (primary) hypertension - Time Spent With Patient Total time spent is greater than 50% in coordination of care (as documented) at patient's floor/unit and/or counseling patient:
[2017-10-05] MEDS ORDERED: Naloxone 0.4 MG/ML INJ IVP PRN (12:36)
[2017-10-05] MEDS ORDERED: Acetaminophen 325 MG TABLET PO PRN ×2 (12:36→12:42)
[2017-10-05] MEDS ORDERED: *HR* Promethazine 25 MG/ML VIAL IVP PRN (12:44)
[2017-10-05] MEDS: hydrALAZINE 25 MG TABLET PO SCH ×2 (15:59→20:47)
--- NOTE | 2017-10-05 16:31 | Electrocardiograph Report ---
[place] [id number] Test Date: 2017-10-05 Pat Name: [facility] Department: [id number] Room: 3A24 Gender: M [employer]der: : 1930 Requested By: Keith Escobedo Order Number: [id number] Reading MD: Blu Recinos Measurements Intervals [place] Rate: 62 P: 0 OK: 213 QRS: -73 QRSD: 182 T: 164 QT: 514 QTc: 519 Interpretive Statements ELECTRONIC ATRIAL PACEMAKER ELECTRONIC VENTRICULAR PACEMAKER ABNORMAL RHYTHM ECG Electronically Signed On 10-05-2017 16:29:19 EDT by Blu Recinos
[2017-10-05] MEDS: Gabapentin 300 MG CAPSULE PO SCH (20:49)
[2017-10-05] MEDS ORDERED: Gabapentin 300 MG CAPSULE PO SCH (21:00)
[2017-10-06] MEDS: (Ipratropium Bromide [Ipratropium Bromide] 1 SPR) NS SCH ×2 (00:21→08:02)
[2017-10-06] MEDS: 0.9 % Sodium Chloride 1,000 ML IVC SCH ×5 (00:22→13:35)
[2017-10-06 01:21] LABS: Hematocrit 27.4 % (37.5-50.1); Mean Corpuscular HGB Conc 33.6 g/dL (31.6-35.5); Mean Corpuscular Hemoglobin 31.6 pg (28.0-33.3); Mean Corpuscular Volume 94.2 fL (83.0-100.0); Mean Platelet Volume 10.5 fL (9.4-12.4); Platelet Count 200 K/mcL (140-400); Red Blood Count 2.91 M/mcL (4.19-5.50); Red Cell Distribution Width 13.1 % (11.5-14.5)
[2017-10-06 01:25] LABS: Hemoglobin 9.2 g/dL (12.9-16.9)
[2017-10-06 01:43] LABS: Albumin 3.1 g/dL (3.5-5.7); Albumin/Globulin Ratio 1.2 (1.1-2.2); Bilirubin,Total 0.3 mg/dL (0.3-1.0); Calcium 8.5 mg/dL (8.6-10.3); Globulin 2.5 g/dL (2.4-3.5); Magnesium 1.5 mg/dL (1.6-2.6); Potassium 4.2 mEq/L (3.5-5.1); Total Protein 5.6 g/dL (6.4-8.9)
[2017-10-06] MEDS: Gabapentin 300 MG CAPSULE PO SCH ×3 (06:03→20:12)
[2017-10-06] MEDS: Isosorbide MONOnitrate (24 HR) 30 MG TAB.ER.24H PO SCH (08:02)
[2017-10-06] MEDS: amLODIPine 5 MG TABLET PO SCH (08:02)
[2017-10-06] MEDS: Loratadine 10 MG TABLET PO SCH (08:02)
[2017-10-06] MEDS: hydrALAZINE 25 MG TABLET PO SCH ×3 (08:02→20:12)
[2017-10-06] MEDS: Multivit/Ca/Min/Fe/FA 1 TAB TABLET PO SCH (08:03)
[2017-10-06] MEDS ORDERED: NON-FORMULARY MEDICATION 1 EACH EACH (Omega-3/Dha/Epa/Fish Oil [Fish Oil 500 Mg Softgel] 1 PO SCH (09:00)
[2017-10-06] MEDS ORDERED: Aspirin Enteric Coated 81 MG Tablet PO SCH (09:00)
[2017-10-06] MEDS ORDERED: (Febuxostat [Uloric] 40 MG) PO SCH (09:00)
[2017-10-06] MEDS ORDERED: (Mirabegron [Myrbetriq] 50 MG) PO SCH (09:00)
--- NOTE | 2017-10-06 12:32 | Gastroenterology Consult Note ---
<Bola Johnson - Last Filed: 10/06/17 12:30> Date of Encounter: 10/06/17 Time of Encounter: 11:30 - Assessment and plan (1) Nausea & vomiting Current Visit: Yes Status: Acute Assessment and plan: Continue IV fluids and anti-emetics. Plan for EGD tomorrow to r/o esophagitis, gastritis, duodenitis, PUD, MW tear, or AVM. Keep NPO at midnight. If EGD negative, consider gastric emptying study. Qualifiers: Vomiting type: unspecified Vomiting Intractability: unspecified Qualified Code(s): R11.2 - Nausea with vomiting, unspecified (2) Anemia Current Visit: No Status: Chronic Assessment and plan: Continue to monitor CBC and transfuse PRBC as needed. Plan for EGD tomorrow. Qualifiers: Anemia type: unspecified type Qualified Code(s): D64.9 - Anemia, unspecified (3) Diabetes mellitus Current Visit: No Status: Chronic Qualifiers: Diabetes mellitus type: type 2 Diabetes mellitus termination clerk insulin use: without termination clerk use Diabetes mellitus complication status: with kidney complications Diabetes mellitus complication detail: with chronic kidney disease Chronic kidney disease stage: stage 3 (moderate) Qualified Code(s): E11.22 - Type 2 diabetes mellitus with diabetic chronic kidney disease; N18.3 - Chronic kidney disease, stage 3 (moderate) - Time Spent With Patient Total time spent is greater than 50% in coordination of care (as documented) at patient's floor/unit and/or counseling patient: GI History of Present Illness - Data of Consult Patient: new to practice Consult date: 10/06/17 Requesting Physician: Marc Fernandez - Consult Narrative Reason for consult: Nausea, possible GI bleed History of present illness: Mr. Avendaño is a 87 year old male with PMHx of CHF, CAD, DM, GERD, HLD, HTN, [place] , CKD, pacemaker and ICD who was sent to the ED from Nephrology clinic for persistent nausea and downtrending hemoglobin. Baseline Hgb 10-11 and was 10.8 on admission, this AM Hgb 9.2. Hgb was 11.4 on 09/28/2017. He denies fever, chills, chest pain, shortness of breath. He has had persistent nausea vomiting that is limiting his ability for oral intake at home. There was concern of possible GI bleed, but Hgb has been stable. We were consulted to evaluate his nausea and vomiting and possible GI bleed. Procedures: Colonoscopy 10/07/2011 Dr. Juares: Internal hemorrhoids, repeat 7 years. EGD 10/07/2011 Dr. Juaers: Bilious gastric fluid. NSAIDs: ASA Anticoagulation: Plavix Past Med Surg Social Fam HX - Past Medical History Medical history: CHF, coronary artery disease, diabetes, GERD, hyperlipidemia, hypertension, kidney stones, myocardial infarction, renal disease, thyroid disease Additional medical history: anemia, peptic ulcer, sleep apnea, bradycardia, gout Psychiatric history: depression - Past Surgical History Surgical History: cholecystectomy, coronary bypass (CABG), pacemaker/AICD Additional surgical history: 2 heart stents, sinus surgery - Social History Smoking Status: Former smoker Smokeless Tobacco Status: No Alcohol use: none Drug use: none - Family History Mother Living Status: Hx Family Cardiac Disorders: Yes Father Living Status: Hx Family Cardiac Disorders: Yes Sister Living Status: Hx Family Cardiac Disorders: Yes (cardiac dx) Brother Living Status: Hx Family Cancer: Yes (colon) - Gastrointestinal Gastrointestinal: Present: as per HPI - Constitutional Constitutional: as per HPI - EENT Eyes: as per HPI Ears: Present: as per HPI Nose, mouth and throat: Present: as per HPI - Cardiovascular Cardiovascular ROS: Present: as per HPI - Respiratory Respiratory IM: Present: as per HPI - Genitourinary Genitourinary: Absent: change in color, Urinary frequency - Neurological ROS Neurological GI: Present: as per HPI - Hematologic/Lymphatic Hematologic/Lymphatic pediatric: Present: as per HPI - Musculoskeletal Musculoskeletal ROS GI: Present: as per HPI - Integumentary Integumentary GI: Present: as per HPI - Psychiatric ROS Psychiatric GI: Present: as per HPI - Endocrine Endocrine IM: Present: as per HPI - Constitutional Vitals: Temp Pulse Resp BP Pulse Ox 99.0 F 59 16 160/55 93 10/06/17 10:02 10/06/17 10:02 10/06/17 10:02 10/06/17 10:02 10/06/17 10:02 General appearance: Present: cooperative, A&O X 3, no acute distress, answers questions appropriately - Head Head exam: Present: atraumatic, normocephalic - Eye Eye exam: Present: normal appearance, sclera anicteric - ENT ENT exam: Present: mucous membranes dry - Neck Neck exam general surgery: Present: normal inspection, trachea midline - Respiratory Respiratory exam: Present: CTAB. Absent: rales, rhonchi, wheezes - Cardiovascular Cardiovascular exam: Present: RRR, +S1, +S2 - GI/Abdominal GI/Abdominal exam: Present: soft, no peritoneal signs. Absent: distended, firm , guarding, tenderness - Rectal Rectal exam: Present: deferred - Extremities Exam Extremities exam: Present: warm - Neurological Exam Neurological exam: Present: no focal deficits - Psychiatric Psychiatric exam: Present: normal affect, normal mood - Skin Skin exam: Present: dry, intact, normal color, warm Results - Labs CBC & Chem 7: 10/06/17 00:58 10/06/17 00:58 Labs: Last Result Calcium 8.5 mg/dL (8.6-10.3) L 10/06/17 00:58 Troponin I 0.03 ng/mL (< 0.04) 10/06/17 00:58 Entire Visit Hgb 9.2 g/dL (12.9-16.9) L D 10/06/17 00:58 Hct 27.4 % (37.5-50.1) L 10/06/17 00:58 PT 10.8 Seconds (9.4-12.1) 10/05/17 09:22 Total Bilirubin 0.3 mg/dL (0.3-1.0) 10/06/17 00:58 AST 15 Units/L (13-39) 10/06/17 00:58 ALT 10 Units/L (7-52) 10/06/17 00:58 Lipase 75 Units/L (11-82) 10/05/17 09:22 - ABG ABG results: PT/INR, D-dimer PT 10.8 Seconds (9.4-12.1) 10/05/17 09:22 Consult Discharge Plan - Plan Referrals: Avel Linares MD [Primary Care Provider] - <Ros Loza - Last Filed: 10/06/17 17:36> Date of Encounter: 10/06/17 Time of Encounter: 13:00 - Time Spent With Patient Total time spent is greater than 50% in coordination of care (as documented) at patient's floor/unit and/or counseling patient: GI History of Present Illness - Data of Consult Requesting Physician: Marc Fernandez - Consult Narrative History of present illness: Mr. Avendaño is a 87 year old male - Constitutional Vitals: Temp Pulse Resp BP Pulse Ox 98.6 F 60 14 158/56 94 10/06/17 15:12 10/06/17 15:12 10/06/17 15:12 10/06/17 15:12 10/06/17 15:12 Results - Labs CBC & Chem 7: 10/06/17 00:58 10/06/17 00:58 Labs: Last Result Calcium 8.5 mg/dL (8.6-10.3) L 10/06/17 00:58 Troponin I 0.03 ng/mL (< 0.04) 10/06/17 00:58 Entire Visit Hgb 9.2 g/dL (12.9-16.9) L D 10/06/17 00:58 Hct 27.4 % (37.5-50.1) L 10/06/17 00:58 PT 10.8 Seconds (9.4-12.1) 10/05/17 09:22 Total Bilirubin 0.3 mg/dL (0.3-1.0) 10/06/17 00:58 AST 15 Units/L (13-39) 10/06/17 00:58 ALT 10 Units/L (7-52) 10/06/17 00:58 Lipase 75 Units/L (11-82) 10/05/17 09:22 - ABG ABG results: PT/INR, D-dimer PT 10.8 Seconds (9.4-12.1) 10/05/17 09:22 - Attending Attestation I have personally performed a face to face evaluation on this patient. I have reviewed and agree with the care plan. History and Exam by me shows: Pt seen. No abdominal pain on examination abdomen is benign. Assessment: Patient with recurrent nausea and vomiting. Recommendation: EGD to rule out gastric causes for his symptoms
--- NOTE | 2017-10-06 13:47 | Nephrology Consult Note ---
<TinacieraRukhsana felicianoFang B - Last Filed: 10/06/17 13:40> Date of Encounter: 10/06/17 Time of Encounter: 13:40 Assessment and Plan (1) Acute kidney injury superimposed on chronic kidney disease Current Visit: No Status: Acute Scr was 2.24 yesterday, improved to 1.93 with IV hydration. Avoid nephrotoxins and renal dose all medications. Strict I/O. (2) Abdominal pain Current Visit: Yes Status: Acute GI consult. Qualifiers: Abdominal location: unspecified location Qualified Code(s): R10.9 - Unspecified abdominal pain (3) Nausea & vomiting Current Visit: Yes Status: Acute NPO now, so appears to be better. GI consult. Qualifiers: Vomiting type: unspecified Vomiting Intractability: unspecified Qualified Code(s): R11.2 - Nausea with vomiting, unspecified History of Present Illness - Reason for Consult Consult date: 10/06/17 Chronic Kidney Disease - Chief Complaint nausea/vomiting, lob hgb - History of Present Illness Mr. Avendaño is an 87 year old male that is a patient of Dr. Moya's in the office. He is CKD IV. He has had recent nausea/vomiting at home and was sent by Dr. Moya for low Hgb and to monitor renal function. PMH: CHF, coronary artery disease, diabetes, GERD, hyperlipidemia, hypertension, PR and thyroid disease. Denies hematemesis or Per red blood. GI on board and patient is NPO for scopes this afternoon. Will continue to monitor kidney function this stay. Past Med Surg Social Fam HX - Past Medical History Medical history: CHF, coronary artery disease, diabetes, GERD, hyperlipidemia, hypertension, kidney stones, myocardial infarction, renal disease, thyroid disease Additional medical history: anemia, peptic ulcer, sleep apnea, bradycardia, gout Psychiatric history: depression - Past Surgical History Surgical History: cholecystectomy, coronary bypass (CABG), pacemaker/AICD Additional surgical history: 2 heart stents, sinus surgery - Social History Smoking Status: Former smoker Smokeless Tobacco Status: No Alcohol use: none Drug use: none - Family History Mother Living Status: Hx Family Cardiac Disorders: Yes Father Living Status: Hx Family Cardiac Disorders: Yes Sister Living Status: Hx Family Cardiac Disorders: Yes (cardiac dx) Brother Living Status: Hx Family Cancer: Yes (colon) Medications and Allergies Amlodipine Besylate 10 mg PO DAILY 08/20/17 [History] Aspirin [Lo-Dose Aspirin EC] 81 mg PO DAILY 08/20/17 [History] Atenolol [Tenormin] 50 mg PO DAILY 08/20/17 [History] Atorvastatin Calcium [Lipitor] 80 mg PO HS 08/20/17 [History] Calcitriol [Rocaltrol] 0.25 mcg PO DAILY 08/20/17 [History] Cetirizine HCl [All Day Allergy] 10 mg PO DAILY 08/20/17 [History] Clopidogrel [Plavix] 75 mg PO DAILY 08/20/17 [History] Febuxostat [Uloric] 40 mg PO DAILY 08/20/17 [History] Gabapentin [Neurontin] 300 mg PO QAM 08/20/17 [History] Gabapentin [Neurontin] 600 mg PO HS 08/20/17 [History] Ipratropium [place] 1 spr NS BID 08/20/17 [History] Levothyroxine [Synthroid] 50 mcg PO 0630 08/20/17 [History] Mirabegron [Myrbetriq] 50 mg PO DAILY 08/20/17 [History] [place]-3/Dha/Epa/Fish Oil [Fish Oil 500 mg Softgel] 1 cap PO DAILY 08/20/17 [ History] Isosorbide MONOnitrate (24 HR) [Imdur] 30 mg PO DAILY #30 tab.er.24h 08/22/17 [ Rx] Nitroglycerin [Nitrostat] 0.4 mg SL Q5MIN PRN #30 tab.subl 08/22/17 [Rx] Pantoprazole Sodium 40 mg PO DAILY #30 tablet.dr 08/22/17 [Rx] Ondansetron ODT [Zofran ODT] 4 mg SL Q4HR PRN #14 tab.rapdis 09/25/17 [Rx] Acetaminophen [Tylenol] 650 mg PO Q6HR PRN tablet 09/30/17 [Rx] Docusate [Colace] 100 mg PO DAILY PRN capsule 09/30/17 [Rx] Multivit/Ca/Min/Fe/FA [Thera M Plus] 1 tab PO DAILY tablet 09/30/17 [Rx] hydrALAZINE [HydrALAZINE] 25 mg PO Q8HR 30 Days #90 tablet 09/30/17 [Rx] hydroCHLOROthiazide [Hydrochlorothiazide] 25 mg PO DAILY 10/05/17 [History] 3 Allergy/AdvReac Type Severity Reaction Status Date / Time tape AdvReac skin Uncoded 10/05/17 09:11 breakdown Review of Systems Constitutional: no chills, no fatigue, no fever(s) Cardiovascular: no chest pain, no dyspnea Gastrointestinal: diarrhea, nausea, no abdominal pain, no hematemesis, no melena Exam - Vital Signs Vital signs: Initial Vital Signs Temp Pulse Resp BP Pulse Ox 97.7 F 60 18 149/60 96 10/05/17 09:08 10/05/17 09:08 10/05/17 09:08 10/05/17 09:08 10/05/17 09:08 Vital Signs - Last 8 Hours Temp Pulse Resp BP Pulse Ox 10/06/17 10:02 99.0 F 59 16 160/55 93 10/06/17 06:29 98.2 F 59 16 156/58 93 Intake and Output 10/05/17 10/06/17 10/06/17 23:59 07:59 15:59 Intake Total 120 / 120 1000 / 1000 1000 / 1000 Output Total 300 / 300 450 / 450 175 / 175 Balance -180 / -180 550 / 550 825 / 825 Intake: IV Fluids 1000 / 1000 1000 / 1000 0.9 % Sodium Chloride 1,000 ML 1000 / 1000 1000 / 1000 @ 75 mls/hr IVC .[id number] MARYANN Rx #:[id number] Oral 120 / 120 0 / 0 Output: Urine 300 / 300 450 / 450 175 / 175 Other: Meal Dinner npo breakfast Percent of Meal Consumed 75% Weight 70.6 kg Blood Glucose* 153 109 Patient Weight 10/06/17 23:59 Weight 70.6 kg - General Appearance General appearance: well-developed, well-nourished, appears started age EENT: ATNC, hearing intact, vision intact Neck: supple Respiratory: clear Cardiology: no edema, normal S1, normal S2 Gastrointestinal: normoactive bowel sounds, no tenderness, no guarding Integumentary: no rash, warm and dry Neurologic: alert and oriented x3 Psychiatric: mood/affect appropriate, cooperative Results - Lab Results 10/06/17 00:58 10/06/17 00:58 Most recent lab results Calcium 8.5 mg/dL (8.6-10.3) L 10/06/17 00:58 Magnesium 1.5 mg/dL (1.6-2.6) L 10/06/17 00:58 Consult Discharge Plan - Plan Referrals: Avel Linares MD [Primary Care Provider] - <James Caldera - Last Filed: 10/08/17 07:00> Date of Encounter: 10/06/17 Exam - Vital Signs Vital signs: Initial Vital Signs Temp Pulse Resp BP Pulse Ox 97.7 F 60 18 149/60 96 10/05/17 09:08 10/05/17 09:08 10/05/17 09:08 10/05/17 09:08 10/05/17 09:08 Vital Signs - Last 8 Hours Temp Pulse Resp BP Pulse Ox 10/08/17 06:04 99.0 F 60 31 150/67 92 10/08/17 04:04 99.6 F 60 29 150/75 92 10/08/17 03:55 26 93 10/08/17 02:25 18 88 10/08/17 02:14 98.3 F 60 20 155/70 97 10/07/17 23:26 99.2 F 60 18 155/62 91 Intake and Output 10/07/17 10/07/17 10/08/17 15:59 23:59 07:59 Intake Total 795 / 795 124 / 124 62.8 / 62.8 Output Total 300 / 300 50 / 50 0 / 0 Balance 495 / 495 74 / 74 62.8 / 62.8 Intake: IV Fluids 675 / 675 124 / 124 62.8 / 62.8 0.9 % Sodium Chloride 1,000 ML 675 / 675 @ 75 mls/hr IVC .[id number] MARYANN Rx #:[id number] Heparin 25,000 UNIT/500 ML D5W 124 / 124 62.8 / 62.8 25,000 unit In 500 ml @ 12 UNIT /KG/HR 16.92 mls/hr IVC .Q24H MARYANN Rx#:[id number] Oral 120 / 120 0 / 0 0 / 0 Output: Urine 300 / 300 50 / 50 0 / 0 Other: Meal NPO Percent of Meal Consumed 0% # Voids 1 # Bowel Movements 0 Weight 70.5 kg Blood Glucose* 140 130 Patient Weight 10/08/17 23:59 Weight 70.5 kg Results - Lab Results 10/08/17 02:30 10/07/17 09:47 Most recent lab results ABG pH 7.38 pH Units (7.32-7.45) 10/07/17 10:36 ABG pCO2 44 mmHg (35-45) 10/07/17 10:36 ABG pO2 64 mmHg (85-104) L 10/07/17 10:36 ABG HCO3 26 mEq/L (21-27) 10/07/17 10:36 ABG O2 Saturation 92 % (95-98) L 10/07/17 10:36 Calcium 8.1 mg/dL (8.6-10.3) L 10/07/17 09:47 Magnesium 1.5 mg/dL (1.6-2.6) L 10/06/17 00:58 - Attending Attestation I examined this patient and my medical decision-making was reviewed with the Resident Physician/DISTRIBUTION TECH. I agree with the documented findings, disposition and treatment plan as described except to the extent set forth below. Pt seen and examined, sent from our office by Dr Moya on concerns for GI bleed as well as rising SCr. SCr actually noted improving today at 2.24 from 2.86 and hgb fairly stable at 10.8. Will monitor serial hgb. GI eval. No acute indication for PROPERTY ASSISTANT at this time. Avoid nephrotoxins if possible. Will follow with you.
--- NOTE | 2017-10-06 17:43 | Internal Med Progress Note ---
Date of Encounter: 10/06/17 Time of Encounter: 11:00 - Assessment and plan (1) Nausea & vomiting Current Visit: Yes Status: Acute Assessment and plan: GI has been consulted for an EGD on 10/07/17 Qualifiers: Vomiting type: unspecified Vomiting Intractability: unspecified Qualified Code(s): R11.2 - Nausea with vomiting, unspecified (2) CAD (coronary artery disease) Current Visit: Yes Status: Acute Assessment and plan: Stable; will continue home medications Qualifiers: Associated angina: without angina Qualified Code(s): I25.10 - Atherosclerotic heart disease of [place] coronary artery without angina pectoris (3) Ischemic cardiomyopathy Current Visit: Yes Status: Acute Assessment and plan: Stable; continue home medications (4) Anemia Current Visit: No Status: Chronic Assessment and plan: Patient with chronic anemia and hemoglobin slightly below baseline at 9.2 today EGD scheduled per GI on 10/07/17 Qualifiers: Anemia type: unspecified type Qualified Code(s): D64.9 - Anemia, unspecified (5) Hypertension Current Visit: No Status: Chronic Assessment and plan: Blood pressure slightly elevated; continue home medications Qualifiers: Hypertension type: essential hypertension Qualified Code(s): I10 - Essential (primary) hypertension - Time Spent With Patient Total time spent is greater than 50% in coordination of care (as documented) at patient's floor/unit and/or counseling patient: - Subjective Interval history: Patient with nausea and vomiting this morning GI consulted with plans for EGD on 10/07/17 - Constitutional Vitals: Temp Pulse Resp BP Pulse Ox 98.6 F 60 14 158/56 94 10/06/17 15:12 10/06/17 15:12 10/06/17 15:12 10/06/17 15:12 10/06/17 15:12 General appearance: Present: no acute distress - Cardiovascular Cardiovascular exam: Present: RRR, +S1, +S2. Absent: diastolic murmur, gallop, rubs, systolic murmur Internal Medicine: Result - Labs CBC & Chem 7: 10/06/17 00:58 10/06/17 00:58 Labs: Short CBC 10/06/17 Range/Units 00:58 WBC 7.3 (4.3-11.1) K/mcL Hgb 9.2 L D (12.9-16.9) g/dL Hct 27.4 L (37.5-50.1) % Plt Count 200 (140-400) K/mcL BMP 10/06/17 00:58 Sodium 144 Potassium 4.2 D Chloride 110 H Carbon Dioxide 29 BUN 36 H Creatinine 1.93 H Glucose 99 Calcium 8.5 L Cardiac Enzymes 10/05/17 10/06/17 Range/Units 21:12 00:58 Troponin I 0.03 0.03 (< 0.04) ng/mL Liver Function 10/06/17 Range/Units 00:58 Total Bilirubin 0.3 (0.3-1.0) mg/dL AST 15 (13-39) Units/L ALT 10 (7-52) Units/L Alkaline Phosphatase 71 (34-104) Units/L Albumin 3.1 L (3.5-5.7) g/dL - ABG Interpretation ABG results: PT/INR, D-dimer PT 10.8 Seconds (9.4-12.1) 10/05/17 09:22 Consult Discharge Plan - Plan Referrals: Avel Linares MD [Primary Care Provider] -
[2017-10-07] MEDS: 0.9 % Sodium Chloride 1,000 ML IVC SCH (04:06)
[2017-10-07] MEDS: Multivit/Ca/Min/Fe/FA 1 TAB TABLET PO SCH (08:50)
[2017-10-07] MEDS: Loratadine 10 MG TABLET PO SCH (08:50)
[2017-10-07] MEDS: hydrALAZINE 25 MG TABLET PO SCH ×3 (08:50→20:32)
[2017-10-07] MEDS: Isosorbide MONOnitrate (24 HR) 30 MG TAB.ER.24H PO SCH (08:50)
[2017-10-07] MEDS: amLODIPine 5 MG TABLET PO SCH (08:51)
[2017-10-07] MEDS: Gabapentin 300 MG CAPSULE PO SCH ×2 (08:51→20:32)
[2017-10-07 10:05] LABS: Basophils % 0.4 %; Eosinophils % 0.1 %; Hematocrit 28.7 % (37.5-50.1); Hemoglobin 9.4 g/dL (12.9-16.9); Immature Granulocytes % 0.5 % (0-4); Lymphocytes # 1.2 K/mcL (0.6-4.6); Lymphocytes % 12.8 %; Mean Corpuscular HGB Conc 32.8 g/dL (31.6-35.5); Mean Corpuscular Hemoglobin 31.3 pg (28.0-33.3); Mean Corpuscular Volume 95.7 fL (83.0-100.0); Mean Platelet Volume 10.5 fL (9.4-12.4); Monocytes # 0.7 K/mcL (0.0-1.3); Monocytes % 7.2 %; Neutrophils # 7.5 K/mcL (1.6-8.9); Platelet Count 232 K/mcL (140-400); Red Cell Distribution Width 13.4 % (11.5-14.5)
[2017-10-07 10:24] LABS: Calcium 8.1 mg/dL (8.6-10.3); Potassium 4.1 mEq/L (3.5-5.1)
[2017-10-07] MEDS ORDERED: Furosemide 40 MG/4 ML VIAL IVP ONE ×2 (10:25→14:29)
[2017-10-07 10:40] LABS: ABG Base Excess 1 mEq/L (-2 to 3); ABG HCO3 26 mEq/L (21-27); ABG Oxygen Saturation 92 % (95-98); ABG PCO2 44 mmHg (35-45); ABG PH 7.38 pH Units (7.32-7.45); ABG PO2 64 mmHg (85-104); ABG TCO2 27 mEq/L (20-26)
[2017-10-07] MEDS ORDERED: *HR* Heparin 5,000 UNIT/ML VIAL IVP PRN (11:32)
[2017-10-07] MEDS ORDERED: *HR* Heparin 5,000 UNIT/ML VIAL IVP ONE (11:32)
[2017-10-07 13:10] LABS: Hematocrit 28.8 % (37.5-50.1); Hemoglobin 9.7 g/dL (12.9-16.9); Mean Corpuscular HGB Conc 33.7 g/dL (31.6-35.5); Mean Corpuscular Hemoglobin 31.8 pg (28.0-33.3); Mean Corpuscular Volume 94.4 fL (83.0-100.0); Mean Platelet Volume 10.4 fL (9.4-12.4); Platelet Count 257 K/mcL (140-400); Red Blood Count 3.05 M/mcL (4.19-5.50); Red Cell Distribution Width 13.6 % (11.5-14.5)
--- NOTE | 2017-10-07 13:45 | Nephrology Progress Note ---
<Fang Pappas - Last Filed: 10/07/17 14:17> Date of Encounter: 10/07/17 Time of Encounter: 13:33 - Assessment and Plan (1) Acute kidney injury superimposed on chronic kidney disease Current Visit: No Status: Acute Continue to avoid nephrotoxins and renal dose all medications. Renal diet when able to have a diet. Scr is 2 today, up from 1.93 GFR is 32 down from 33. Patient was on the schedule to have an upper scope completed today, unsure if this will take place due to Pt's change in respiratory status. Will continue to follow and monitor kidney function. (2) Abdominal pain Current Visit: Yes Status: Acute Per primary team. Qualifiers: Abdominal location: unspecified location Qualified Code(s): R10.9 - Unspecified abdominal pain (3) Nausea & vomiting Current Visit: Yes Status: Acute GI consult. Qualifiers: Vomiting type: unspecified Vomiting Intractability: unspecified Qualified Code(s): R11.2 - Nausea with vomiting, unspecified Subjective Principal diagnosis: low hgb, nausea Interval history: Pt was not in room, was at VQ scan. The family reports after taking some medications by mouth this morning, patient became short of breath. Objective - Vital Signs Vital signs: Vital Signs Temp Pulse Resp BP Pulse Ox 10/07/17 07:15 59 18 139/59 92 10/07/17 07:01 98.9 F 61 16 146/66 90 10/07/17 03:55 99.6 F 61 15 155/55 97 10/06/17 19:49 99.2 F 60 15 157/60 92 10/06/17 15:12 98.6 F 60 14 158/56 94 Intake and Output 10/06/17 10/07/17 10/07/17 23:59 07:59 15:59 Intake Total 237 / 237 813 / 813 120 / 120 Output Total 0 / 0 0 / 0 300 / 300 Balance 237 / 237 813 / 813 -180 / -180 Intake: IV Fluids 237 / 237 813 / 813 0.9 % Sodium Chloride 1,000 ML 187 / 187 813 / 813 @ 75 mls/hr IVC .[id number] [facility] Rx #:[id number] Magnesium Sulfate Premix 2gm/ 50 / 50 50mL 2 gm In 50 ml @ 50 mls/hr IVPB ONCE ONE Rx#:[id number] Oral 0 / 0 0 / 0 120 / 120 Output: Urine 0 / 0 0 / 0 300 / 300 Other: Meal Clear # Bowel Movements 0 0 Weight 70.5 kg Blood Glucose* 141 Patient Weight 10/07/17 23:59 Weight 70.5 kg - General Appearance General appearance: Present: well-developed, well-nourished, appears started age EENT: Present: ATNC, hearing intact, vision intact Neck: Present: supple Respiratory: Present: clear Cardiology: Present: no edema Gastrointestinal: Present: normoactive bowel sounds, no tenderness, no guarding Integumentary: Present: no rash, warm and dry Neurologic: Present: alert and oriented x3 Psychiatric: Present: mood/affect appropriate, cooperative - Lab 10/07/17 12:45 10/07/17 09:47 Most recent lab results ABG pH 7.38 pH Units (7.32-7.45) 10/07/17 10:36 ABG pCO2 44 mmHg (35-45) 10/07/17 10:36 ABG pO2 64 mmHg (85-104) L 10/07/17 10:36 ABG HCO3 26 mEq/L (21-27) 10/07/17 10:36 ABG O2 Saturation 92 % (95-98) L 10/07/17 10:36 Calcium 8.1 mg/dL (8.6-10.3) L 10/07/17 09:47 Magnesium 1.5 mg/dL (1.6-2.6) L 10/06/17 00:58 Consult Discharge Plan - Plan Referrals: Avel Linares MD [Primary Care Provider] - <James Caldera - Last Filed: 10/08/17 07:04> Date of Encounter: 10/07/17 Objective - Vital Signs Vital signs: Vital Signs Temp Pulse Resp BP Pulse Ox 10/08/17 06:04 99.0 F 60 31 150/67 92 10/08/17 04:04 99.6 F 60 29 150/75 92 10/08/17 03:55 26 93 10/08/17 02:25 18 88 10/08/17 02:14 98.3 F 60 20 155/70 97 10/07/17 23:26 99.2 F 60 18 155/62 91 10/07/17 20:04 98.3 F 60 20 160/65 92 10/07/17 15:00 98.1 F 60 20 144/58 89 10/07/17 07:15 59 18 139/59 92 Intake and Output 10/07/17 10/07/17 10/08/17 15:59 23:59 07:59 Intake Total 795 / 795 124 / 124 62.8 / 62.8 Output Total 300 / 300 50 / 50 0 / 0 Balance 495 / 495 74 / 74 62.8 / 62.8 Intake: IV Fluids 675 / 675 124 / 124 62.8 / 62.8 0.9 % Sodium Chloride 1,000 ML 675 / 675 @ 75 mls/hr IVC .[id number] [facility]ARY[facility] Rx #:[id number] Heparin 25,000 UNIT/500 ML D5W 124 / 124 62.8 / 62.8 25,000 unit In 500 ml @ 12 UNIT /KG/HR 16.92 mls/hr IVC .Q24H [facility] Rx#:[id number] Oral 120 / 120 0 / 0 0 / 0 Output: Urine 300 / 300 50 / 50 0 / 0 Other: Meal NPO Percent of Meal Consumed 0% # Voids 1 # Bowel Movements 0 Weight 70.5 kg Blood Glucose* 140 130 Patient Weight 10/08/17 23:59 Weight 70.5 kg - Lab 10/08/17 02:30 10/07/17 09:47 Most recent lab results ABG pH 7.38 pH Units (7.32-7.45) 10/07/17 10:36 ABG pCO2 44 mmHg (35-45) 10/07/17 10:36 ABG pO2 64 mmHg (85-104) L 10/07/17 10:36 ABG HCO3 26 mEq/L (21-27) 10/07/17 10:36 ABG O2 Saturation 92 % (95-98) L 10/07/17 10:36 Calcium 8.1 mg/dL (8.6-10.3) L 10/07/17 09:47 Magnesium 1.5 mg/dL (1.6-2.6) L 10/06/17 00:58 - Attending Attestation I examined this patient and my medical decision-making was reviewed with the Resident Physician. I agree with the documented findings, disposition and treatment plan as described except to the extent set forth below. Pt seen and examined with iterim events noted. Per family pt was acutely SOB today requiring eval with V/Q scan done results pending and elevated trop noted per nurse. at bedside along with other family members. SCr noted stable at 2.0, GFR 32. Hgb noted at 9.4. Cardiology consulted. Will monitor peripherally.
[2017-10-07 13:58] LABS: INR 1.1; Prothrombin Time 11.7 Seconds (9.4-12.1)
[2017-10-07] MEDS: Heparin 25,000 UNIT/500 ML D5W 25,000 UNIT/500 ML BAG IVC SCH (14:55)
--- NOTE | 2017-10-07 15:55 | Cardiology Consult Note ---
Date of Encounter: 10/08/17 Time of Encounter: 16:00 Assessment and Plan (1) NSTEMI (non-ST elevated myocardial infarction) Current Visit: Yes Status: Acute Trend troponin, patient has CKD 3-4 and family notices difficulty with his speech that is changed (I agree having seen him in clinic before). Will check CT head to ruleout CVA. Repeat troponin stat ordered at 1400, if markedly elevating will proceed with C. A/R/B of C discussed with he and family, will use contrast sparing regimen. Mildly elevated troponin also 2/2 CHF. TTE ordered. VQ scan low probability for PE. (2) CKD (chronic kidney disease) Current Visit: Yes Status: Acute Qualifiers: Chronic kidney disease stage: stage 4 (severe) Qualified Code(s): N18.4 - Chronic kidney disease, stage 4 (severe) (3) CAD (coronary artery disease) Current Visit: Yes Status: Acute Qualifiers: Coronary Disease-Associated Artery/Lesion type: bypass graft [place] vs. transplanted heart: [place] heart Associated angina: with unstable angina Qualified Code(s): I25.700 - Atherosclerosis of coronary artery bypass graft(s) , unspecified, with unstable angina pectoris Discussion w patient/family: The assessment and plan as outlined above was discussed with the patient and/or family members who expressed understanding and agreement. All questions were answered. Thank you for involving us in the care of your patient. Please call with any questions. History of Present Illness Consult date: 10/07/17 Chief complaint: dyspnea and nausea History of present illness: Mr. Avendaño is a 87 year old male with CAD sp 3vsl 2009 CABG, CKD 3-4, sp PPM presents with nausea and epigastric fullness (unlike previous angina). EGD was planned and aspirin/plavix held in preparation. This morning he developed sudden onset dyspnea - VQ scan low prob for PE. He denies chest/jaw/arm discomfort and states he feels better currently. He notes no word finding issues but family notices slow speech. Past Med Surg Social Fam HX - Past Medical History Medical history: CHF, coronary artery disease, diabetes, GERD, hyperlipidemia, hypertension, kidney stones, myocardial infarction, renal disease, thyroid disease Additional medical history: anemia, peptic ulcer, sleep apnea, bradycardia, gout Psychiatric history: depression - Past Surgical History Surgical History: cholecystectomy, coronary bypass (CABG), pacemaker/AICD Additional surgical history: 2 heart stents, sinus surgery - Social History Smoking Status: Former smoker Smokeless Tobacco Status: No Alcohol use: none Drug use: none - Family History Mother Living Status: Hx Family Cardiac Disorders: Yes Father Living Status: Hx Family Cardiac Disorders: Yes Sister Living Status: Hx Family Cardiac Disorders: Yes (cardiac dx) Brother Living Status: Hx Family Cancer: Yes (colon) Medications and Allergies Amlodipine Besylate 10 mg PO DAILY 08/20/17 [History] Aspirin [Lo-Dose Aspirin EC] 81 mg PO DAILY 08/20/17 [History] Atenolol [Tenormin] 50 mg PO DAILY 08/20/17 [History] Atorvastatin Calcium [Lipitor] 80 mg PO HS 08/20/17 [History] Calcitriol [Rocaltrol] 0.25 mcg PO DAILY 08/20/17 [History] Cetirizine HCl [All Day Allergy] 10 mg PO DAILY 08/20/17 [History] Clopidogrel [Plavix] 75 mg PO DAILY 08/20/17 [History] Febuxostat [Uloric] 40 mg PO DAILY 08/20/17 [History] Gabapentin [Neurontin] 300 mg PO QAM 08/20/17 [History] Gabapentin [Neurontin] 600 mg PO HS 08/20/17 [History] Ipratropium [place] 1 spr NS BID 08/20/17 [History] Levothyroxine [Synthroid] 50 mcg PO 0630 08/20/17 [History] Mirabegron [Myrbetriq] 50 mg PO DAILY 08/20/17 [History] [place]-3/Dha/Epa/Fish Oil [Fish Oil 500 mg Softgel] 1 cap PO DAILY 08/20/17 [ History] Isosorbide MONOnitrate (24 HR) [Imdur] 30 mg PO DAILY #30 tab.er.24h 08/22/17 [ Rx] Nitroglycerin [Nitrostat] 0.4 mg SL Q5MIN PRN #30 tab.subl 08/22/17 [Rx] Pantoprazole Sodium 40 mg PO DAILY #30 tablet.dr 08/22/17 [Rx] Ondansetron ODT [Zofran ODT] 4 mg SL Q4HR PRN #14 tab.rapdis 09/25/17 [Rx] Acetaminophen [Tylenol] 650 mg PO Q6HR PRN tablet 09/30/17 [Rx] Docusate [Colace] 100 mg PO DAILY PRN capsule 09/30/17 [Rx] Multivit/Ca/Min/Fe/FA [Thera M Plus] 1 tab PO DAILY tablet 09/30/17 [Rx] hydrALAZINE [HydrALAZINE] 25 mg PO Q8HR 30 Days #90 tablet 09/30/17 [Rx] hydroCHLOROthiazide [Hydrochlorothiazide] 25 mg PO DAILY 10/05/17 [History] 3 Allergy/AdvReac Type Severity Reaction Status Date / Time tape AdvReac skin Uncoded 10/05/17 09:11 breakdown All Systems Review: The remainder of the systems were reviewed and are negative - Constitutional Constitutional: no chills, no fever(s) - EENT Nose, mouth and throat: no odynophagia, no throat swelling - Cardiovascular Cardiovascular: no chest pain at rest, no chest pain with exertion - Respiratory Respiratory: no hemoptysis, no wheezing - Gastrointestinal Gastrointestinal: no hematemesis, no hematochezia - Genitourinary Genitourinary: no dysuria, no hematuria - Musculoskeletal Musculoskeletal: no muscle cramps, no muscle weakness - Integumentary Integumentary: no erythema, no rash - Neurological Neurological: no syncope, no tingling - Psychiatric Psychiatric: no hallucinations, no panic attacks - Hematological/Lymphatic Hematologic/Lymphatic: no easy bleeding, no easy bruising Physical Examination Vital Signs, Last 4 Hours Temp Pulse Resp BP Pulse Ox 10/07/17 15:00 98.1 F 60 20 144/58 89 General: Conversant HEENT: Atraumatic Neck: No JVD Cardiac: Reg Rate and Rhythm Lungs: Other (bl crackles) Neuro: Alert and responsive Abdomen: Soft Skin: No rashes noted on visualized skin Musculoskeletal: No Chest Wall Tenderness Extremities: No Edema Results 10/08/17 02:30 10/07/17 09:47 Lab Results 10/07/17 10/07/17 10/07/17 09:47 09:47 10:37 WBC 9.5 Hgb 9.4 L Hct 28.7 L Plt Count 232 INR APTT Sodium 144 Potassium 4.1 Chloride 113 H Carbon Dioxide 22 L BUN 35 H Creatinine 2.00 H Glucose 190 H Calcium 8.1 L Troponin I 0.41 H* 10/07/17 10/07/17 12:45 13:17 WBC 11.1 Hgb 9.7 L Hct 28.8 L Plt Count 257 INR 1.1 APTT 25.0 L Sodium Potassium Chloride Carbon Dioxide BUN Creatinine Glucose Calcium Troponin I - EKG Interpretation EKG results cardiology: personally reviewed (paced rhythm) Consult Discharge Plan - Plan Referrals: Avel Linares MD [Primary Care Provider] -
--- NOTE | 2017-10-07 19:33 | Internal Med Progress Note ---
Date of Encounter: 10/07/17 Time of Encounter: 10:00 - Assessment and plan (1) NSTEMI (non-ST elevated myocardial infarction) Current Visit: Yes Status: Acute Assessment and plan: Patient with acute hypoxic respiratory failure this morning and found to have elevated troponins V/Q scan negative for pulmonary embolism Chest x-ray showed small bilateral pleural effusions; IV Lasix given Cardiology consulted with recommendations to trend troponins with consideration of left heart catheter if no improvement Patient has been started on heparin drip (2) CAD (coronary artery disease) Current Visit: Yes Status: Acute Assessment and plan: Will continue home medications Qualifiers: Associated angina: without angina Qualified Code(s): I25.10 - Atherosclerotic heart disease of [place] coronary artery without angina pectoris (3) Ischemic cardiomyopathy Current Visit: Yes Status: Acute Assessment and plan: Patient with history of CABG and pacemaker placement (4) Nausea & vomiting Current Visit: Yes Status: Acute Assessment and plan: GI has been consulted for an EGD which has been canceled due to the above Qualifiers: Vomiting type: unspecified Vomiting Intractability: unspecified Qualified Code(s): R11.2 - Nausea with vomiting, unspecified (5) Anemia Current Visit: No Status: Chronic Assessment and plan: Patient with chronic anemia and hemoglobin slightly below baseline at 9.7 today Workup with EGD on hold due to the above Qualifiers: Anemia type: unspecified type Qualified Code(s): D64.9 - Anemia, unspecified (6) Hypertension Current Visit: No Status: Chronic Assessment and plan: Blood pressure slightly elevated; continue home medications Qualifiers: Hypertension type: essential hypertension Qualified Code(s): I10 - Essential (primary) hypertension (7) CKD (chronic kidney disease) stage 3, GFR 30-59 ml/min Current Visit: Yes Status: Acute Assessment and plan: Creatinine close to baseline; continue to monitor - Time Spent With Patient Total time spent is greater than 50% in coordination of care (as documented) at patient's floor/unit and/or counseling patient: - Subjective Interval history: Patient this morning with acute hypoxic respiratory failure found to have elevated troponins Cardiology consulted with recommendations for consideration of LHC if no improvement in troponins - Constitutional Vitals: Temp Pulse Resp BP Pulse Ox 98.1 F 60 20 144/58 89 10/07/17 15:00 10/07/17 15:00 10/07/17 15:00 10/07/17 15:00 10/07/17 15:00 General appearance: Present: mild distress, A&O X 3, no acute distress - Respiratory Respiratory exam: Present: CTAB. Absent: accessory muscle use, rales, rhonchi, wheezes - Cardiovascular Cardiovascular exam: Present: RRR, +S1, +S2. Absent: diastolic murmur, gallop, rubs, systolic murmur - Expanded Neurological Exam Neurological exam expanded: Absent: expressive aphasia Speech: Absent: slurred Cranial Nerves: EOM's intact PM: Normal, tongue deviation PM: Normal Cerebellar function: finger to nose: Normal Neuro motor strength exam: LUE: 5, RUE: 5, LLE: 5, RLE: 5 - Psychiatric Psychiatric exam: Present: normal mood Internal Medicine: Result - Labs CBC & Chem 7: 10/07/17 12:45 10/07/17 09:47 Labs: Short CBC 10/07/17 10/07/17 Range/Units 09:47 12:45 WBC 9.5 11.1 (4.3-11.1) K/mcL Hgb 9.4 L 9.7 L (12.9-16.9) g/dL Hct 28.7 L 28.8 L (37.5-50.1) % Plt Count 232 257 (140-400) K/mcL Neutrophils # 7.5 (1.6-8.9) K/mcL BMP 10/07/17 09:47 Sodium 144 Potassium 4.1 Chloride 113 H Carbon Dioxide 22 L BUN 35 H Creatinine 2.00 H Glucose 190 H Calcium 8.1 L Cardiac Enzymes 10/07/17 10/07/17 Range/Units 10:37 15:30 Troponin I 0.41 H* 1.25 H* (< 0.04) ng/mL - ABG Interpretation ABG results: ABG ABG pH 7.38 pH Units (7.32-7.45) 10/07/17 10:36 ABG pCO2 44 mmHg (35-45) 10/07/17 10:36 ABG pO2 64 mmHg (85-104) L 10/07/17 10:36 ABG O2 Saturation 92 % (95-98) L 10/07/17 10:36 PT/INR, D-dimer PT 11.7 Seconds (9.4-12.1) 10/07/17 13:17 - Impressions Impressions Chest X-Ray 10/07/17 10:08 IMPRESSION: Small bilateral pleural effusions and interstitial pulmonary edema. Patchy bilateral pulmonary consolidation may represent alveolar edema and/or pneumonia. D/ / 10/07/2017 10:34:32 Bert Moralez MD / Yen Omalley Interpreting Provider: Bert Moralez MD Pulmonary Perfusion Imaging 10/07/17 10:36 IMPRESSION: Low probability for pulmonary embolus. D/ / Dex Wilson MD / Dex Wilson MD Interpreting Provider: eDx Wilson MD Head CT 10/07/17 15:52 IMPRESSION: Patchy areas of small vessel ischemic changes are noted bilaterally Asymmetric low density in the external capsule regions, left greater than right. This is age indeterminate. 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
[2017-10-08] MEDS: Ipratropium/Albuterol Neb 3 ML IH PRN ×2 (02:23→20:31)
[2017-10-08 02:50] LABS: Hemoglobin 9.4 g/dL (12.9-16.9); Mean Corpuscular HGB Conc 32.4 g/dL (31.6-35.5); Mean Corpuscular Volume 95.7 fL (83.0-100.0); Mean Platelet Volume 10.7 fL (9.4-12.4); Platelet Count 246 K/mcL (140-400); Red Blood Count 3.03 M/mcL (4.19-5.50); Red Cell Distribution Width 13.4 % (11.5-14.5)
[2017-10-08] MEDS ORDERED: Furosemide 40 MG/4 ML VIAL IVP ONE (03:14)
--- NOTE | 2017-10-08 03:46 | Event Note ---
Date of Encounter: 10/08/17 Time of Encounter: 02:00 Pt has SOB and desaturation. See pt bedside. Pt has wheezes. Place pt on duoneb once. CXR shows pulmonary edema and possible pneumonitis. Pt also has elevated WBC. Will give pt lasix 40mg iv once. Statr abx vanco and cefepime to cover HAP. Place pt on BiPAP for respiratory support.
[2017-10-08] MEDS ORDERED: Cefepime HCl 2,000 MG in Water for inj. (sterile) 20 ML 20 ML IVP SCH (06:00)
[2017-10-08 08:18] LABS: Calcium 7.1 mg/dL (8.6-10.3); Potassium 3.4 mEq/L (3.5-5.1)
--- NOTE | 2017-10-08 09:42 | Pulmonology Consult Note ---
<Rayna Northleidy M - Last Filed: 10/08/17 13:16> Date of Encounter: 10/08/17 Medications and Allergies Amlodipine Besylate 10 mg PO DAILY 08/20/17 [History] Aspirin [Lo-Dose Aspirin EC] 81 mg PO DAILY 08/20/17 [History] Atenolol [Tenormin] 50 mg PO DAILY 08/20/17 [History] Atorvastatin Calcium [Lipitor] 80 mg PO HS 08/20/17 [History] Calcitriol [Rocaltrol] 0.25 mcg PO DAILY 08/20/17 [History] Cetirizine HCl [All Day Allergy] 10 mg PO DAILY 08/20/17 [History] Clopidogrel [Plavix] 75 mg PO DAILY 08/20/17 [History] Febuxostat [Uloric] 40 mg PO DAILY 08/20/17 [History] Gabapentin [Neurontin] 300 mg PO QAM 08/20/17 [History] Gabapentin [Neurontin] 600 mg PO HS 08/20/17 [History] Ipratropium [place] 1 spr NS BID 08/20/17 [History] Levothyroxine [Synthroid] 50 mcg PO 0630 08/20/17 [History] Mirabegron [Myrbetriq] 50 mg PO DAILY 08/20/17 [History] Donnellson-3/Dha/Epa/Fish Oil [Fish Oil 500 mg Softgel] 1 cap PO DAILY 08/20/17 [ History] Isosorbide MONOnitrate (24 HR) [Imdur] 30 mg PO DAILY #30 tab.er.24h 08/22/17 [ Rx] Nitroglycerin [Nitrostat] 0.4 mg SL Q5MIN PRN #30 tab.subl 08/22/17 [Rx] Pantoprazole Sodium 40 mg PO DAILY #30 tablet.dr 08/22/17 [Rx] Ondansetron ODT [Zofran ODT] 4 mg SL Q4HR PRN #14 tab.rapdis 09/25/17 [Rx] Acetaminophen [Tylenol] 650 mg PO Q6HR PRN tablet 09/30/17 [Rx] Docusate [Colace] 100 mg PO DAILY PRN capsule 09/30/17 [Rx] Multivit/Ca/Min/Fe/FA [Thera M Plus] 1 tab PO DAILY tablet 09/30/17 [Rx] hydrALAZINE [HydrALAZINE] 25 mg PO Q8HR 30 Days #90 tablet 09/30/17 [Rx] hydroCHLOROthiazide [Hydrochlorothiazide] 25 mg PO DAILY 10/05/17 [History] 3 Allergy/AdvReac Type Severity Reaction Status Date / Time tape AdvReac skin Uncoded 10/05/17 09:11 breakdown All Systems: The remainder of the systems were reviewed and are negative Physical Examination Vital Signs: Vital Signs, Last 4 Hours Temp Pulse Resp BP Pulse Ox 10/08/17 12:00 98.1 F 68 28 138/62 94 10/08/17 10:49 98.3 F 60 15 156/56 91 Results - Laboratory Findings CBC and BMP: 10/08/17 02:30 10/08/17 06:49 ABG ABG pH 7.38 pH Units (7.32-7.45) 10/07/17 10:36 ABG pCO2 44 mmHg (35-45) 10/07/17 10:36 ABG pO2 64 mmHg (85-104) L 10/07/17 10:36 ABG O2 Saturation 92 % (95-98) L 10/07/17 10:36 PT/INR, D-dimer PT 11.7 Seconds (9.4-12.1) 10/07/17 13:17 Abnormal lab findings: Abnormal lab results WBC 13.9 K/mcL (4.3-11.1) H 10/08/17 02:30 RBC 3.03 M/mcL (4.19-5.50) L 10/08/17 02:30 Hgb 9.4 g/dL (12.9-16.9) L 10/08/17 02:30 Hct 29.0 % (37.5-50.1) L 10/08/17 02:30 APTT 58.3 Seconds (26.0-36.0) H 10/08/17 08:40 ABG pO2 64 mmHg (85-104) L 10/07/17 10:36 ABG Total CO2 27 mEq/L (20-26) H 10/07/17 10:36 ABG O2 Saturation 92 % (95-98) L 10/07/17 10:36 Potassium 3.4 mEq/L (3.5-5.1) L 10/08/17 06:49 Chloride 114 mEq/L (98-107) H 10/08/17 06:49 Carbon Dioxide 22 mEq/L (23-29) L 10/08/17 06:49 BUN 38 mg/dL (8-23) H 10/08/17 06:49 Creatinine 1.99 mg/dL (0.70-1.30) H 10/08/17 06:49 Est GFR ( Amer) 39 (> 60) L 10/08/17 06:49 Est GFR (Non-Af Amer) 32 (> 60) L 10/08/17 06:49 Glucose 122 mg/dL (70-105) H 10/08/17 06:49 POC Glucose 130 mg/dL (70-99) H 10/08/17 06:10 Calculated Osmolality 308 (280-300) H 10/08/17 06:49 Calcium 7.1 mg/dL (8.6-10.3) L 10/08/17 06:49 Magnesium 1.5 mg/dL (1.6-2.6) L 10/06/17 00:58 Troponin I 1.56 ng/mL (< 0.04) H* 10/08/17 02:30 B-Natriuretic Peptide 796 pg/mL (Less than 100) H 10/06/17 00:58 Serum Total Protein 5.6 g/dL (6.4-8.9) L 10/06/17 00:58 Albumin 3.1 g/dL (3.5-5.7) L 10/06/17 00:58 Urine Protein 100 mg/dL (Neg-Trace) H 10/05/17 10:00 - Clinical Findings Intake & Output: Intake & Output 10/07/17 10/08/17 10/08/17 23:59 07:59 15:59 Intake Total 124 / 124 82.8 / 82.8 89 / 89 Output Total 50 / 50 0 / 0 50 / 50 Balance 74 / 74 82.8 / 82.8 39 / 39 Weight 70.5 kg Consult Discharge Plan - Plan Referrals: Avel Linares MD [Primary Care Provider] - - Attending Attestation I examined this patient and my medical decision-making was reviewed with the Resident Physician. I agree with the documented findings, disposition and treatment plan as described except to the extent set forth below. Patient seen and examined. Labs, radiology, chart personally reviewed. 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 Patient is feeling better at this time and to keep SPO2 around 92% and empiric antibiotics. I suspect mild elevation of troponin is demand ischemia and cardiology is following. I have discussed with the primary team and also family at the bedside plan of care. Please call for any questions and thank you for consultation. <Cash Arroyo - Last Filed: 10/08/17 13:50> Date of Encounter: 10/08/17 Time of Encounter: 09:41 Assessment and Plan (1) Pulmonary edema Current Visit: Yes Status: Acute 1. Based on CXR, has worsened since admission but patient stable at this time and denying SOB and is not dyspneic 2. Could be related to volume overload from IVF resucitation vs possible aspiration vs CHF (elevated BNP as well) 3. Would cover with empiric ABX for next 48 hours and deescelate if remains stable 4. Further workup and management of suspected cardiac cause of demand ischemia ( elevated trop) defer to primary/cardiology teams. 5. Thank you for the consult, please call with further questions. Qualifiers: Chronicity: acute Qualified Code(s): J81.0 - Acute pulmonary edema History of Present Illness Consult date: 10/08/17 Requesting physician: Nubia Melo Reason for consult: dyspnea History of present illness: consulted for shortness of breath. Patient with CHF and NSTEMI. Denies and SOB at this time and states he is feeling better now. No chest pain. Patient does have dementia and states his daughter would be back later and be able to give more history. Past Med Surg Social Fam HX - Past Medical History Medical history: CHF, coronary artery disease, diabetes, GERD, hyperlipidemia, hypertension, kidney stones, myocardial infarction, renal disease, thyroid disease Additional medical history: anemia, peptic ulcer, sleep apnea, bradycardia, gout Psychiatric history: depression - Past Surgical History Surgical History: cholecystectomy, coronary bypass (CABG), pacemaker/AICD Additional surgical history: 2 heart stents, sinus surgery - Social History Smoking Status: Former smoker Smokeless Tobacco Status: No Alcohol use: none Drug use: none - Family History Mother Living Status: Hx Family Cardiac Disorders: Yes Father Living Status: Hx Family Cardiac Disorders: Yes Sister Living Status: Hx Family Cardiac Disorders: Yes (cardiac dx) Brother Living Status: Hx Family Cancer: Yes (colon) ROS unobtainable: due to mental status (but is able to deny SOB and CP) All Systems: The remainder of the systems were reviewed and are negative Physical Examination Vital Signs: Vital Signs, Last 4 Hours Temp Pulse Resp BP Pulse Ox 10/08/17 08:46 98.2 F 60 16 166/58 91 10/08/17 08:05 99.6 F 60 24 166/67 93 10/08/17 06:04 99.0 F 60 31 150/67 92 General appearance: no acute distress, alert Eyes: nonicteric ENT: oropharynx dry Neck: supple Effort: normal Auscultation: bilateral: wheezes Cardiovascular: regular rate and rhythm, murmur noted Gastrointestinal: normoactive bowel sounds Integumentary: normal Extremities: no cyanosis Musculoskeletal: no deformities normal mental status (chronic dementia per who also states she has poor memory ) mood appropriate Results - Laboratory Findings CBC and BMP: 10/08/17 02:30 10/08/17 06:49 ABG ABG pH 7.38 pH Units (7.32-7.45) 10/07/17 10:36 ABG pCO2 44 mmHg (35-45) 10/07/17 10:36 ABG pO2 64 mmHg (85-104) L 10/07/17 10:36 ABG O2 Saturation 92 % (95-98) L 10/07/17 10:36 PT/INR, D-dimer PT 11.7 Seconds (9.4-12.1) 10/07/17 13:17 Abnormal lab findings: Abnormal lab results WBC 13.9 K/mcL (4.3-11.1) H 10/08/17 02:30 RBC 3.03 M/mcL (4.19-5.50) L 10/08/17 02:30 Hgb 9.4 g/dL (12.9-16.9) L 10/08/17 02:30 Hct 29.0 % (37.5-50.1) L 10/08/17 02:30 APTT 58.3 Seconds (26.0-36.0) H 10/08/17 08:40 ABG pO2 64 mmHg (85-104) L 10/07/17 10:36 ABG Total CO2 27 mEq/L (20-26) H 10/07/17 10:36 ABG O2 Saturation 92 % (95-98) L 10/07/17 10:36 Potassium 3.4 mEq/L (3.5-5.1) L 10/08/17 06:49 Chloride 114 mEq/L (98-107) H 10/08/17 06:49 Carbon Dioxide 22 mEq/L (23-29) L 10/08/17 06:49 BUN 38 mg/dL (8-23) H 10/08/17 06:49 Creatinine 1.99 mg/dL (0.70-1.30) H 10/08/17 06:49 Est GFR ( Amer) 39 (> 60) L 10/08/17 06:49 Est GFR (Non-Af Amer) 32 (> 60) L 10/08/17 06:49 Glucose 122 mg/dL (70-105) H 10/08/17 06:49 POC Glucose 130 mg/dL (70-99) H 10/08/17 06:10 Calculated Osmolality 308 (280-300) H 10/08/17 06:49 Calcium 7.1 mg/dL (8.6-10.3) L 10/08/17 06:49 Magnesium 1.5 mg/dL (1.6-2.6) L 10/06/17 00:58 Troponin I 1.56 ng/mL (< 0.04) H* 10/08/17 02:30 B-Natriuretic Peptide 796 pg/mL (Less than 100) H 10/06/17 00:58 Serum Total Protein 5.6 g/dL (6.4-8.9) L 10/06/17 00:58 Albumin 3.1 g/dL (3.5-5.7) L 10/06/17 00:58 Urine Protein 100 mg/dL (Neg-Trace) H 10/05/17 10:00 - Clinical Findings Intake & Output: Intake & Output 10/07/17 10/08/17 10/08/17 23:59 07:59 15:59 Intake Total 124 / 124 82.8 / 82.8 Output Total 50 / 50 0 / 0 Balance 74 / 74 82.8 / 82.8 Weight 70.5 kg
[2017-10-08] MEDS: amLODIPine 5 MG TABLET PO SCH (10:00)
[2017-10-08] MEDS: Gabapentin 300 MG CAPSULE PO SCH ×2 (10:00→20:38)
[2017-10-08] MEDS: Loratadine 10 MG TABLET PO SCH (10:00)
[2017-10-08] MEDS: Aspirin Enteric Coated 81 MG Tablet PO SCH (10:00)
[2017-10-08] MEDS: Multivit/Ca/Min/Fe/FA 1 TAB TABLET PO SCH (10:00)
[2017-10-08] MEDS: hydrALAZINE 25 MG TABLET PO SCH ×3 (10:01→20:38)
[2017-10-08] MEDS: Furosemide 40 MG/4 ML VIAL IVP SCH ×2 (10:01→20:38)
[2017-10-08] MEDS: Isosorbide MONOnitrate (24 HR) 30 MG TAB.ER.24H PO SCH (10:01)
[2017-10-08] MEDS: *HR* Heparin 5,000 UNIT/ML VIAL IVP PRN ×2 (10:05→16:43)
--- NOTE | 2017-10-08 11:07 | Nephrology Progress Note ---
Date of Encounter: 10/08/17 Time of Encounter: 09:45 - Assessment and Plan (1) Pulmonary edema Current Visit: Yes Status: Acute He has CKD stage IV and during which, this highly complex and high risk patient has developed acute confusion and suspecious CT Head (pending MRI), acute respiratory distress with pulmonary edema, NSTEMI and worsening anemia with N/V suggestive of a GIB. Fortunately his renal function is stable, but over the last few days he had been receiving IVF, which may have pushed him into pulmonary edema. I agree with the IV diuretics and have arranged / scheduled Lasix 40mg IV BID. I updated the family including his and daughter (who is an [place] RN) on the renal status and my recommendations. I agree with Cardiology, that he likely needs an MRI Brain when stable. Ideally as the lasix helps improve his volume status, then he may be more stable for an MRI. NSTEMI: I will not be able to add IVF at this time for a LHC but I have empically added NAC. If he were to need a LHC then proceed, however, his renal function may or may not decline. Continue to follow a renal protective strategy as able: dose Rx by eGFR, avoid NSAIDs, Bactrim and to follow strict I/Os plus dose renally cleared Rx by eGFR. Will close follow with you. Qualifiers: Chronicity: acute Qualified Code(s): J81.0 - Acute pulmonary edema (2) MINOR (acute kidney injury) Current Visit: No Status: Resolved Improved but he is at risk for this worsening again with the need for diuretics (3) CKD (chronic kidney disease), stage IV Current Visit: Yes Status: Chronic His CKD has been in the stage IV range, not stage III. (4) Abdominal pain Current Visit: Yes Status: Acute Appreciate GI Qualifiers: Abdominal location: unspecified location Qualified Code(s): R10.9 - Unspecified abdominal pain (5) Nausea & vomiting Current Visit: Yes Status: Acute Appreciate GI Qualifiers: Vomiting type: unspecified Vomiting Intractability: unspecified Qualified Code(s): R11.2 - Nausea with vomiting, unspecified (6) Hypertension Current Visit: Yes Status: Chronic Avoiding an ODIN or ARB d/t his renal problems as described above. Qualifiers: Hypertension type: essential hypertension Qualified Code(s): I10 - Essential (primary) hypertension (7) NSTEMI (non-ST elevated myocardial infarction) Current Visit: Yes Status: Suspected Appreciate Cardiology Subjective Principal diagnosis: low hgb, nausea Interval history: Pt was seen and examined. His family was present including his daughters and his . Yesterday the pt's dyspnea suddenly worsened and he underwent a V/Q scan and received periodic doses x2 of Lasix IV. He remains short of breath he affirmed. He feels very week but did affirm that he is not having N/V/D or dizziness. His daughter (the RN) reported that Cardiology has been following and may recommend a [facility] soon. Objective - Vital Signs Vital signs: Vital Signs Temp Pulse Resp BP Pulse Ox 10/08/17 10:49 98.3 F 60 15 156/56 91 10/08/17 08:46 98.2 F 60 16 166/58 91 10/08/17 08:05 99.6 F 60 24 166/67 93 10/08/17 06:04 99.0 F 60 31 150/67 92 10/08/17 04:04 99.6 F 60 29 150/75 92 10/08/17 03:55 26 93 10/08/17 02:25 18 88 10/08/17 02:14 98.3 F 60 20 155/70 97 10/07/17 23:26 99.2 F 60 18 155/62 91 10/07/17 20:04 98.3 F 60 20 160/65 92 10/07/17 15:00 98.1 F 60 20 144/58 89 Intake and Output 10/07/17 10/08/17 10/08/17 23:59 07:59 15:59 Intake Total 124 / 124 82.8 / 82.8 89 / 89 Output Total 50 / 50 0 / 0 0 / 0 Balance 74 / 74 82.8 / 82.8 89 / 89 Intake: IV Fluids 124 / 124 82.8 / 82.8 89 / 89 Heparin 25,000 UNIT/500 ML D5W 124 / 124 62.8 / 62.8 89 / 89 25,000 unit In 500 ml @ 12 UNIT /KG/HR 16.92 mls/hr IVC .Q24H MARYANN Rx#:[id number] Maxipime 2,000 MG In Water for 20 / 20 inj. (sterile) 20 ML @ 300 mls/ hr IVP Q12HR MARYANN Rx#:[id number] Oral 0 / 0 0 / 0 0 / 0 Output: Urine 50 / 50 0 / 0 0 / 0 Other: Meal NPO # Voids 1 Weight 70.5 kg Blood Glucose* 140 130 Patient Weight 10/08/17 23:59 Weight 70.5 kg - General Appearance General appearance: Present: appears started age, moderate distress, fatigue, frail EENT: Present: ATNC, PERRL, mucous membranes moist Neck: Present: supple Respiratory: Present: course breath sounds (with increased work of breathing noted; using O2 by NC during my exam) Cardiology: Present: holosystolic murmur, no edema, regular rate, regular rhythm , normal S1, normal S2 Gastrointestinal: Present: normoactive bowel sounds, no tenderness, no guarding Integumentary: Present: no rash, warm and dry Neurologic: Present: no focal deficit (he moved all four extremities and was able to have short conversation due to his shortness of breath), no asterixis Musculoskeletal: Present: no cyanosis, no clubbing Psychiatric: Present: mood/affect appropriate, cooperative - Lab 10/08/17 02:30 10/08/17 06:49 Most recent lab results ABG pH 7.38 pH Units (7.32-7.45) 10/07/17 10:36 ABG pCO2 44 mmHg (35-45) 10/07/17 10:36 ABG pO2 64 mmHg (85-104) L 10/07/17 10:36 ABG HCO3 26 mEq/L (21-27) 10/07/17 10:36 ABG O2 Saturation 92 % (95-98) L 10/07/17 10:36 Calcium 7.1 mg/dL (8.6-10.3) L 10/08/17 06:49 Magnesium 1.5 mg/dL (1.6-2.6) L 10/06/17 00:58 Consult Discharge Plan - Plan Referrals: Avel Linares MD [Primary Care Provider] -
--- NOTE | 2017-10-08 14:05 | Cardiology Progress Note ---
<WillowSaul harvey - Last Filed: 10/08/17 14:20> Date of Encounter: 10/08/17 Time of Encounter: 14:03 Assessment and Plan (1) Elevated troponin Current Visit: Yes Status: Acute - Troponin elevated most recently at 1.56 which is stable from previous of 1.68 - In the setting of CKD stage 3-4 - Possibly secondary to demand vs NSTEMI vs CHF - BNP elevated at 796, getting lasix. Nephro following - CT head for slurred speech yesterday showed Patchy areas of small vessel ischemic changes are noted bilaterally as well as age indeterminate findings. - CXR shows severe perihilar and diffuse ground glass opacities suggestive of worsening pulmonary edema vs pneumonitis - Echo 10/07/17 shows EF 55-60% with indeterminate diastolic. Mild-mod AR, , MR , TR and severe pulm HTN - V/Q scan low probability for PE Plan - Continue home BB, plavix, ASA, heparin gtt - Recommend neuro consult as well as MRI to further evaluate for new brain lesions and rule out stroke - Hold off any [facility] until stroke is ruled out for risk of hemorrhagic conversion - No complaints of CP, improved SOB (2) Ischemic cardiomyopathy Current Visit: Yes Status: Acute - As above s/p pacemaker - Continue home meds - S/p CABG x3 in 2008 (3) NSTEMI (non-ST elevated myocardial infarction) Current Visit: Yes Status: Suspected (4) Anemia Current Visit: Yes Status: Chronic - H/H stable, chronic - Further management per primary team Qualifiers: Anemia type: unspecified type Qualified Code(s): D64.9 - Anemia, unspecified (5) Diabetes mellitus Current Visit: Yes Status: Chronic Qualifiers: Diabetes mellitus type: type 2 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: without usp use Diabetes mellitus complication status: with kidney complications Diabetes mellitus complication detail: with chronic kidney disease Chronic kidney disease stage: stage 3 (moderate) Qualified Code(s): E11.22 - Type 2 diabetes mellitus with diabetic chronic kidney disease; N18.3 - Chronic kidney disease, stage 3 (moderate) (6) Hypertension Current Visit: Yes Status: Chronic - Continue home meds Qualifiers: Hypertension type: essential hypertension Qualified Code(s): I10 - Essential (primary) hypertension Discussion w patient/family: The assessment and plan as outlined above was discussed with the patient and/or family members who expressed understanding and agreement. All questions were answered. Thank you for involving us in the care of your patient. Please call with any questions. Subjective Principal diagnosis: low hgb, nausea Interval history: Patient was seen and examined at bedside this morning. Family is present at bedside. Patient notably was noticed to be slurring speech and did not seem at baseline per family and Dr. Boykin who is patient's fnp. CT head was ordered and showed Patchy areas of small vessel ischemic changes are noted bilaterally, Asymmetric low density in the external capsule regions, left greater than right age indeterminate. 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 Patient reportedly improved from yesterday per family. Has no complaints of chest pain today but admits to some SOB which is improving from previous. Objective Vital Signs, Last 4 Hours Temp Pulse Resp BP Pulse Ox 10/08/17 12:00 98.1 F 68 28 138/62 94 10/08/17 10:49 98.3 F 60 15 156/56 91 General: Conversant, No Apparent Distress HEENT: Atraumatic, Normocephaly, Other (mildly dry mucus membranes) Neck: No JVD, Normal carotid pulses Cardiac: Reg Rate and Rhythm, Normal S1 and S2, Other (systolic murmur present) Lungs: Normal Breath Sounds, Other (decerased sounds at bases) Neuro: Alert and responsive, Other (some slurred speach) Abdomen: Soft, Non-Tender Skin: No rashes noted on visualized skin Musculoskeletal: No Chest Wall Tenderness Extremities: No Clubbing, No Cyanosis, No Edema Results 10/08/17 02:30 10/08/17 06:49 Lab Results 10/07/17 10/07/17 10/07/17 13:17 15:30 21:07 WBC Hgb Hct Plt Count APTT 25.0 L 99.0 H D Sodium Potassium Chloride Carbon Dioxide BUN Creatinine Glucose Calcium Troponin I 1.25 H* 10/07/17 10/08/17 10/08/17 22:00 02:30 02:30 WBC Hgb Hct Plt Count APTT 74.0 H Sodium Potassium Chloride Carbon Dioxide BUN Creatinine Glucose Calcium Troponin I 1.68 H* 1.56 H* 10/08/17 10/08/17 10/08/17 02:30 06:49 08:40 WBC 13.9 H Hgb 9.4 L Hct 29.0 L Plt Count 246 APTT 58.3 H Sodium 144 Potassium 3.4 L Chloride 114 H Carbon Dioxide 22 L BUN 38 H Creatinine 1.99 H Glucose 122 H Calcium 7.1 L Troponin I Consult Discharge Plan - Plan Referrals: Avel Linares MD [Primary Care Provider] - 10/20/17 2:30 pm () <Carlos Arce - Last Filed: 10/12/17 12:24> Date of Encounter: 10/12/17 Time of Encounter: 18:00 Assessment and Plan Discussion w patient/family: The assessment and plan as outlined above was discussed with the patient and/or family members who expressed understanding and agreement. All questions were answered. Thank you for involving us in the care of your patient. Please call with any questions. Objective Vital Signs, Last 4 Hours Temp Pulse Resp BP Pulse Ox 10/12/17 11:08 98.0 F 60 15 129/29 89 Results 10/12/17 09:49 10/12/17 08:32 Lab Results 10/12/17 10/12/17 10/12/17 08:32 08:32 09:49 WBC 9.0 Hgb 8.0 L Hct 24.5 L Plt Count 260 Sodium 145 Potassium 3.9 Chloride 106 Carbon Dioxide 28 BUN 77 H Creatinine 2.82 H Glucose 152 H Calcium 8.7 B-Natriuretic Peptide 1320 H - Attending Attestation I examined this patient and my medical decision-making was reviewed with the Resident Physician. I agree with the documented findings, disposition and treatment plan as described except to the extent set forth below. CC: Slurred speech Pts family at bedside reports had episodes of slurred speech prompting evaluation yesterday. He is reportedly better today, denies chest pain, pressure or shortness of breath. PTs and daughters at bedside report speech has improved, but he still seems slightly less conversant compared to baseline. ROS: Reviewed PMH: reviewed PE: pt seen and examined, agree with documentation IMP: 1. Slurred speech, improving, with family noting mildly abnormal mentation, abnormal CT, will consult Neuro, for possible MRI of brain, consult nephrology for further eval and recommendations prior to MRI 2. Elevated troponin: at baseline, does not appear significantly elevated, not a candidate for invasive strategy pending completion of neuro eval, appears to be elevated due to poor renal excretion with MINOR rather than acute ischemic event, will continue to monitor pending results of Neuro and Nephro eval. 3. Ischemic Cardiomyopathy, EF recovered to 55%, well compensated on current meds.
[2017-10-08] MEDS: *HR* Acetylcysteine 20% 600 MG/3 ML ORAL SYRINGE PO SCH ×2 (15:27→21:07)
--- NOTE | 2017-10-08 17:20 | Electrocardiograph Report ---
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
--- NOTE | 2017-10-08 17:55 | Electrocardiograph Report ---
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
--- NOTE | 2017-10-08 18:53 | Internal Med Progress Note ---
Date of Encounter: 10/08/17 Time of Encounter: 11:00 - Assessment and plan (1) Acute respiratory failure with hypoxia Current Visit: Yes Status: Acute Assessment and plan: Patient with acute hypoxic respiratory failure; suspect multifactorial in nature Chest x-ray showed severe perihilar and diffuse groundglass opacities with worsening pulmonary edema V/Q scan negative for pulmonary embolism but did show patchy bilateral pulmonary opacification concerns of edema versus infiltrates. Echocardiogram show LVEF of 55-60% with mild aortic stenosis and severe pulmonary hypertension with estimated RVSP of 63 mmHg Pulmonology consulted to continue IV antibiotics due to concerns for possible aspiration pneumonia Recommendations also to continue IV diuresis Will continue to monitor (2) NSTEMI (non-ST elevated myocardial infarction) Current Visit: Yes Status: Suspected Assessment and plan: Patient with elevated troponins 0.03-> 0.41-> 1.25-> 1.68-> 1.56 V/Q scan negative for pulmonary embolism Chest x-ray showed small bilateral pleural effusions Will continue IV Lasix Will continue heparin drip per cardiology recommendations Cardiology following and appreciate any additional recommendations (3) Speech abnormality Current Visit: Yes Status: Acute Assessment and plan: Family's concerns for patient's speech which has been "different" than normal On exam at bedside with family present, patient was able to communicate without any evidence of slurred speech and was able to find words appropriately just as on yesterday's exam on 10/07/17 Patient's bedside neurological exam, with family present at bedside, without any focal neurological findings on 10/07/17 CT of the head on 10/07/17 showed patchy areas of small vessel ischemic changes bilaterally with asymmetric low-density region in the external capsule, left greater than right with determine age. In addition a prior infarct of the left caudate head was noted. MRI cannot be done due to patient's pacemaker. Test findings discussed with neurologist, Dr. Andujar, with recommendations to continue Plavix and aspirin Dr. Andujar states that tPA not indicated for "change in speech" alone without focal neurological deficits which was noted as negative on 10/07/17 neurological exam; as there can be numerous etiologies for "change in speech" including shortness of breath/ hypoxia and dry oral mucosa. Will continue to monitor Qualifiers: Speech disturbance type: unspecified speech disturbance Qualified Code(s): R47.9 - Unspecified speech disturbances (4) Ischemic cardiomyopathy Current Visit: Yes Status: Acute Assessment and plan: Patient with history of CABG and pacemaker placement (5) Hypertension Current Visit: Yes Status: Chronic Assessment and plan: Blood pressure slightly elevated; continue home medications Qualifiers: Hypertension type: essential hypertension Qualified Code(s): I10 - Essential (primary) hypertension (6) Anemia Current Visit: Yes Status: Chronic Assessment and plan: Patient with chronic anemia and hemoglobin slightly below baseline at 9.7 today Workup with EGD on hold due to the above Qualifiers: Anemia type: unspecified type Qualified Code(s): D64.9 - Anemia, unspecified (7) DVT prophylaxis Current Visit: Yes Status: Acute Assessment and plan: Patient on heparin drip as above - Time Spent With Patient Total time spent is greater than 50% in coordination of care (as documented) at patient's floor/unit and/or counseling patient: - Subjective Interval history: Patient with acute shortness of breath and hypoxia overnight on supplemental oxygenation; he was given another dose of IV Lasix and breathing treatments overnight Patient this morning/afternoon on 2-5 liters of nasal cannula supplemental oxygen and was not in any respiratory distress Patient reported this afternoon that breathing had improved and was talking clearly without any slurred speech noted on exam - Constitutional Vitals: Temp Pulse Resp BP Pulse Ox 99.8 F H 69 15 144/62 92 10/08/17 14:21 10/08/17 14:21 10/08/17 14:21 10/08/17 14:21 10/08/17 14:21 General appearance: Present: mild distress, A&O X 3, no acute distress, answers questions appropriately - ENT ENT exam: Present: mucous membranes dry - Respiratory Respiratory exam: Present: CTAB. Absent: accessory muscle use, rales, rhonchi, wheezes - Cardiovascular Cardiovascular exam: Present: RRR, +S1, +S2. Absent: diastolic murmur, gallop, rubs, systolic murmur - Neurological Exam Neurological exam: Absent: no focal deficits, speech deficit - Psychiatric Psychiatric exam: Present: normal mood Internal Medicine: Result - Labs CBC & Chem 7: 10/08/17 02:30 10/08/17 06:49 Labs: Short CBC 10/08/17 Range/Units 02:30 WBC 13.9 H (4.3-11.1) K/mcL Hgb 9.4 L (12.9-16.9) g/dL Hct 29.0 L (37.5-50.1) % Plt Count 246 (140-400) K/mcL BMP 10/08/17 06:49 Sodium 144 Potassium 3.4 L Chloride 114 H Carbon Dioxide 22 L BUN 38 H Creatinine 1.99 H Glucose 122 H Calcium 7.1 L Cardiac Enzymes 10/07/17 10/08/17 Range/Units 22:00 02:30 Troponin I 1.68 H* 1.56 H* (< 0.04) ng/mL - ABG Interpretation ABG results: ABG ABG pH 7.38 pH Units (7.32-7.45) 10/07/17 10:36 ABG pCO2 44 mmHg (35-45) 10/07/17 10:36 ABG pO2 64 mmHg (85-104) L 10/07/17 10:36 ABG O2 Saturation 92 % (95-98) L 10/07/17 10:36 PT/INR, D-dimer PT 11.7 Seconds (9.4-12.1) 10/07/17 13:17 - Impressions Impressions Echocardiogram 10/07/17 14:41 Impressions: LVEF 55-60%. Normal LV chamber size and function. Mild concentric left ventricular hypertrophy. Indeterminate diastolic function. Atypical septal motion consistent with post-operative status. Normal right ventricular structure and function. Mild-moderate aortic regurgitation. Mild aortic stenosis. Mild-moderate mitral regurgitation. Mild-moderate tricuspid regurgitation. Severe pulmonary hypertension. Estimated RVSP is 63 mmHg. Left Ventricular Wall Motion: Rest Echo Findings All wall segments showed normal motion. Findings: Study Quality * Technically adequate exam. ECG Findings * Sinus rhythm with BBB. Left Ventricle * LVEF 55-60%. * Normal LV chamber size and function. * Mild concentric left ventricular hypertrophy. * Indeterminate diastolic function. * Atypical septal motion consistent with post-operative status. Right Ventricle * Normal right ventricular structure and function. Left Atrium * Moderately dilated left atrium. Right Atrium * Mildly dilated right atrium. Aortic Valve * Aortic valve not well visualized. * Mildly calcified aortic valve leaflets. * Mild-moderate aortic regurgitation. * Mild aortic stenosis. Mitral Valve * Mild mitral annular calcification * Mild-moderate mitral regurgitation. * No mitral stenosis. Tricuspid Valve * Normal tricuspid valve structure. * Mild-moderate tricuspid regurgitation. * Severe pulmonary hypertension. * Estimated RVSP is 63 mmHg. * Estimated RA pressure is 5 mmHg. Pulmonic Valve * Normal pulmonic valve structure. * Mild pulmonic regurgitation. Aorta * Normally sized aortic root. Pericardium * The pericardium appears normal. IVC * Normal IVC dimensions and inspiratory collapse. Pulmonary Artery * Normal visualized portions of the main pulmonary artery. Chest X-Ray 10/08/17 02:19 IMPRESSION: Severe perihilar and diffuse ground-glass opacities have increased from recent prior study. Rapid change would favor worsening pulmonary edema in association with CHF. Underlying pneumonitis cannot be definitively excluded. D/ / Yamil Rodriguez MD / Yamil Rodriguez MD Interpreting Provider: Yamil Rodriguez MD Consult Discharge Plan - Plan Referrals: Avel Linares MD [Primary Care Provider] -
[2017-10-08] MEDS: Heparin 25,000 UNIT/500 ML D5W 25,000 UNIT/500 ML BAG IVC SCH (23:37)
[2017-10-09 03:30] LABS: Basophils % 0.2 %; Eosinophils % 0.2 %; Hemoglobin 8.9 g/dL (12.9-16.9); Immature Granulocytes % 0.4 % (0-4); Lymphocytes # 1.1 K/mcL (0.6-4.6); Lymphocytes % 9.2 %; Mean Corpuscular Hemoglobin 31.3 pg (28.0-33.3); Mean Corpuscular Volume 95.1 fL (83.0-100.0); Mean Platelet Volume 10.4 fL (9.4-12.4); Monocytes # 0.9 K/mcL (0.0-1.3); Monocytes % 7.4 %; Neutrophils # 10.1 K/mcL (1.6-8.9); Platelet Count 245 K/mcL (140-400); Red Blood Count 2.84 M/mcL (4.19-5.50); Red Cell Distribution Width 13.4 % (11.5-14.5); Segmented Neutrophils % 82.6 %
[2017-10-09 03:49] LABS: Calcium 8.2 mg/dL (8.6-10.3); Potassium 3.7 mEq/L (3.5-5.1)
[2017-10-09] MEDS: Ipratropium/Albuterol Neb 3 ML IH PRN (04:10)
[2017-10-09] MEDS: *HR* Acetylcysteine 20% 600 MG/3 ML ORAL SYRINGE PO SCH ×2 (08:48→21:20)
[2017-10-09] MEDS: Isosorbide MONOnitrate (24 HR) 30 MG TAB.ER.24H PO SCH (08:48)
[2017-10-09] MEDS: amLODIPine 5 MG TABLET PO SCH (08:48)
[2017-10-09] MEDS: hydrALAZINE 25 MG TABLET PO SCH ×3 (08:48→21:19)
[2017-10-09] MEDS: Multivit/Ca/Min/Fe/FA 1 TAB TABLET PO SCH (08:48)
[2017-10-09] MEDS: Gabapentin 300 MG CAPSULE PO SCH ×3 (08:49→21:19)
[2017-10-09] MEDS: Aspirin Enteric Coated 81 MG Tablet PO SCH (08:49)
[2017-10-09] MEDS: Loratadine 10 MG TABLET PO SCH (08:49)
[2017-10-09] MEDS: Furosemide 40 MG/4 ML VIAL IVP SCH ×2 (08:50→21:19)
[2017-10-09] MEDS ORDERED: Cefepime HCl 2,000 MG in Water for inj. (sterile) 20 ML 20 ML IVP SCH (09:00)
--- NOTE | 2017-10-09 09:51 | Cardiology Progress Note ---
Date of Encounter: 10/09/17 Time of Encounter: 09:50 Assessment and Plan (1) Dyspnea Current Visit: Yes Status: Acute iv diuresis to 80mg lasix, strict IO (dotson in place now). Qualifiers: Dyspnea type: acute respiratory distress Qualified Code(s): R06.03 - Acute respiratory distress (2) NSTEMI (non-ST elevated myocardial infarction) Current Visit: Yes Status: Suspected EF preserved with no severe valvular disease - mild NSTEMI versus demand ischemia. Possible small CVA, recent, as well as history of CKD 4. He is a suboptimal candidate for [facility]. Would recommend continued medical management with aspirin/plavix, heparin x 24 additional hours. Mildly elevated troponin likely 2/2 CHF. (3) CKD (chronic kidney disease) Current Visit: Yes Status: Acute per nephrology Qualifiers: Chronic kidney disease stage: stage 4 (severe) Qualified Code(s): N18.4 - Chronic kidney disease, stage 4 (severe) (4) CAD (coronary artery disease) Current Visit: Yes Status: Acute Continue aspirin/plavix/bb/statin Qualifiers: Coronary Disease-Associated Artery/Lesion type: bypass graft [place] vs. transplanted heart: [place] heart Associated angina: with unstable angina Qualified Code(s): I25.700 - Atherosclerosis of coronary artery bypass graft(s) , unspecified, with unstable angina pectoris Discussion w patient/family: The assessment and plan as outlined above was discussed with the patient and/or family members who expressed understanding and agreement. All questions were answered. Thank you for involving us in the care of your patient. Please call with any questions. Subjective Principal diagnosis: low hgb, nausea Interval history: Hypoxia with dyspnea requiring BIPAP. No chest/jaw/arm discomfort. Objective Vital Signs, Last 4 Hours Temp Pulse Resp BP Pulse Ox 10/09/17 08:25 98.4 F 62 22 148/69 93 General: Conversant HEENT: Atraumatic Neck: No JVD Cardiac: Reg Rate and Rhythm Lungs: Other (bl crackles to mid field) Neuro: Alert and responsive Abdomen: Soft Skin: No rashes noted on visualized skin Musculoskeletal: No Chest Wall Tenderness Extremities: No Edema Results 10/09/17 03:20 10/09/17 03:20 Lab Results 10/08/17 10/08/17 10/09/17 14:58 20:30 02:30 WBC Hgb Hct Plt Count APTT 48.8 H 83.7 H D 66.4 H Sodium Potassium Chloride Carbon Dioxide BUN Creatinine Glucose Calcium Magnesium 10/09/17 10/09/17 10/09/17 03:20 03:20 03:20 WBC 12.2 H Hgb 8.9 L Hct 27.0 L Plt Count 245 APTT Sodium 142 Potassium 3.7 Chloride 106 Carbon Dioxide 26 BUN 51 H Creatinine 2.57 H Glucose 135 H Calcium 8.2 L Magnesium 1.9 10/09/17 08:30 WBC Hgb Hct Plt Count APTT 50.4 H Sodium Potassium Chloride Carbon Dioxide BUN Creatinine Glucose Calcium Magnesium - EKG Interpretation EKG results cardiology: personally reviewed, ventricular paced rhythm Consult Discharge Plan - Plan Referrals: Avel Linares MD [Primary Care Provider] -
--- NOTE | 2017-10-09 10:23 | Nephrology Progress Note ---
Date of Encounter: 10/09/17 Time of Encounter: 09:30 - Assessment and Plan (1) Pulmonary edema Current Visit: Yes Status: Acute His baseline level of renal function is typically stage IV CKD (not stage III) and so when his eGFR was near 32 earlier this week, it was likely dilutional from the IVF, which have been stopped. His dyspnea may be more than just pulmonary edema (i.e., cardiac component), but I would continue the Lasix 40mg IV BID again today. His I/Os have not been fully accurate d/t urinary incontience and he is asking for a dotson catheter. He voiced understanding the indication and risks vs benefits of potential infection with catheters, and so I have ordered a condom dotson catheter. I updated and discussed his care in detail with his floor RN as well. I answered all the questions from his family. Recommend decreasing the Gabapentin. With his recent acute neurologic change earlier this week and concerning CT Head, I do not want him to have any chance of acute encephalopathy from a renally cleared medication such as gabapentin - I 've decreased it to 300mg po qHS. The family has asked for a Neuro consult, which is very reasonable. Appreciate the primary team in de-escalating the Vanco which has not been stopped. His levels were not toxic I noted, at only 12, but it would still be less risky to his renal function to avoid nephrotoxins. Constipation: I recommend starting stool softeners. NSTEMI: I will not be able to add IVF to lessen the risks of the IV contrast, but I have empirically added NAC. If he were to need a LHC then proceed, however , his renal function may or may not decline. Continue to follow a renal protective strategy as able: dose Rx by eGFR, avoid NSAIDs, Bactrim and to follow strict I/Os plus dose renally cleared Rx by eGFR. Will close follow with you. Qualifiers: Chronicity: acute Qualified Code(s): J81.0 - Acute pulmonary edema (2) MINOR (acute kidney injury) Current Visit: No Status: Acute Trending back to stage IV with diuretics as expected though his SCr may worsen still yet. (3) CKD (chronic kidney disease), stage IV Current Visit: Yes Status: Chronic His CKD has been in the stage IV range, not stage III. (4) Abdominal pain Current Visit: Yes Status: Acute Appreciate GI Qualifiers: Abdominal location: unspecified location Qualified Code(s): R10.9 - Unspecified abdominal pain (5) Nausea & vomiting Current Visit: Yes Status: Acute Appreciate GI Qualifiers: Vomiting type: unspecified Vomiting Intractability: unspecified Qualified Code(s): R11.2 - Nausea with vomiting, unspecified (6) Hypertension Current Visit: Yes Status: Chronic Avoiding an ODIN or ARB d/t his renal problems as described above. Qualifiers: Hypertension type: essential hypertension Qualified Code(s): I10 - Essential (primary) hypertension (7) NSTEMI (non-ST elevated myocardial infarction) Current Visit: Yes Status: Suspected Appreciate Cardiology Subjective Principal diagnosis: low hgb, nausea Interval history: Pt was seen and examined. His family was present and he had been moved to a larger room. He voiced that he is still very short of breath but did not affirm N/V/D. He in fact reported having constipation. He has not had an MRI d/t a pacermaker, his daughter reported. We discussed that his last BM was a few days ago; and that he's typically more regular. Objective - Vital Signs Vital signs: Vital Signs Temp Pulse Resp BP Pulse Ox 10/09/17 08:25 98.4 F 62 22 148/69 93 10/09/17 04:32 98.1 F 60 16 132/60 94 10/09/17 04:17 16 95 10/08/17 22:41 98.9 F 60 16 128/60 95 10/08/17 21:04 93 10/08/17 20:32 20 90 10/08/17 19:43 98.5 F 61 16 131/58 96 10/08/17 14:21 99.8 F H 69 15 144/62 92 10/08/17 12:00 98.1 F 68 28 138/62 94 10/08/17 10:49 98.3 F 60 15 156/56 91 Intake and Output 10/08/17 10/09/17 10/09/17 23:59 07:59 15:59 Intake Total 224.2 / 224.2 69.3 / 69.3 Balance 224.2 / 224.2 69.3 / 69.3 Intake: IV Fluids 224.2 / 224.2 69.3 / 69.3 Heparin 25,000 UNIT/500 ML D5W 224.2 / 224.2 69.3 / 69.3 25,000 unit In 500 ml @ 12 UNIT /KG/HR 16.92 mls/hr IVC .Q24H MARYANN Rx#:[id number] Other: Meal NPO # Urine Diapers 1 Weight 71.3 kg Blood Glucose* 132 116 Patient Weight 10/09/17 23:59 Weight 71.3 kg - General Appearance General appearance: Present: appears started age, fatigue, frail EENT: Present: ATNC, PERRL, mucous membranes moist Neck: Present: supple Respiratory: Present: wheezing, course breath sounds Cardiology: Present: no edema, regular rate, regular rhythm, normal S1, normal S2 Gastrointestinal: Present: normoactive bowel sounds, no tenderness, no guarding Integumentary: Present: warm and dry, ecchymotic Neurologic: Present: no focal deficit, no asterixis Additional Comments: Hard of hearing Musculoskeletal: Present: no cyanosis, no clubbing Psychiatric: Present: mood/affect appropriate, cooperative - Lab 10/09/17 03:20 10/09/17 03:20 Most recent lab results ABG pH 7.38 pH Units (7.32-7.45) 10/07/17 10:36 ABG pCO2 44 mmHg (35-45) 10/07/17 10:36 ABG pO2 64 mmHg (85-104) L 10/07/17 10:36 ABG HCO3 26 mEq/L (21-27) 10/07/17 10:36 ABG O2 Saturation 92 % (95-98) L 10/07/17 10:36 Calcium 8.2 mg/dL (8.6-10.3) L 10/09/17 03:20 Magnesium 1.9 mg/dL (1.6-2.6) 10/09/17 03:20 Consult Discharge Plan - Plan Referrals: Avel Linares MD [Primary Care Provider] -
[2017-10-09] MEDS: *HR* Heparin 5,000 UNIT/ML VIAL IVP PRN (10:40)
[2017-10-09] MEDS: Ampicillin/Sulbactam 1,500 MG in 0.9 % Sodium Chloride Mini Bag 100 ML IVPB SCH ×2 (11:11→18:12)
[2017-10-09] MEDS: Sennosides 8.6 MG TABLET PO SCH ×2 (11:12→21:19)
[2017-10-09] MEDS ORDERED: Furosemide 80 MG in 0.9 % Sodium Chloride 50 ML IVPB ONE (11:17)
--- NOTE | 2017-10-09 11:57 | Neurology - Consult Note ---
Date of Encounter: 10/09/17 Time of Encounter: 11:54 Assessment and Plan (1) Slurred speech Current Visit: Yes Status: Acute This is an 87 year old man with multiple medical conditions including CKD, HTN, CAD, carotid artery disease, history of prior lacunar infarct evidenced on CT of head who developed persistent nausea and epigastric pain, found to have NSTEMI, acute respiratory failure with hypoxemia which are acute in nature. The occurrence of 'thickened speech' correlated with development of dyspnea and improved as breathing conditions improve without any other focal neurological deficits. Although the patient does have multiple risk factors for CVA, especially small vessel lacunar infarct it is felt that new stroke is unlikely. He can not get MRI therefore a small lacunar infarct can not be excluded. Patient is already on Aspirin 81 and clopidogrel 75mg daily. Echocardiography showed no significant abnormality that would require additional therapy therefore would recommend continuing aspirin and clopidogrel without any changes. Risk factor management for CVA. Please continue medical and supportive. Will sign off at this time. please call if any questions. Total time spend in this case is approximately 50 minutes. History of Present Illness Chief complaint: slurred speech HPI: Mr. Avendaño is a 87 year old male with PMH significant for CKD, HTN, Gout, anemia due to chronic kidney disease, hypothyroidism, cardiac pacemaker placement, CAD, claudication who presented initially on 10/05/2017 due to persistent nausea. He sent from his information resources director's office due to complaint of persistent nausea. over the last few days he was evaluated by information resources director, plate mounter and laborer rags and found to have renal failure, acute respiratory failure with hypoxemia and ischemic cardiomyopathy. Neurology was consulted last night due to him having an episode of slurred speech. Patient's daughter relates that this happened yesterday morning when the patient developed shortness of breath and had to use oxygen. It was not a actually slurred speech but 'thickened speech' and when the patient was examined there was no other focal neurological deficits and after the breathing difficulty improved his speech improved. The patient was determined not to be a tPA candidate due to lack of significant neurological deficits and he did complete CT of head which showed no acute intracranial abnormality but some chronic ischemic/age indeterminate focal low intensity noted as well as evidence of old lacunar infarct at the left caudate. Currently the patient laying in bed with mask on but fully awake and alert and he is able to repeat and speech appears fluent. Past Med Surg Social Fam HX - Past Medical History Medical history: CHF, coronary artery disease, diabetes, GERD, hyperlipidemia, hypertension, kidney stones, myocardial infarction, renal disease, thyroid disease Additional medical history: anemia, peptic ulcer, sleep apnea, bradycardia, gout Psychiatric history: depression - Past Surgical History Surgical History: cholecystectomy, coronary bypass (CABG), pacemaker/AICD Additional surgical history: 2 heart stents, sinus surgery - Social History Smoking Status: Former smoker Smokeless Tobacco Status: No Alcohol use: none Drug use: none - Family History Mother Living Status: Hx Family Cardiac Disorders: Yes Father Living Status: Hx Family Cardiac Disorders: Yes Sister Living Status: Hx Family Cardiac Disorders: Yes (cardiac dx) Brother Living Status: Hx Family Cancer: Yes (colon) Medications and Allergies Amlodipine Besylate 10 mg PO DAILY 08/20/17 [History] Aspirin [Lo-Dose Aspirin EC] 81 mg PO DAILY 08/20/17 [History] Atenolol [Tenormin] 50 mg PO DAILY 08/20/17 [History] Atorvastatin Calcium [Lipitor] 80 mg PO HS 08/20/17 [History] Calcitriol [Rocaltrol] 0.25 mcg PO DAILY 08/20/17 [History] Cetirizine HCl [All Day Allergy] 10 mg PO DAILY 08/20/17 [History] Clopidogrel [Plavix] 75 mg PO DAILY 08/20/17 [History] Febuxostat [Uloric] 40 mg PO DAILY 08/20/17 [History] Gabapentin [Neurontin] 300 mg PO QAM 08/20/17 [History] Gabapentin [Neurontin] 600 mg PO HS 08/20/17 [History] Ipratropium Manning 1 spr NS BID 08/20/17 [History] Levothyroxine [Synthroid] 50 mcg PO 0630 08/20/17 [History] Mirabegron [Myrbetriq] 50 mg PO DAILY 08/20/17 [History] [place]-3/Dha/Epa/Fish Oil [Fish Oil 500 mg Softgel] 1 cap PO DAILY 08/20/17 [ History] Isosorbide MONOnitrate (24 HR) [Imdur] 30 mg PO DAILY #30 tab.er.24h 08/22/17 [ Rx] Nitroglycerin [Nitrostat] 0.4 mg SL Q5MIN PRN #30 tab.subl 08/22/17 [Rx] Pantoprazole Sodium 40 mg PO DAILY #30 tablet.dr 08/22/17 [Rx] Ondansetron ODT [Zofran ODT] 4 mg SL Q4HR PRN #14 tab.rapdis 09/25/17 [Rx] Acetaminophen [Tylenol] 650 mg PO Q6HR PRN tablet 09/30/17 [Rx] Docusate [Colace] 100 mg PO DAILY PRN capsule 09/30/17 [Rx] Multivit/Ca/Min/Fe/FA [Thera M Plus] 1 tab PO DAILY tablet 09/30/17 [Rx] hydrALAZINE [HydrALAZINE] 25 mg PO Q8HR 30 Days #90 tablet 09/30/17 [Rx] hydroCHLOROthiazide [Hydrochlorothiazide] 25 mg PO DAILY 10/05/17 [History] 3 Allergy/AdvReac Type Severity Reaction Status Date / Time tape AdvReac skin Uncoded 10/05/17 09:11 breakdown All Systems: The remainder of the systems were reviewed and are negative Physical Examination - Vital Signs Vital Signs: Initial Vital Signs Temp Pulse Resp BP Pulse Ox 97.7 F 60 18 149/60 96 10/05/17 09:08 10/05/17 09:08 10/05/17 09:08 10/05/17 09:08 10/05/17 09:08 - Constitutional General appearance: chronically ill - Neurologic Sensorimotor examination: intact (Grossly intact) Detailed motor examination: grossly full strength in all extremities (Paitent is able to move all extremities, hand advertising agency manager appear normal and symmetrical) Detailed sensory examination: intact (Grossly intact) Posture: other (None) Reflex and gait examination: other (Gait not tested.) Reflexes: Biceps: 1+, Triceps: 1+, Brachioradialis: 1+, Patella: 1+, Achilles: 1 + Mental Status Examination: awake, alert, oriented to person, oriented to place, oriented to time, follows commands appropriately, answers questions appropriately, no agnosia, no aphasia, no aproxia Cranial nerve examination: PERRL, EOMI, visual lyles intact, corneal reflexes brisk symmetrically, sensory to face intact, mastication intact, no facial asymmetry is present, no dysarthria, hearing is intact symmetrically, soft palate elevates bilaterally upon phonation, gag reflex intact, flexes SCM and trapezius muscles symmetrically with full power, tongue protrudes midline, no atrophy or facial fasiculations present Results - Laboratory Findings CBC and BMP: 10/09/17 03:20 10/09/17 03:20 Abnormal lab findings: Abnormal lab results WBC 12.2 K/mcL (4.3-11.1) H 10/09/17 03:20 RBC 2.84 M/mcL (4.19-5.50) L 10/09/17 03:20 Hgb 8.9 g/dL (12.9-16.9) L 10/09/17 03:20 Hct 27.0 % (37.5-50.1) L 10/09/17 03:20 Neutrophils # 10.1 K/mcL (1.6-8.9) H 10/09/17 03:20 APTT 50.4 Seconds (26.0-36.0) H 10/09/17 08:30 ABG pO2 64 mmHg (85-104) L 10/07/17 10:36 ABG Total CO2 27 mEq/L (20-26) H 10/07/17 10:36 ABG O2 Saturation 92 % (95-98) L 10/07/17 10:36 BUN 51 mg/dL (8-23) H 10/09/17 03:20 Creatinine 2.57 mg/dL (0.70-1.30) H 10/09/17 03:20 Est GFR ( Amer) 29 (> 60) L 10/09/17 03:20 Est GFR (Non-Af Amer) 24 (> 60) L 10/09/17 03:20 Glucose 135 mg/dL (70-105) H 10/09/17 03:20 POC Glucose 116 mg/dL (70-99) H 10/09/17 08:27 Calculated Osmolality 310 (280-300) H 10/09/17 03:20 Calcium 8.2 mg/dL (8.6-10.3) L 10/09/17 03:20 Troponin I 1.56 ng/mL (< 0.04) H* 10/08/17 02:30 B-Natriuretic Peptide 796 pg/mL (Less than 100) H 10/06/17 00:58 Serum Total Protein 5.6 g/dL (6.4-8.9) L 10/06/17 00:58 Albumin 3.1 g/dL (3.5-5.7) L 10/06/17 00:58 Urine Protein 100 mg/dL (Neg-Trace) H 10/05/17 10:00 Vancomycin Trough 12 mcg/mL (5-10) H 10/09/17 03:20 - Diagnostic Findings Additional findings: CT OF THE HEAD WITHOUT CONTRAST 10/07/2017 6:10 pm TECHNIQUE: CT of the head was performed without the administration of intravenous contrast. Dose modulation, iterative reconstruction, and/or weight based adjustment of the mA/kV was utilized to reduce the radiation dose to as low as reasonably achievable. COMPARISON: None. HISTORY: ORDERING SYSTEM PROVIDED HISTORY: difficult speech Additional tech notes: tk FINDINGS: BRAIN/VENTRICLES: Ventricles and sulci are prominent. Ventricles are midline. Multiple images are limited due to artifact. Vascular calcifications are noted. Faint high density near the left middle cerebral artery in the sylvian fissure on the left is noted on axial image 20. Artifact is favored over thrombus. Patchy areas of low density are noted bilaterally in the periventricular and subcortical white matter. External capsule low densities are noted, left greater than right. Focal low density in the lateral aspect of left lentiform nucleus is centered on image 23. Focal low density in the left caudate head is noted. ORBITS: The visualized portion of the orbits demonstrate no acute abnormality. SINUSES: The visualized paranasal sinuses and mastoid air cells demonstrate no acute abnormality. SOFT TISSUES/SKULL: No acute abnormality of the visualized skull or soft tissues. CT/CT head/brain wo con IMPRESSION: Patchy areas of small vessel ischemic changes are noted bilaterally Asymmetric low density in the external capsule regions, left greater than right. This is age indeterminate. Low-density in the left lateral lentiform nucleus region either represents sequela of prior lacunar infarct or dilated perivascular space Prior infarct in the left caudate head If clinical symptoms continue, consider MRI D/ / Lionel Marsh / Lionel Marsh Interpreting Provider: Lionel Marsh /EV echocardiogram Impressions: LVEF 55-60%. Normal LV chamber size and function. Mild concentric left ventricular hypertrophy. Indeterminate diastolic function. Atypical septal motion consistent with post-operative status. Normal right ventricular structure and function. Mild-moderate aortic regurgitation. Mild aortic stenosis. Mild-moderate mitral regurgitation. Mild-moderate tricuspid regurgitation. Severe pulmonary hypertension. Estimated RVSP is 63 mmHg. Consult Discharge Plan - Plan Referrals: Avel Linares MD [Primary Care Provider] -
--- NOTE | 2017-10-09 13:24 | Pulmonology Progress Note ---
Date of Encounter: 10/09/17 Time of Encounter: 09:50 Assessment and Plan (1) Acute respiratory failure with hypoxia Current Visit: Yes Status: Acute This is most likely pulmonary edema and patient will need more aggressive diuresis. I have discussed this with the coal trimmer and also primary team who will contact nephrology regarding diuretic dose since he has chronic kidney disease. Chest x-ray also consistent with pulmonary edema. Noninvasive ventilation is reasonable and to keep SPO2 around 92%. Have discussed this with the family at the bedside. (2) Pulmonary edema Current Visit: Yes Status: Acute Patient will need more aggressive diuresis. Qualifiers: Chronicity: acute Qualified Code(s): J81.0 - Acute pulmonary edema Subjective Principal diagnosis: low hgb, nausea Interval history: Patient requirement for oxygen has increased and he was placed on noninvasive ventilation. There is also slurred speech noticed. Objective PUL Vital signs: Last Vital Signs Temp 98.1 F 10/09/17 11:36 Pulse 60 10/09/17 11:36 Resp 18 10/09/17 11:36 BP 130/55 10/09/17 11:36 Pulse Ox 95 10/09/17 11:36 General appearance: no acute distress Eyes: nonicteric ENT: oropharynx dry Neck: supple Effort: normal Auscultation: bilateral: rales Percussion: bilateral: not dull Cardiovascular: regular rate and rhythm Gastrointestinal: normoactive bowel sounds, non-distended Extremities: no cyanosis normal mental status mood appropriate Results - Laboratory Findings CBC and BMP: 10/09/17 03:20 10/09/17 03:20 ABG ABG pH 7.38 pH Units (7.32-7.45) 10/07/17 10:36 ABG pCO2 44 mmHg (35-45) 10/07/17 10:36 ABG pO2 64 mmHg (85-104) L 10/07/17 10:36 ABG O2 Saturation 92 % (95-98) L 10/07/17 10:36 PT/INR, D-dimer PT 11.7 Seconds (9.4-12.1) 10/07/17 13:17 Abnormal lab findings: Abnormal lab results WBC 12.2 K/mcL (4.3-11.1) H 10/09/17 03:20 RBC 2.84 M/mcL (4.19-5.50) L 10/09/17 03:20 Hgb 8.9 g/dL (12.9-16.9) L 10/09/17 03:20 Hct 27.0 % (37.5-50.1) L 10/09/17 03:20 Neutrophils # 10.1 K/mcL (1.6-8.9) H 10/09/17 03:20 APTT 50.4 Seconds (26.0-36.0) H 10/09/17 08:30 ABG pO2 64 mmHg (85-104) L 10/07/17 10:36 ABG Total CO2 27 mEq/L (20-26) H 10/07/17 10:36 ABG O2 Saturation 92 % (95-98) L 10/07/17 10:36 BUN 51 mg/dL (8-23) H 10/09/17 03:20 Creatinine 2.57 mg/dL (0.70-1.30) H 10/09/17 03:20 Est GFR ( Amer) 29 (> 60) L 10/09/17 03:20 Est GFR (Non-Af Amer) 24 (> 60) L 10/09/17 03:20 Glucose 135 mg/dL (70-105) H 10/09/17 03:20 POC Glucose 162 mg/dL (70-99) H 10/09/17 11:36 Calculated Osmolality 310 (280-300) H 10/09/17 03:20 Calcium 8.2 mg/dL (8.6-10.3) L 10/09/17 03:20 Troponin I 1.56 ng/mL (< 0.04) H* 10/08/17 02:30 B-Natriuretic Peptide 796 pg/mL (Less than 100) H 10/06/17 00:58 Serum Total Protein 5.6 g/dL (6.4-8.9) L 10/06/17 00:58 Albumin 3.1 g/dL (3.5-5.7) L 10/06/17 00:58 Urine Protein 100 mg/dL (Neg-Trace) H 10/05/17 10:00 Vancomycin Trough 12 mcg/mL (5-10) H 10/09/17 03:20 - Diagnostic Findings Chest x-ray: report reviewed, image reviewed - Clinical Findings Intake & Output: Intake & Output 10/08/17 10/09/17 10/09/17 23:59 07:59 15:59 Intake Total 224.2 / 224.2 69.3 / 69.3 414 / 414 Output Total 0 / 0 Balance 224.2 / 224.2 69.3 / 69.3 414 / 414 Weight 71.3 kg Consult Discharge Plan - Plan Referrals: Avel Linares MD [Primary Care Provider] -
[2017-10-09] MEDS: Heparin 25,000 UNIT/500 ML D5W 25,000 UNIT/500 ML BAG IVC SCH (14:17)
[2017-10-09 16:44] LABS: Heparin anti-factor XA UFH 0.56 IU/mL (0.30-0.70)
--- NOTE | 2017-10-09 18:10 | Internal Med Progress Note ---
Date of Encounter: 10/09/17 Time of Encounter: 10:00 - Assessment and plan (1) Acute respiratory failure with hypoxia Current Visit: Yes Status: Acute Assessment and plan: Patient with acute hypoxic respiratory failure; suspect multifactorial in nature Chest x-ray showed severe perihilar and diffuse groundglass opacities with worsening pulmonary edema V/Q scan negative for pulmonary embolism but did show patchy bilateral pulmonary opacification concerns of edema versus infiltrates. Echocardiogram show LVEF of 55-60% with mild aortic stenosis and severe pulmonary hypertension with estimated RVSP of 63 mmHg 10/09/17: Patient with continued respiratory distress this morning and chest x- ray consistent with pulmonary edema Will increase dose of IV Lasix for this afternoon Patient also with persistent infiltrate suspicious for possible aspiration pneumonia; vancomycin/cefepime discontinued this morning and patient started on Unasyn Pulmonology following and appreciate recommendations (2) NSTEMI (non-ST elevated myocardial infarction) Current Visit: Yes Status: Suspected Assessment and plan: Patient with elevated troponins 0.03-> 0.41-> 1.25-> 1.68-> 1.56 V/Q scan negative for pulmonary embolism Chest x-ray showed small bilateral pleural effusions 10/09/17 Will continue heparin drip for another 24 hours per cardiology recommendations Cardiology following and appreciate any additional recommendations (3) Ischemic cardiomyopathy Current Visit: Yes Status: Acute Assessment and plan: Patient with history of CABG and pacemaker placement Continue Plavix and aspirin (4) Speech abnormality Current Visit: Yes Status: Acute Assessment and plan: Family's concerns for patient's speech which has been "different" than normal On exam at bedside with family present, patient was able to communicate without any evidence of slurred speech and was able to find words appropriately just as on yesterday's exam on 10/07/17 Patient's bedside neurological exam, with family present at bedside, without any focal neurological findings on 10/07/17 CT of the head on 10/07/17 showed patchy areas of small vessel ischemic changes bilaterally with asymmetric low-density region in the external capsule, left greater than right with determine age. In addition a prior infarct of the left caudate head was noted. MRI cannot be done due to patient's pacemaker. Test findings discussed with neurologist, Dr. Andujar, with recommendations to continue Plavix and aspirin Dr. Andujar states that tPA not indicated for "change in speech" alone without focal neurological deficits which was noted as negative on 10/07/17 neurological exam; as there can be numerous etiologies for "change in speech" including shortness of breath/ hypoxia and dry oral mucosa. Dr. Andujar evaluated patient today and agrees with above Qualifiers: Speech disturbance type: unspecified speech disturbance Qualified Code(s): R47.9 - Unspecified speech disturbances (5) Hypertension Current Visit: Yes Status: Chronic Assessment and plan: Blood pressure slightly elevated; continue home medications Qualifiers: Hypertension type: essential hypertension Qualified Code(s): I10 - Essential (primary) hypertension (6) Anemia Current Visit: Yes Status: Chronic Assessment and plan: Patient with chronic anemia and hemoglobin slightly below baseline at 9.7 today Workup with EGD on hold due to the above Qualifiers: Anemia type: unspecified type Qualified Code(s): D64.9 - Anemia, unspecified (7) DVT prophylaxis Current Visit: Yes Status: Acute Assessment and plan: Patient on heparin drip as above - Time Spent With Patient Total time spent is greater than 50% in coordination of care (as documented) at patient's floor/unit and/or counseling patient: - Subjective Interval history: Patient still in respiratory distress this a.m. and had be placed on BiPAP Chest x-ray consistent with pulmonary edema - Constitutional Vitals: Temp Pulse Resp BP Pulse Ox 98.3 F 59 18 132/58 31 10/09/17 15:07 10/09/17 15:07 10/09/17 15:07 10/09/17 15:07 10/09/17 15:07 General appearance: Present: mild distress, A&O X 3, no acute distress, answers questions appropriately - Respiratory Respiratory exam: Present: respiratory distress - Cardiovascular Cardiovascular exam: Present: RRR, +S1, +S2. Absent: diastolic murmur, gallop, rubs, systolic murmur Internal Medicine: Result - Labs CBC & Chem 7: 10/09/17 03:20 10/09/17 03:20 Labs: Short CBC 10/09/17 Range/Units 03:20 WBC 12.2 H (4.3-11.1) K/mcL Hgb 8.9 L (12.9-16.9) g/dL Hct 27.0 L (37.5-50.1) % Plt Count 245 (140-400) K/mcL Neutrophils # 10.1 H (1.6-8.9) K/mcL BMP 10/09/17 03:20 Sodium 142 Potassium 3.7 Chloride 106 Carbon Dioxide 26 BUN 51 H Creatinine 2.57 H Glucose 135 H Calcium 8.2 L - ABG Interpretation ABG results: ABG ABG pH 7.38 pH Units (7.32-7.45) 10/07/17 10:36 ABG pCO2 44 mmHg (35-45) 10/07/17 10:36 ABG pO2 64 mmHg (85-104) L 10/07/17 10:36 ABG O2 Saturation 92 % (95-98) L 10/07/17 10:36 PT/INR, D-dimer PT 11.7 Seconds (9.4-12.1) 10/07/17 13:17 - Impressions Impressions Chest X-Ray 10/09/17 10:43 IMPRESSION: Persistent bilateral perihilar and lower lobe airspace changes which could represent edema or infiltrates. Small bilateral effusions. Follow up to resolution is suggested. Pacemaker. D/ / 10/09/2017 11:21:36 Elisha Maxwell MD / earnold Interpreting Provider: Elisha Maxwell MD Consult Discharge Plan - Plan Referrals: Avel Linares MD [Primary Care Provider] -
[2017-10-10] MEDS: *HR* Heparin 5,000 UNIT/ML VIAL IVP PRN (01:53)
[2017-10-10 04:18] LABS: Basophils % 0.4 %; Eosinophils # 0.2 K/mcL (0.0-0.6); Eosinophils % 1.8 %; Hematocrit 22.9 % (37.5-50.1); Hemoglobin 7.7 g/dL (12.9-16.9); Immature Granulocytes % 0.4 % (0-4); Lymphocytes # 1.2 K/mcL (0.6-4.6); Mean Corpuscular HGB Conc 33.6 g/dL (31.6-35.5); Mean Corpuscular Volume 92.3 fL (83.0-100.0); Mean Platelet Volume 10.7 fL (9.4-12.4); Monocytes # 0.6 K/mcL (0.0-1.3); Monocytes % 6.5 %; Neutrophils # 6.5 K/mcL (1.6-8.9); Platelet Count 209 K/mcL (140-400); Red Blood Count 2.48 M/mcL (4.19-5.50); Red Cell Distribution Width 13.3 % (11.5-14.5); Segmented Neutrophils % 76.9 %
[2017-10-10 04:28] LABS: Albumin 2.6 g/dL (3.5-5.7); Magnesium 1.6 mg/dL (1.6-2.6); Potassium 3.1 mEq/L (3.5-5.1)
[2017-10-10] MEDS: Ampicillin/Sulbactam 1,500 MG in 0.9 % Sodium Chloride Mini Bag 100 ML IVPB SCH (05:56)
[2017-10-10] MEDS: Isosorbide MONOnitrate (24 HR) 30 MG TAB.ER.24H PO SCH (07:47)
[2017-10-10] MEDS: Aspirin Enteric Coated 81 MG Tablet PO SCH (07:47)
[2017-10-10] MEDS: Sennosides 8.6 MG TABLET PO SCH ×2 (07:47→21:09)
[2017-10-10] MEDS: hydrALAZINE 25 MG TABLET PO SCH ×3 (07:47→21:09)
[2017-10-10] MEDS: amLODIPine 5 MG TABLET PO SCH (07:47)
[2017-10-10] MEDS: Multivit/Ca/Min/Fe/FA 1 TAB TABLET PO SCH (07:47)
[2017-10-10] MEDS: Furosemide 40 MG/4 ML VIAL IVP SCH ×2 (07:48→21:09)
[2017-10-10] MEDS: Loratadine 10 MG TABLET PO SCH (07:48)
[2017-10-10] MEDS ORDERED: Aminoglycoside Consult 1 EACH MC ONE (08:48)
[2017-10-10] MEDS: *HR* Acetylcysteine 20% 600 MG/3 ML ORAL SYRINGE PO SCH ×2 (08:57→21:52)
[2017-10-10] MEDS ORDERED: Furosemide 80 MG in 0.9 % Sodium Chloride 50 ML IVPB ONE (09:23)
[2017-10-10] MEDS: Magnesium Oxide 400 MG TABLET PO SCH ×2 (09:52→21:10)
[2017-10-10] MEDS ORDERED: Isosorbide MONOnitrate (24 HR) 60 MG TAB.ER.24H PO STA (11:03)
--- NOTE | 2017-10-10 11:35 | Nephrology Progress Note ---
Date of Encounter: 10/10/17 Time of Encounter: 09:30 - Assessment and Plan (1) Pulmonary edema Current Visit: Yes Status: Acute More lasix will be needed again today as he started to respond with 120mg per day of IV lasix, which I've ordered for today via 40mg IV BID plus an additional one time Lasix 80mg IV. Hgb dropping. He is on a heparin gtt and early during this hospitalization he was about to have endoscopy for a potential GIB but his dyspnea worsened. I've ordered Aranesp, but he may need transfusion soon. Currently 7.7. I've ordered a FOBT and provided stool softners (he's been constipated). Hypokalemia and hypomagn: most likely from the diuretics. Agree with the one time KCl and I've ordered oral mag today. Slowly worsening renal function as expected, but hopefully tomorrow the diuretics can be scaled back. Elevated troponin: appreciate Cardio Cont to renally dose and avoid nephrotoxins as able. I met with the family and answered all their questions. Will close follow with you. Qualifiers: Chronicity: acute Qualified Code(s): J81.0 - Acute pulmonary edema (2) MINOR (acute kidney injury) Current Visit: No Status: Acute See above (3) CKD (chronic kidney disease), stage IV Current Visit: Yes Status: Chronic His CKD has been in the stage IV range, not stage III. (4) Abdominal pain Current Visit: Yes Status: Acute Appreciate GI Qualifiers: Abdominal location: unspecified location Qualified Code(s): R10.9 - Unspecified abdominal pain (5) Hypertension Current Visit: Yes Status: Chronic Avoiding an ODIN or ARB d/t his renal problems as described above. Qualifiers: Hypertension type: essential hypertension Qualified Code(s): I10 - Essential (primary) hypertension (6) Hypokalemia Current Visit: Yes Status: Acute See above (7) Hypomagnesemia Current Visit: Yes Status: Acute See above (8) Anemia Current Visit: Yes Status: Chronic See above Qualifiers: Anemia type: unspecified type Qualified Code(s): D64.9 - Anemia, unspecified Subjective Principal diagnosis: low hgb, nausea Interval history: Pt was seen and examined in the 2N room. His family was present. He did not affirm N/V today and has started to eat more. He voiced feeling slightly less shortness of breath. Objective - Vital Signs Vital signs: Vital Signs Temp Pulse Resp BP Pulse Ox 10/10/17 10:22 138/54 10/10/17 07:07 99.4 F 63 19 138/54 87 10/10/17 04:45 100.4 F H 59 26 140/59 95 10/10/17 00:06 98.1 F 60 20 142/56 93 10/09/17 23:40 60 10/09/17 21:00 62 10/09/17 20:35 98.3 F 59 18 141/53 91 10/09/17 15:07 98.3 F 59 18 132/58 31 10/09/17 11:36 98.1 F 60 18 130/55 95 Intake and Output 10/09/17 10/10/17 10/10/17 23:59 07:59 15:59 Intake Total 270 / 270 561 / 561 200 / 200 Output Total 1500 / 1500 Balance 270 / 270 -939 / -939 200 / 200 Intake: IV Fluids 150 / 150 161 / 161 Heparin 25,000 UNIT/500 ML D5W 50 / 50 161 / 161 25,000 unit In 500 ml @ 12 UNIT /KG/HR 16.92 mls/hr IVC .Q24H MARYANN Rx#:[id number] Unasyn 1,500 mg In 0.9 % Sodium 100 / 100 Chloride (Mini-Bag +) 100 ML @ 200 mls/hr IVPB Q12HR MARYANN Rx#: [id number] Oral 120 / 120 400 / 400 200 / 200 Output: Catheter 1500 / 1500 Other: Meal Lunch Breakfast Percent of Meal Consumed 35% 95% Weight 71.9 kg Blood Glucose* 129 124 Patient Weight 10/10/17 23:59 Weight 71.9 kg - General Appearance General appearance: Present: well-developed, well-nourished, appears started age , frail EENT: Present: ATNC, PERRL, mucous membranes moist Neck: Present: supple Additional Comments: basilar crackles but slightly improved as compared to yesterday Cardiology: Present: no edema, regular rate, normal S1, normal S2 Gastrointestinal: Present: normoactive bowel sounds, no tenderness, no guarding , no organomegaly Integumentary: Present: no rash, warm and dry Neurologic: Present: no focal deficit, no asterixis, alert and oriented x3 (and generally symmetrical muscle strength except his LUE was slightly weaker than the RUE. ) Musculoskeletal: Present: no deformities, no erythema Psychiatric: Present: mood/affect appropriate, cooperative - Lab 10/10/17 04:00 10/10/17 04:00 Most recent lab results ABG pH 7.38 pH Units (7.32-7.45) 10/07/17 10:36 ABG pCO2 44 mmHg (35-45) 10/07/17 10:36 ABG pO2 64 mmHg (85-104) L 10/07/17 10:36 ABG HCO3 26 mEq/L (21-27) 10/07/17 10:36 ABG O2 Saturation 92 % (95-98) L 10/07/17 10:36 Calcium 8.0 mg/dL (8.6-10.3) L 10/10/17 04:00 Magnesium 1.6 mg/dL (1.6-2.6) 10/10/17 04:00 Consult Discharge Plan - Plan Referrals: Avel Linares MD [Primary Care Provider] -
--- NOTE | 2017-10-10 13:18 | Cardiology Progress Note ---
Date of Encounter: 10/10/17 Time of Encounter: 13:15 Assessment and Plan (1) Dyspnea Current Visit: Yes Status: Acute iv diuresis maintain negative fluid balance, strict IO (dotson in place now). close monitoring of renal function. Multifactorial? Has fever and WBC, on antibiotics for PNA History of asbestosis Qualifiers: Dyspnea type: acute respiratory distress Qualified Code(s): R06.03 - Acute respiratory distress (2) NSTEMI (non-ST elevated myocardial infarction) Current Visit: Yes Status: Suspected EF preserved with no severe valvular disease - mild NSTEMI versus demand ischemia. Possible small CVA, recent, as well as history of CKD 4. He is a suboptimal candidate for C. Would recommend continued medical management with aspirin/plavix, heparin x 24 additional hours. Mildly elevated troponin likely 2/2 CHF. (3) CKD (chronic kidney disease) Current Visit: Yes Status: Acute per nephrology Qualifiers: Chronic kidney disease stage: stage 4 (severe) Qualified Code(s): N18.4 - Chronic kidney disease, stage 4 (severe) (4) CAD (coronary artery disease) Current Visit: Yes Status: Acute Continue aspirin/plavix/bb/statin Qualifiers: Coronary Disease-Associated Artery/Lesion type: bypass graft [place] vs. transplanted heart: [place] heart Associated angina: with unstable angina Qualified Code(s): I25.700 - Atherosclerosis of coronary artery bypass graft(s) , unspecified, with unstable angina pectoris Discussion w patient/family: The assessment and plan as outlined above was discussed with the patient and/or family members who expressed understanding and agreement. All questions were answered. Thank you for involving us in the care of your patient. Please call with any questions. Subjective Principal diagnosis: low hgb, nausea Interval history: He states best night sleep so far this hospitalization. No chest/jaw/arm discomfort. Dyspnea is stable. No abdominal pain or nausea. He wants to go home. Fever this morning. Objective Vital Signs, Last 4 Hours Temp Pulse Resp BP Pulse Ox 10/10/17 11:44 99.3 F 68 18 150/55 90 10/10/17 10:22 138/54 General: Conversant HEENT: Atraumatic Neck: No JVD Cardiac: Reg Rate and Rhythm Lungs: Other (bl crackles) Neuro: Alert and responsive Abdomen: Soft Skin: No rashes noted on visualized skin Musculoskeletal: No Chest Wall Tenderness Extremities: No Edema Results 10/10/17 04:00 10/10/17 04:00 Lab Results 10/09/17 10/09/17 10/10/17 15:05 23:40 04:00 WBC 8.5 Hgb 7.7 L Hct 22.9 L Plt Count 209 APTT 116.0 H* D 46.0 H D Sodium Potassium Chloride Carbon Dioxide BUN Creatinine Glucose Calcium Magnesium B-Natriuretic Peptide 10/10/17 10/10/17 10/10/17 04:00 04:00 08:00 WBC Hgb Hct Plt Count APTT 69.6 H D Sodium 141 Potassium 3.1 L Chloride 104 Carbon Dioxide 27 BUN 58 H Creatinine 3.01 H Glucose 121 H Calcium 8.0 L Magnesium 1.6 B-Natriuretic Peptide 1269 H Consult Discharge Plan - Plan Referrals: Avel Linares MD [Primary Care Provider] -
--- NOTE | 2017-10-10 18:11 | Internal Med Progress Note ---
Date of Encounter: 10/10/17 Time of Encounter: 11:00 - Assessment and plan (1) Acute respiratory failure with hypoxia Current Visit: Yes Status: Acute Assessment and plan: Patient with acute hypoxic respiratory failure; suspect multifactorial in nature Chest x-ray showed severe perihilar and diffuse groundglass opacities with worsening pulmonary edema V/Q scan negative for pulmonary embolism but did show patchy bilateral pulmonary opacification concerns of edema versus infiltrates. Echocardiogram show LVEF of 55-60% with mild aortic stenosis and severe pulmonary hypertension with estimated RVSP of 63 mmHg 10/09/17: Patient with continued respiratory distress this morning and chest x- ray consistent with pulmonary edema Will increase dose of IV Lasix for this afternoon Patient also with persistent infiltrate suspicious for possible aspiration pneumonia; vancomycin/cefepime discontinued this morning and patient started on Unasyn Pulmonology following and appreciate recommendations 10/10/17: Patient not in respiratory distress this morning but still requiring supplemental oxygenation Will continue IV diuresis with recommendations from nephrology due to acute on chronic renal failure Will continue Unasyn for possible aspiration pneumonia; leukocytosis has resolved and patient did have low-grade temp overnight (2) NSTEMI (non-ST elevated myocardial infarction) Current Visit: Yes Status: Suspected Assessment and plan: Patient with elevated troponins 0.03-> 0.41-> 1.25-> 1.68-> 1.56 V/Q scan negative for pulmonary embolism Chest x-ray showed small bilateral pleural effusions 10/09/17 Will continue heparin drip for another 24 hours per cardiology recommendations Cardiology following and appreciate any additional recommendations 10/10/17 Cardiology recommendations to continue heparin drip for an additional 24 hours Suspect secondary to demand ischemia Appreciate any further recommendations (3) Ischemic cardiomyopathy Current Visit: Yes Status: Acute Assessment and plan: Patient with history of CABG and pacemaker placement Continue Plavix and aspirin (4) Anemia Current Visit: Yes Status: Chronic Assessment and plan: Patient with acute on chronic anemia 10/10/17: Hemoglobin 7.7 this morning Workup with EGD on hold due to the above Will continue to monitor Qualifiers: Anemia type: unspecified type Qualified Code(s): D64.9 - Anemia, unspecified (5) Speech abnormality Current Visit: Yes Status: Acute Assessment and plan: Family's concerns for patient's speech which has been "different" than normal On exam at bedside with family present, patient was able to communicate without any evidence of slurred speech and was able to find words appropriately just as on yesterday's exam on 10/07/17 Patient's bedside neurological exam, with family present at bedside, without any focal neurological findings on 10/07/17 CT of the head on 10/07/17 showed patchy areas of small vessel ischemic changes bilaterally with asymmetric low-density region in the external capsule, left greater than right with determine age. In addition a prior infarct of the left caudate head was noted. MRI cannot be done due to patient's pacemaker. Test findings discussed with neurologist, Dr. Andujar, with recommendations to continue Plavix and aspirin Dr. Andujar states that tPA not indicated for "change in speech" alone without focal neurological deficits which was noted as negative on 10/07/17 neurological exam; as there can be numerous etiologies for "change in speech" including shortness of breath/ hypoxia and dry oral mucosa. Dr. Andujar evaluated patient today and agrees with above Qualifiers: Speech disturbance type: unspecified speech disturbance Qualified Code(s): R47.9 - Unspecified speech disturbances (6) Hypertension Current Visit: Yes Status: Chronic Assessment and plan: Blood pressure slightly elevated; continue home medications Qualifiers: Hypertension type: essential hypertension Qualified Code(s): I10 - Essential (primary) hypertension (7) DVT prophylaxis Current Visit: Yes Status: Acute Assessment and plan: Patient on heparin drip as above - Time Spent With Patient Total time spent is greater than 50% in coordination of care (as documented) at patient's floor/unit and/or counseling patient: - Subjective Interval history: Patient reports a feeling much better this morning and not in respiratory distress. He is still requiring supplemental oxygenation - Constitutional Vitals: Temp Pulse Resp BP Pulse Ox 99.1 F 60 19 147/58 88 10/10/17 16:13 10/10/17 16:13 10/10/17 16:13 10/10/17 16:13 10/10/17 16:13 General appearance: Present: mild distress, A&O X 3, no acute distress, answers questions appropriately - Respiratory Respiratory exam: Absent: accessory muscle use, CTAB (Patient with bilateral crackles), rales, respiratory distress, rhonchi, wheezes Internal Medicine: Result - Labs CBC & Chem 7: 10/10/17 04:00 10/10/17 04:00 Labs: Short CBC 06/10/18 Range/Units 04:00 WBC 8.5 (4.3-11.1) K/mcL Hgb 7.7 L (12.9-16.9) g/dL Hct 22.9 L (37.5-50.1) % Plt Count 209 (140-400) K/mcL Neutrophils # 6.5 (1.6-8.9) K/mcL BMP 10/10/17 04:00 Sodium 141 Potassium 3.1 L Chloride 104 Carbon Dioxide 27 BUN 58 H Creatinine 3.01 H Glucose 121 H Calcium 8.0 L Liver Function 10/10/17 Range/Units 04:00 Albumin 2.6 L (3.5-5.7) g/dL - ABG Interpretation ABG results: ABG ABG pH 7.38 pH Units (7.32-7.45) 10/07/17 10:36 ABG pCO2 44 mmHg (35-45) 10/07/17 10:36 ABG pO2 64 mmHg (85-104) L 10/07/17 10:36 ABG O2 Saturation 92 % (95-98) L 10/07/17 10:36 PT/INR, D-dimer PT 11.7 Seconds (9.4-12.1) 10/07/17 13:17 - Impressions Impressions Chest X-Ray 10/10/17 07:00 IMPRESSION: Persistent widespread airspace disease. Improved left basilar aeration. Small pleural effusions. D/ / Gato Lin MD / Gato Lin MD Interpreting Provider: Gato Lin MD Consult Discharge Plan - Plan Referrals: Avel Linares MD [Primary Care Provider] -
[2017-10-10] MEDS: Ampicillin/Sulbactam 3,000 MG in 0.9 % Sodium Chloride Mini Bag 100 ML IVPB SCH (18:19)
[2017-10-10] MEDS: Gabapentin 300 MG CAPSULE PO SCH (21:10)
[2017-10-10] MEDS: Artificial Tears SOLN 15 ML BOTTLE BOTH EYES SCH (21:51)
[2017-10-11 04:37] LABS: Basophils % 0.3 %; Eosinophils # 0.2 K/mcL (0.0-0.6); Hematocrit 24.7 % (37.5-50.1); Hemoglobin 8.1 g/dL (12.9-16.9); Immature Granulocytes % 0.5 % (0-4); Lymphocytes # 1.4 K/mcL (0.6-4.6); Lymphocytes % 15.7 %; Mean Corpuscular HGB Conc 32.8 g/dL (31.6-35.5); Mean Corpuscular Hemoglobin 30.6 pg (28.0-33.3); Mean Corpuscular Volume 93.2 fL (83.0-100.0); Mean Platelet Volume 10.8 fL (9.4-12.4); Monocytes # 0.6 K/mcL (0.0-1.3); Monocytes % 7.1 %; Neutrophils # 6.6 K/mcL (1.6-8.9); Platelet Count 237 K/mcL (140-400); Red Blood Count 2.65 M/mcL (4.19-5.50); Red Cell Distribution Width 13.2 % (11.5-14.5); Segmented Neutrophils % 74.4 %
[2017-10-11 04:54] LABS: Albumin 2.8 g/dL (3.5-5.7); Calcium 8.5 mg/dL (8.6-10.3); Magnesium 1.7 mg/dL (1.6-2.6); Potassium 3.4 mEq/L (3.5-5.1)
[2017-10-11] MEDS: Ampicillin/Sulbactam 3,000 MG in 0.9 % Sodium Chloride Mini Bag 100 ML IVPB SCH ×2 (05:55→17:27)
[2017-10-11] MEDS: Aspirin Enteric Coated 81 MG Tablet PO SCH (09:10)
[2017-10-11] MEDS: Artificial Tears SOLN 15 ML BOTTLE BOTH EYES SCH ×4 (09:10→20:21)
[2017-10-11] MEDS: Loratadine 10 MG TABLET PO SCH (09:10)
[2017-10-11] MEDS: hydrALAZINE 25 MG TABLET PO SCH ×3 (09:11→20:20)
[2017-10-11] MEDS: Isosorbide MONOnitrate (24 HR) 30 MG TAB.ER.24H PO SCH (09:11)
[2017-10-11] MEDS: Magnesium Oxide 400 MG TABLET PO SCH ×2 (09:12→20:20)
[2017-10-11] MEDS: Furosemide 40 MG/4 ML VIAL IVP SCH ×2 (09:12→20:20)
[2017-10-11] MEDS: amLODIPine 5 MG TABLET PO SCH (09:12)
[2017-10-11] MEDS: Sennosides 8.6 MG TABLET PO SCH ×2 (09:13→20:20)
[2017-10-11] MEDS: Multivit/Ca/Min/Fe/FA 1 TAB TABLET PO SCH (09:13)
[2017-10-11] MEDS: *HR* Acetylcysteine 20% 600 MG/3 ML ORAL SYRINGE PO SCH (10:19)
--- NOTE | 2017-10-11 11:09 | Cardiology Progress Note ---
Date of Encounter: 10/11/17 Time of Encounter: 11:00 Assessment and Plan (1) Dyspnea Current Visit: Yes Status: Acute iv diuresis maintain negative fluid balance, strict IO (dotson in place now). close monitoring of renal function. Nephrology following Suspect multifactorial, Has fever and WBC, on antibiotics for PNA History of asbestosis TTE shows preserved LVEF, 55-60% with severe PH and moderate valvular dysfunction (AR, MR, TR). Cardiology will sign-off, will coordinate outpt f/u Qualifiers: Dyspnea type: acute respiratory distress Qualified Code(s): R06.03 - Acute respiratory distress (2) NSTEMI (non-ST elevated myocardial infarction) Current Visit: Yes Status: Suspected EF preserved with no severe valvular disease - mild NSTEMI versus demand ischemia. Possible small CVA, recent, as well as history of CKD 4. He is a suboptimal candidate for LHC. Would recommend continued medical management with aspirin/plavix/bb Heparin gtt d/c'ed on 10/10 d/t declining H/H, stable today. Mildly elevated troponin likely 2/2 CHF. (3) CAD (coronary artery disease) Current Visit: Yes Status: Acute Continue aspirin/plavix/bb/statin Qualifiers: Coronary Disease-Associated Artery/Lesion type: bypass graft [place] vs. transplanted heart: [place] heart Associated angina: with unstable angina Qualified Code(s): I25.700 - Atherosclerosis of coronary artery bypass graft(s) , unspecified, with unstable angina pectoris (4) CKD (chronic kidney disease) Current Visit: Yes Status: Acute per nephrology Qualifiers: Chronic kidney disease stage: stage 4 (severe) Qualified Code(s): N18.4 - Chronic kidney disease, stage 4 (severe) Discussion w patient/family: The assessment and plan as outlined above was discussed with the patient and/or family members who expressed understanding and agreement. All questions were answered. Thank you for involving us in the care of your patient. Please call with any questions. The patient will be discussed and reviewed with Dr. Terrazas; changes to be made accordingly. Subjective Principal diagnosis: low hgb, nausea Interval history: Seen and examined. No complaints today upon exam except constipation. No chest pain reported, shortness of breath seems to be improved. Objective Vital Signs, Last 4 Hours Temp Pulse Resp BP Pulse Ox 06/11/18 07:55 60 10/11/17 07:49 65 10/11/17 07:18 98.2 F 63 18 137/53 91 General: Conversant HEENT: Atraumatic, Normocephaly Cardiac: Reg Rate and Rhythm, Normal S1 and S2, Other (2/6 murmur present) Lungs: Other (Coarse throughout) Neuro: Alert and responsive Abdomen: Soft Skin: No rashes noted on visualized skin Musculoskeletal: No Chest Wall Tenderness Extremities: No Edema, Normal Pulses Results 10/11/17 04:15 10/11/17 04:15 Lab Results 10/11/17 10/11/17 04:15 04:15 WBC 8.8 Hgb 8.1 L Hct 24.7 L Plt Count 237 Sodium 145 Potassium 3.4 L Chloride 106 Carbon Dioxide 28 BUN 68 H Creatinine 2.81 H Glucose 119 H Calcium 8.5 L Magnesium 1.7 Active Medications Acetaminophen (Tylenol) 650 mg PO Q6HR PRN PRN Reason: Mild Pain/Fever Stop: 04/06/18 12:37 Acetylcysteine (Acetylcysteine 20%) 600 mg PO BID [facility] Stop: 10/11/17 13:16 Last Admin: 10/11/17 10:19 Dose: 600 mg Albuterol/Ipratropium (Duoneb) 3 ml IH [id number] PRN PRN Reason: Shortness Of Breath/Wheezing Stop: 04/09/18 02:16 Last Admin: 10/09/17 04:10 Dose: 3 ml Amlodipine Besylate (Norvasc) 10 mg PO DAILY [facility] Stop: 04/07/18 09:01 Last Admin: 10/11/17 09:12 Dose: 10 mg Artificial Tears (Akwa Tears) 1 drop BOTH EYES QID MARYANN PRN Reason: Protocol Stop: 04/11/18 21:46 Last Admin: 10/11/17 09:10 Dose: 1 drop Aspirin (Aspirin Ec) 81 mg PO DAILY [facility] Stop: 04/09/18 09:01 Last Admin: 10/11/17 09:10 Dose: 81 mg Atenolol (Tenormin) 50 mg PO DAILY [facility] Stop: 04/07/18 09:01 Last Admin: 10/11/17 09:13 Dose: 50 mg Calcitriol (Rocaltrol) 0.25 mcg PO DAILY [facility] Stop: 04/07/18 09:01 Last Admin: 10/11/17 09:13 Dose: 0.25 mcg Clopidogrel Bisulfate (Plavix) 75 mg PO DAILY MARYANN Stop: 04/09/18 09:01 Last Admin: 10/11/17 09:13 Dose: 75 mg Darbepoetin Marco (Aranesp) 40 mcg SQ QWEEK MARYANN Stop: 04/11/18 09:31 Last Admin: 10/10/17 10:22 Dose: 40 mcg Docusate Sodium (Colace) 100 mg PO DAILY PRN; Protocol PRN Reason: Constipation Stop: 04/06/18 12:43 Furosemide (Lasix) 40 mg IVP BID MARYANN Stop: 04/09/18 09:01 Last Admin: 10/11/17 09:12 Dose: 40 mg Gabapentin (Neurontin) 300 mg PO HS MARYANN Stop: 04/10/18 21:01 Last Admin: 10/10/17 21:10 Dose: 300 mg Heparin Sodium (Porcine) (Heparin) 4,000 unit IVP Q6HR PRN PRN Reason: SEE COMMENTS Stop: 04/08/18 11:33 Heparin Sodium (Porcine) (Heparin) 2,000 unit IVP Q6H PRN PRN Reason: SEE COMMENTS Stop: 04/08/18 11:33 Last Admin: 10/10/17 01:53 Dose: 2,000 unit Hydralazine HCl (Hydralazine) 25 mg PO TID MARYANN Stop: 04/06/18 15:01 Last Admin: 10/11/17 09:11 Dose: 25 mg Ampicillin Sodium/Sulbactam Sodium 3,000 mg/ Sodium Chloride 100 mls @ 200 mls/ hr IVPB Q12HR MARYANN Stop: 04/11/18 18:01 Last Infusion: 10/11/17 07:28 Dose: Infused Isosorbide Mononitrate (Imdur) 90 mg PO DAILY MARYANN Stop: 04/12/18 09:01 Last Admin: 10/11/17 09:11 Dose: 90 mg Lansoprazole (Prevacid) 30 mg PO DAILY MARYANN Stop: 04/07/18 09:01 Last Admin: 10/11/17 09:13 Dose: 30 mg Levothyroxine Sodium (Synthroid) 50 mcg PO 0630 MARYANN Stop: 04/07/18 06:31 Last Admin: 10/11/17 05:56 Dose: 50 mcg Loratadine (Claritin) 10 mg PO DAILY [facility] Stop: 04/07/18 09:01 Last Admin: 10/11/17 09:10 Dose: 10 mg Magnesium Oxide (Mag-Ox) 400 mg PO BID MARYANN PRN Reason: Protocol Stop: 04/11/18 09:31 Last Admin: 10/11/17 09:12 Dose: 400 mg Multivitamins/Calcium (Thera M Plus) 1 tab PO DAILY MARYANN PRN Reason: Protocol Stop: 04/07/18 09:01 Last Admin: 10/11/17 09:13 Dose: 1 tab Naloxone HCl (Narcan) 0.4 mg IVP Q2MIN PRN PRN Reason: SEE COMMENTS Stop: 04/06/18 12:37 Promethazine HCl (Phenergan) 12.5 mg IVP Q6HR PRN PRN Reason: Nausea And Vomiting Stop: 04/06/18 12:45 Senna (Senna) 8.6 mg PO BID [facility] Stop: 04/10/18 10:46 Last Admin: 10/11/17 09:13 Dose: 8.6 mg - Imaging and Cardiology Echo: report reviewed Other Results: 12 hour tele: avg HR=61 paced. - EKG Interpretation EKG results cardiology: personally reviewed - VTE Documentation of Mechanical Device: Intermittent pneumatic compression device Consult Discharge Plan - Plan Referrals: Avel Linares MD [Primary Care Provider] - (SENT WEB REQUEST ON 10-11-17 @ 2916 )
--- NOTE | 2017-10-11 13:22 | Nephrology Progress Note ---
Date of Encounter: 10/11/17 Time of Encounter: 13:19 - Assessment and Plan (1) Pulmonary edema Current Visit: Yes Status: Acute He has been net negative with the higher dosing of lasix IV but his eGFR has trended slightly worse along with borderline / [id number]-normal PNa (near hypernatremic), plus hypokalemia, so the diuretics are having an impact on his renal function. I'll keep the Lasix 40mg IV BID for today. Hgb is stable near 8.1 s/p Aranesp yesterday. When the pt's dyspnea further improves, I'd recommend reconsulting GI since he was about to have endoscopy last week for his anemia. Hypokalemia/hypomagnesemia: cont the Mag oxide 400mg bid, plus the KCl 40mEq oral tablet x1 that I ordered very early this AM. Of note, he also reported posterior discomfort in the bed, so I recommend ongoing efforts to rotate him and active efforts to avoid a decub ulcer. Cont to renally dose and avoid nephrotoxins as able. I met with the family and answered all their questions. Will close follow with you. Qualifiers: Chronicity: acute Qualified Code(s): J81.0 - Acute pulmonary edema (2) MINOR (acute kidney injury) Current Visit: No Status: Acute See above (3) CKD (chronic kidney disease), stage IV Current Visit: Yes Status: Chronic His CKD has been in the stage IV range, not stage III. (4) Hypertension Current Visit: Yes Status: Chronic Avoiding an ODIN or ARB d/t his renal problems as described above. Qualifiers: Hypertension type: essential hypertension Qualified Code(s): I10 - Essential (primary) hypertension (5) Hypokalemia Current Visit: Yes Status: Acute Cont Mag and will periodically replace as needed. Etiology secondary to the loop diuretics. (6) Hypomagnesemia Current Visit: Yes Status: Acute See above (7) Anemia Current Visit: Yes Status: Chronic See above Qualifiers: Anemia type: unspecified type Qualified Code(s): D64.9 - Anemia, unspecified Subjective Principal diagnosis: low hgb, nausea Interval history: Pt was seen and examined in the 2N room. His family was present. He did not affirm N/V today and has started to eat more. He voiced feeling slightly less shortness of breath. He reported during my interview/exam that he was ready for a BM. I updated his RN. Objective - Vital Signs Vital signs: Vital Signs Temp Pulse Resp BP Pulse Ox 10/11/17 11:26 98.5 F 60 20 144/57 90 10/11/17 07:55 60 10/11/17 07:49 65 10/11/17 07:18 98.2 F 63 18 137/53 91 10/11/17 03:33 98 F 60 22 134/53 94 10/11/17 00:55 26 97 10/10/17 23:32 98.1 F 60 20 135/58 92 10/10/17 21:24 60 10/10/17 19:34 98.5 F 60 20 133/57 91 Intake and Output 10/10/17 10/11/17 10/11/17 23:59 07:59 15:59 Intake Total 100 / 220 100 / 100 800 / 800 Output Total 1325 / 1325 520 / 520 Balance 100 / 220 -1225 / -1225 280 / 280 Intake: IV Fluids 100 / 100 100 / 100 Unasyn 3,000 MG In 0.9 % Sodium 100 / 100 100 / 100 Chloride (Mini-Bag +) 100 ML @ 200 mls/hr IVPB Q12HR MARYANN Rx#: [id number] Oral 800 / 800 Output: Catheter 1325 / 1325 520 / 520 Other: Meal Lunch Percent of Meal Consumed 75% Weight 70.6 kg Blood Glucose* 125 125 164 Patient Weight 10/11/17 23:59 Weight 70.6 kg - General Appearance Exam: General appearance: Present: well-developed, well-nourished, appears started age , frail EENT: Present: ATNC, PERRL, mucous membranes moist Neck: Present: supple Additional Comments: basilar crackles with overall diminished breath sounds Cardiology: Present: no edema, regular rate, normal S1, normal S2 Gastrointestinal: Present: normoactive bowel sounds, no tenderness, no guarding , no organomegaly Integumentary: Present: no rash, warm and dry Neurologic: Present: no focal deficit, no asterixis, alert and oriented x3 (and generally symmetrical muscle strength except his LUE was slightly weaker than the RUE. ) Musculoskeletal: Present: no deformities, no erythema Psychiatric: Present: mood/affect appropriate, cooperative - Lab 10/12/17 09:49 10/12/17 08:32 Most recent lab results ABG pH 7.38 pH Units (7.32-7.45) 10/07/17 10:36 ABG pCO2 44 mmHg (35-45) 10/07/17 10:36 ABG pO2 64 mmHg (85-104) L 10/07/17 10:36 ABG HCO3 26 mEq/L (21-27) 10/07/17 10:36 ABG O2 Saturation 92 % (95-98) L 10/07/17 10:36 Calcium 8.5 mg/dL (8.6-10.3) L 10/11/17 04:15 Magnesium 1.7 mg/dL (1.6-2.6) 10/11/17 04:15 - VTE Documentation of Mechanical Device: Intermittent pneumatic compression device Consult Discharge Plan - Plan Referrals: Avel Linares MD [Primary Care Provider] - 10/20/17 2:30 pm ()
[2017-10-11] MEDS: *HR* Heparin 5,000 UNIT/ML VIAL SQ SCH (17:27)
--- NOTE | 2017-10-11 19:27 | Internal Med Progress Note ---
Date of Encounter: 10/11/17 Time of Encounter: 11:00 - Assessment and plan (1) Acute respiratory failure with hypoxia Current Visit: Yes Status: Acute Assessment and plan: Patient with acute hypoxic respiratory failure; suspect multifactorial in nature Chest x-ray showed severe perihilar and diffuse groundglass opacities with worsening pulmonary edema V/Q scan negative for pulmonary embolism but did show patchy bilateral pulmonary opacification concerns of edema versus infiltrates. Echocardiogram show LVEF of 55-60% with mild aortic stenosis and severe pulmonary hypertension with estimated RVSP of 63 mmHg 10/09/17: Patient with continued respiratory distress this morning and chest x- ray consistent with pulmonary edema Will increase dose of IV Lasix for this afternoon Patient also with persistent infiltrate suspicious for possible aspiration pneumonia; vancomycin/cefepime discontinued this morning and patient started on Unasyn Pulmonology following and appreciate recommendations 10/10/17: Patient not in respiratory distress this morning but still requiring supplemental oxygenation Will continue IV diuresis with recommendations from nephrology due to acute on chronic renal failure Will continue Unasyn for possible aspiration pneumonia; leukocytosis has resolved and patient did have low-grade temp overnight 10/11/17: Patient still requiring high amounts of oxygen supplementation this morning Will continue IV diuresis with nephrology recommendations due to acute on chronic renal failure Will attempt to wean supplemental oxygenation as tolerated (2) CKD (chronic kidney disease) stage 3, GFR 30-59 ml/min Current Visit: Yes Status: Acute Assessment and plan: Creatinine elevated but improving slightly Nephrology following and appreciate recommendations (3) NSTEMI (non-ST elevated myocardial infarction) Current Visit: Yes Status: Suspected Assessment and plan: Patient with elevated troponins 0.03-> 0.41-> 1.25-> 1.68-> 1.56 V/Q scan negative for pulmonary embolism Chest x-ray showed small bilateral pleural effusions 10/09/17 Will continue heparin drip for another 24 hours per cardiology recommendations Cardiology following and appreciate any additional recommendations 10/10/17 Cardiology recommendations to continue heparin drip for an additional 24 hours Suspect secondary to demand ischemia Appreciate any further recommendations 10/11/17 Heparin drip has been discontinued and elevated troponin suspected secondary to demand ischemia (4) Ischemic cardiomyopathy Current Visit: Yes Status: Acute Assessment and plan: Patient with history of CABG and pacemaker placement Continue Plavix and aspirin (5) Anemia Current Visit: Yes Status: Chronic Assessment and plan: Patient with acute on chronic anemia 10/10/17: Hemoglobin 7.7 this morning Workup with EGD on hold due to the above Will continue to monitor 10/11/17: Hemoglobin 8.1 this morning Will reconsult GI for EGD once stable from a respiratory standpoint Qualifiers: Anemia type: unspecified type Qualified Code(s): D64.9 - Anemia, unspecified (6) Speech abnormality Current Visit: Yes Status: Acute Assessment and plan: Family's concerns for patient's speech which has been "different" than normal On exam at bedside with family present, patient was able to communicate without any evidence of slurred speech and was able to find words appropriately just as on yesterday's exam on 10/07/17 Patient's bedside neurological exam, with family present at bedside, without any focal neurological findings on 10/07/17 CT of the head on 10/07/17 showed patchy areas of small vessel ischemic changes bilaterally with asymmetric low-density region in the external capsule, left greater than right with determine age. In addition a prior infarct of the left caudate head was noted. MRI cannot be done due to patient's pacemaker. Test findings discussed with neurologist, Dr. Andujar, with recommendations to continue Plavix and aspirin Dr. Andujar states that tPA not indicated for "change in speech" alone without focal neurological deficits which was noted as negative on 10/07/17 neurological exam; as there can be numerous etiologies for "change in speech" including shortness of breath/ hypoxia and dry oral mucosa. Dr. Andujar evaluated patient today and agrees with above Qualifiers: Speech disturbance type: unspecified speech disturbance Qualified Code(s): R47.9 - Unspecified speech disturbances (7) Hypertension Current Visit: Yes Status: Chronic Assessment and plan: Blood pressure slightly elevated; continue home medications Qualifiers: Hypertension type: essential hypertension Qualified Code(s): I10 - Essential (primary) hypertension (8) DVT prophylaxis Current Visit: Yes Status: Acute Assessment and plan: Subcutaneous heparin - Time Spent With Patient Total time spent is greater than 50% in coordination of care (as documented) at patient's floor/unit and/or counseling patient: - Subjective Interval history: Patient presented with nausea scheduled for EGD with GI developed acute hypoxic respiratory failure secondary to flash pulmonary edema Patient still requiring high amounts of oxygen supplementation with IV diuresis As a result of the above patient also developed elevated troponins thought to be secondary to demand ischemia Patient also with acute on chronic renal failure - Constitutional Vitals: Temp Pulse Resp BP Pulse Ox 98.0 F 60 20 141/53 94 10/11/17 16:28 10/11/17 16:28 10/11/17 16:28 10/11/17 16:28 10/11/17 16:28 General appearance: Present: mild distress, A&O X 3, no acute distress, answers questions appropriately - Respiratory Respiratory exam: Absent: accessory muscle use, CTAB (Patient with bilateral crackles), respiratory distress, tachypnea - Cardiovascular Cardiovascular exam: Present: RRR, +S1, +S2. Absent: diastolic murmur, gallop, rubs, systolic murmur - Extremities Exam Extremities exam: Absent: pedal edema Internal Medicine: Result - Labs CBC & Chem 7: 10/11/17 04:15 10/11/17 04:15 Labs: Short CBC 10/11/17 Range/Units 04:15 WBC 8.8 (4.3-11.1) K/mcL Hgb 8.1 L (12.9-16.9) g/dL Hct 24.7 L (37.5-50.1) % Plt Count 237 (140-400) K/mcL Neutrophils # 6.6 (1.6-8.9) K/mcL BMP 10/11/17 04:15 Sodium 145 Potassium 3.4 L Chloride 106 Carbon Dioxide 28 BUN 68 H Creatinine 2.81 H Glucose 119 H Calcium 8.5 L Liver Function 10/11/17 Range/Units 04:15 Albumin 2.8 L (3.5-5.7) g/dL - ABG Interpretation ABG results: ABG ABG pH 7.38 pH Units (7.32-7.45) 10/07/17 10:36 ABG pCO2 44 mmHg (35-45) 10/07/17 10:36 ABG pO2 64 mmHg (85-104) L 10/07/17 10:36 ABG O2 Saturation 92 % (95-98) L 10/07/17 10:36 PT/INR, D-dimer PT 11.7 Seconds (9.4-12.1) 10/07/17 13:17 - VTE Documentation of Mechanical Device: Intermittent pneumatic compression device Consult Discharge Plan - Plan Referrals: Avel Linares MD [Primary Care Provider] - 10/20/17 2:30 pm ()
[2017-10-11] MEDS: Gabapentin 300 MG CAPSULE PO SCH (20:20)
[2017-10-12] MEDS: Ampicillin/Sulbactam 3,000 MG in 0.9 % Sodium Chloride Mini Bag 100 ML IVPB SCH ×2 (05:47→18:29)
[2017-10-12] MEDS: *HR* Heparin 5,000 UNIT/ML VIAL SQ SCH ×2 (05:48→17:54)
[2017-10-12] MEDS: Isosorbide MONOnitrate (24 HR) 30 MG TAB.ER.24H PO SCH (08:21)
[2017-10-12] MEDS: Sennosides 8.6 MG TABLET PO SCH ×2 (08:22→21:02)
[2017-10-12] MEDS: Loratadine 10 MG TABLET PO SCH (08:22)
[2017-10-12] MEDS: Aspirin Enteric Coated 81 MG Tablet PO SCH (08:22)
[2017-10-12] MEDS: Multivit/Ca/Min/Fe/FA 1 TAB TABLET PO SCH (08:22)
[2017-10-12] MEDS: hydrALAZINE 25 MG TABLET PO SCH ×3 (08:22→21:02)
[2017-10-12] MEDS: Magnesium Oxide 400 MG TABLET PO SCH ×2 (08:22→21:02)
[2017-10-12] MEDS: Furosemide 40 MG/4 ML VIAL IVP SCH ×2 (08:22→21:01)
[2017-10-12] MEDS: amLODIPine 5 MG TABLET PO SCH (08:22)
[2017-10-12] MEDS: Artificial Tears SOLN 15 ML BOTTLE BOTH EYES SCH ×4 (08:23→21:04)
[2017-10-12 10:25] LABS: Hematocrit 24.5 % (37.5-50.1); Mean Corpuscular HGB Conc 32.7 g/dL (31.6-35.5); Mean Corpuscular Hemoglobin 31.4 pg (28.0-33.3); Mean Corpuscular Volume 96.1 fL (83.0-100.0); Platelet Count 260 K/mcL (140-400); Red Blood Count 2.55 M/mcL (4.19-5.50); Red Cell Distribution Width 13.3 % (11.5-14.5)
[2017-10-12 10:50] LABS: Calcium 8.7 mg/dL (8.6-10.3); Potassium 3.9 mEq/L (3.5-5.1)
--- NOTE | 2017-10-12 13:02 | Internal Med Progress Note ---
Date of Encounter: 10/12/17 Time of Encounter: 09:30 - Assessment and plan (1) Acute respiratory failure with hypoxia Current Visit: Yes Status: Acute Assessment and plan: Due to fluid overload and congestive heart failure along with underlying pulmonary hypertension and asbestosis. Continue O2 supplementation been FiO2 as tolerated. Patient will most likely need home oxygen. He is previously not been on home oxygen. Will continue supportive care. (2) Congestive heart failure Current Visit: Yes Status: Acute Assessment and plan: Continue IV Lasix. Complicated by severe pulmonary hypertension and chronic kidney disease. Monitor input and output. Nephrology helping with volume management. Follow-up outpatient with cardiology after discharge. 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 Continue current medications Qualifiers: Hypertension type: essential hypertension Qualified Code(s): I10 - Essential (primary) hypertension (4) Anemia Current Visit: Yes Status: Chronic Assessment and plan: Stable. Hemoglobin 8. At this time we will hold off on EGD due to respiratory issues. Patient will need EGD once his symptoms improved and his respiratory status is optimized. Qualifiers: Anemia type: unspecified type Qualified Code(s): D64.9 - Anemia, unspecified (5) Ischemic cardiomyopathy Current Visit: Yes Status: Acute Assessment and plan: Continue volume management per nephrology recommendations. Currently on Lasix 40 mg IV twice daily. So far he still has a 3.4 L positive fluid balance. (6) NSTEMI (non-ST elevated myocardial infarction) Current Visit: Yes Status: Suspected Assessment and plan: Mild non-ST elevation MN versus demand ischemia. Recent is currently not a candidate for cardiac catheterization. Continue medical management with aspirin , Plavix and beta francy. IV heparin therapy had been stopped due to low hemoglobin levels. (7) CKD (chronic kidney disease) stage 3, GFR 30-59 ml/min Current Visit: Yes Status: Chronic Assessment and plan: Renal function remained stable. Creatinine is 2.82. Nephrology following. (8) Speech abnormality Current Visit: Yes Status: Acute Qualifiers: Speech disturbance type: unspecified speech disturbance Qualified Code(s): R47.9 - Unspecified speech disturbances (9) DVT prophylaxis Current Visit: Yes Status: Acute Assessment and plan: On subcutaneous heparin - Time Spent With Patient Total time spent is greater than 50% in coordination of care (as documented) at patient's floor/unit and/or counseling patient: - Subjective Interval history: Patient is awake and alert. Lying in bed. Comfortable. Denies any new complaints at this time. Remains on high flow oxygen via nasal cannula. His is present at bedside and reports patient appears to be more alert today. Patient also asks about when he can go home. He denies any chest pain. No palpitations. He does get very short of breath with any activity. - Constitutional Vitals: Temp Pulse Resp BP Pulse Ox 98.0 F 60 15 129/29 89 10/12/17 11:08 10/12/17 11:08 10/12/17 11:08 10/12/17 11:08 10/12/17 11:08 General appearance: Present: mild distress, A&O X 3, no acute distress, answers questions appropriately - Neck Neck exam general surgery: Present: supple, trachea midline. Absent: lymphadenopathy - Respiratory Respiratory exam: Absent: accessory muscle use, rales, rhonchi, wheezes Additional comments: Bilateral crackles - Cardiovascular Cardiovascular exam: Present: RRR, +S1, +S2. Absent: diastolic murmur, gallop, rubs, systolic murmur - GI/Abdominal GI/Abdominal exam: Present: normal bowel sounds, soft, no peritoneal signs. Absent: distended, tenderness - Extremities Exam Extremities exam: Present: warm, radial pulses palpable and symmetrical. Absent : calf tenderness, cyanotic, pedal edema - Neurological Exam Neurological exam: Present: alert, oriented X3, no focal deficits. Absent: facial droop, speech deficit - Skin Skin exam: Present: dry, intact Internal Medicine: Result - Labs CBC & Chem 7: 10/12/17 09:49 10/12/17 08:32 Labs: Short CBC 10/12/17 Range/Units 09:49 WBC 9.0 (4.3-11.1) K/mcL Hgb 8.0 L (12.9-16.9) g/dL Hct 24.5 L (37.5-50.1) % Plt Count 260 (140-400) K/mcL BMP 10/12/17 08:32 Sodium 145 Potassium 3.9 Chloride 106 Carbon Dioxide 28 BUN 77 H Creatinine 2.82 H Glucose 152 H Calcium 8.7 - ABG Interpretation ABG results: ABG ABG pH 7.38 pH Units (7.32-7.45) 10/07/17 10:36 ABG pCO2 44 mmHg (35-45) 10/07/17 10:36 ABG pO2 64 mmHg (85-104) L 10/07/17 10:36 ABG O2 Saturation 92 % (95-98) L 10/07/17 10:36 PT/INR, D-dimer PT 11.7 Seconds (9.4-12.1) 10/07/17 13:17 - Impressions Impressions Chest X-Ray 10/12/17 08:03 IMPRESSION: No significant interval change of bilateral multifocal airspace opacities and small pleural effusions. D/ / Isabel Vargas MD / Isabel Vagras MD Interpreting Provider: Isabel Vargas MD - VTE Documentation of Mechanical Device: Intermittent pneumatic compression device Consult Discharge Plan - Plan Referrals: Avel Linares MD [Primary Care Provider] - 10/20/17 2:30 pm ()
[2017-10-12] MEDS ORDERED: Furosemide 80 MG in 0.9 % Sodium Chloride 50 ML IVPB ONE (17:10)
--- NOTE | 2017-10-12 17:12 | Nephrology Progress Note ---
Date of Encounter: 10/12/17 Time of Encounter: 17:00 - Assessment and Plan (1) Pulmonary edema Current Visit: Yes Status: Acute Ongoing dyspnea though his NC oxygenation requirements are slowly trending better. UOP not ideal, so I've ordered an extra 80mg IV x1. Unfortunately his BNP and CXR are unchanged. I offered UF as an option, however , given his current renal dysfunction, he likely would easily require ongoing HD. UF at our institution would require placement of a triple lumen HD catheter , which is more invasive; he and his family agreed that this option would be too invasive / aggressive of a therapy at this time. I also set the expectation that his renal function may very well worsen with loop diuretics. Be sure to continue active rotation in the bed to avoid decub ulcers. His affect was more flat today. Cont to renally dose and avoid nephrotoxins as able. I met with the family and answered all their questions. Will close follow with you. Qualifiers: Chronicity: acute Qualified Code(s): J81.0 - Acute pulmonary edema (2) MINOR (acute kidney injury) Current Visit: No Status: Acute See above (3) CKD (chronic kidney disease), stage IV Current Visit: Yes Status: Chronic His CKD has been in the stage IV range, not stage III. (4) Hypertension Current Visit: Yes Status: Chronic Avoiding an ODIN or ARB d/t his renal problems as described above. Qualifiers: Hypertension type: essential hypertension Qualified Code(s): I10 - Essential (primary) hypertension (5) Hypokalemia Current Visit: Yes Status: Acute See above (6) Hypomagnesemia Current Visit: Yes Status: Acute See above (7) Anemia Current Visit: Yes Status: Chronic See above Qualifiers: Anemia type: unspecified type Qualified Code(s): D64.9 - Anemia, unspecified Subjective Principal diagnosis: low hgb, nausea Interval history: Pt was seen and examined in the 2N room. His family was present. He did not affirm N/V today and has started to eat more. He voiced feeling more saddness and voiced hope to go home soon. His daughters and were present. I discussed his UOP with his floor RN. He said that his BM yesterday was not checked for quiac. Objective - Vital Signs Vital signs: Vital Signs Temp Pulse Resp BP Pulse Ox 10/12/17 16:16 98.0 F 59 21 118/60 92 10/12/17 15:41 4 91 10/12/17 11:08 98.0 F 60 15 129/29 89 10/12/17 10:02 92 10/12/17 07:18 98.0 F 62 19 136/48 93 10/12/17 06:10 93 10/12/17 04:20 60 10/12/17 03:02 98.6 F 60 18 130/49 95 10/11/17 23:25 97.6 F 70 18 131/57 92 10/11/17 23:00 70 10/11/17 22:48 19 98 10/11/17 20:15 60 10/11/17 19:46 98.4 F 71 18 121/52 91 Intake and Output 10/12/17 10/12/17 10/12/17 07:59 15:59 23:59 Intake Total 500 / 500 240 / 240 Output Total 600 / 600 400 / 400 400 / 400 Balance -100 / -100 -160 / -160 -400 / -400 Intake: IV Fluids 200 / 200 Unasyn 3,000 MG In 0.9 % Sodium 200 / 200 Chloride (Mini-Bag +) 100 ML @ 200 mls/hr IVPB Q12HR [facility] Rx#: [id number] Oral 300 / 300 240 / 240 Output: Catheter 600 / 600 400 / 400 400 / 400 Other: Meal Lunch Percent of Meal Consumed 60% Weight 69.4 kg Blood Glucose* 139 Patient Weight 10/12/17 23:59 Weight 69.4 kg - General Appearance Exam: General appearance: Present: well-developed, well-nourished, appears started age , frail EENT: Present: ATNC, PERRL, mucous membranes moist Neck: Present: supple Additional Comments: trace basilar crackles with gentle breathing without the appearance of labored breathing. Cardiology: Present: no edema, regular rate, normal S1, normal S2 Gastrointestinal: Present: normoactive bowel sounds, no tenderness, no guarding , no organomegaly Integumentary: Present: no rash, warm and dry Neurologic: Present: no focal deficit, no asterixis, alert and oriented x3 (and generally symmetrical muscle strength except his LUE was slightly weaker than the RUE. ) Musculoskeletal: Present: no deformities, no erythema Psychiatric: Present: cooperative, however he appeared more flat today - Lab 10/12/17 09:49 10/12/17 08:32 Most recent lab results ABG pH 7.38 pH Units (7.32-7.45) 10/07/17 10:36 ABG pCO2 44 mmHg (35-45) 10/07/17 10:36 ABG pO2 64 mmHg (85-104) L 10/07/17 10:36 ABG HCO3 26 mEq/L (21-27) 10/07/17 10:36 ABG O2 Saturation 92 % (95-98) L 10/07/17 10:36 Calcium 8.7 mg/dL (8.6-10.3) 10/12/17 08:32 Magnesium 1.7 mg/dL (1.6-2.6) 10/11/17 04:15 - VTE Documentation of Mechanical Device: Intermittent pneumatic compression device Consult Discharge Plan - Plan Referrals: Avel Linares MD [Primary Care Provider] - 10/20/17 2:30 pm ()
[2017-10-12] MEDS: Gabapentin 300 MG CAPSULE PO SCH (21:02)
[2017-10-12 22:43] LABS: Bilirubin,Urine Negative (Negative); Blood,Urine Trace (Negative); Clarity,Urine Clear (Clear); Color,Urine Yellow (Yellow); Glucose,Urine (UA) Normal (Normal); Ketones,Urine Negative (Negative); Leukocyte Esterase,Urine Negative (Negative); Nitrite,Urine Negative (Negative); Protein,Urine 30 mg/dL (Neg-Trace); Specific Gravity,Urine 1.012 (1.010-1.025); Urobilinogen,Urine Normal (Normal)
[2017-10-12 22:44] LABS: Bacteria,Urine None Seen per hpf (None-Few); Hyaline Casts,Urine None Seen per lpf (None-Few); Squamous Epithelial Cell,Urine Moderate per lpf (None-Few); WBC,Urine 0-3 per hpf (0-3)
[2017-10-13] MEDS: Ampicillin/Sulbactam 3,000 MG in 0.9 % Sodium Chloride Mini Bag 100 ML IVPB SCH (06:26)
[2017-10-13] MEDS: *HR* Heparin 5,000 UNIT/ML VIAL SQ SCH ×2 (06:28→17:42)
[2017-10-13 06:59] LABS: Basophils # 0.1 K/mcL (0.0-0.2); Basophils % 0.5 %; Eosinophils # 0.4 K/mcL (0.0-0.6); Eosinophils % 3.9 %; Hematocrit 23.5 % (37.5-50.1); Hemoglobin 7.7 g/dL (12.9-16.9); Immature Granulocytes % 0.4 % (0-4); Lymphocytes # 1.4 K/mcL (0.6-4.6); Lymphocytes % 13.3 %; Mean Corpuscular HGB Conc 32.8 g/dL (31.6-35.5); Mean Corpuscular Hemoglobin 31.3 pg (28.0-33.3); Mean Corpuscular Volume 95.5 fL (83.0-100.0); Monocytes # 0.7 K/mcL (0.0-1.3); Monocytes % 6.8 %; Neutrophils # 7.6 K/mcL (1.6-8.9); Platelet Count 250 K/mcL (140-400); Red Blood Count 2.46 M/mcL (4.19-5.50); Red Cell Distribution Width 13.3 % (11.5-14.5); Segmented Neutrophils % 75.1 %
[2017-10-13 07:15] LABS: Calcium 8.8 mg/dL (8.6-10.3); Potassium 4.2 mEq/L (3.5-5.1)
[2017-10-13] MEDS: hydrALAZINE 25 MG TABLET PO SCH ×3 (08:16→20:56)
[2017-10-13] MEDS: Aspirin Enteric Coated 81 MG Tablet PO SCH (08:16)
[2017-10-13] MEDS: Loratadine 10 MG TABLET PO SCH (08:16)
[2017-10-13] MEDS: Furosemide 40 MG/4 ML VIAL IVP SCH (08:16)
[2017-10-13] MEDS: Isosorbide MONOnitrate (24 HR) 30 MG TAB.ER.24H PO SCH (08:16)
[2017-10-13] MEDS: Sennosides 8.6 MG TABLET PO SCH ×2 (08:16→20:56)
[2017-10-13] MEDS: Magnesium Oxide 400 MG TABLET PO SCH ×2 (08:17→20:56)
[2017-10-13] MEDS: amLODIPine 5 MG TABLET PO SCH (08:17)
[2017-10-13] MEDS: Multivit/Ca/Min/Fe/FA 1 TAB TABLET PO SCH (08:17)
[2017-10-13] MEDS: Artificial Tears SOLN 15 ML BOTTLE BOTH EYES SCH ×4 (08:18→20:56)
[2017-10-13] MEDS: Furosemide 80 MG in 0.9 % Sodium Chloride 50 ML IVPB SCH ×2 (11:53→17:42)
[2017-10-13] MEDS ORDERED: Ferumoxytol 510 MG in 0.9 % Sodium Chloride 100 ML IVPB ONE (12:21)
--- NOTE | 2017-10-13 12:25 | Nephrology Progress Note ---
Date of Encounter: 10/13/17 Time of Encounter: 10:30 - Assessment and Plan (1) Pulmonary edema Current Visit: Yes Status: Acute He has been net negative the last few days but his dyspnea remains moderately advanced plus his BNP remains consistently elevated and so will require higher lasix dosing of 80mg IV BID. Suspect he will need home O2. I reviewed the Carotid and Echo from earlier this admission. Monitoring PNa UA was not consistent with a UTI. Anemia remains an issue and a FOBT was obtained today now that he had a BM. I've arranged for IV iron today. Hgb not quite low enough for transfusion when considering the latest evidence for a restrictive transfusion approach. Recommend frequent rotation and barrier cream to avoid decub ulcers (he's complaining of posterior soreness). Updated the family in detail. No urgent indications for HD and he's renal dysfunction is not severe enough for it. Cont to renally dose and avoid nephrotoxins as able. I met with the family and answered all their questions. Will close follow with you. Qualifiers: Chronicity: acute Qualified Code(s): J81.0 - Acute pulmonary edema (2) MINOR (acute kidney injury) Current Visit: No Status: Acute See above (3) CKD (chronic kidney disease), stage IV Current Visit: Yes Status: Chronic His CKD has been in the stage IV range, not stage III. (4) Hypertension Current Visit: Yes Status: Chronic Avoiding an ODIN or ARB d/t his renal problems as described above. Qualifiers: Hypertension type: essential hypertension Qualified Code(s): I10 - Essential (primary) hypertension (5) Hypokalemia Current Visit: Yes Status: Acute Periodically replacing from his diuretics (6) Hypomagnesemia Current Visit: Yes Status: Acute continue oral mag (7) Anemia Current Visit: Yes Status: Chronic GIB with + guaiac but he's dyspnea makes him too unstable for endoscopy. S/p IV iron yesterday but apparently some of the infusion was spilled out on his bed according to the daughter, so he may not have received all the Feraheme. Next available dosing in 3+ days. 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 His family was present. He did not affirm N/V today and has started to eat more. He voiced feeling more saddness and voiced hope to go home soon. His daughters and were present. I discussed his UOP with his floor RN. He said that his BM yesterday was not checked for quiac. Objective - Vital Signs Vital signs: Vital Signs Temp Pulse Resp BP Pulse Ox 10/13/17 11:37 98.4 F 60 19 135/49 90 10/13/17 08:03 62 10/13/17 07:19 98.4 F 60 17 138/52 91 10/13/17 03:00 73 10/13/17 02:55 98.3 F 63 20 89 10/12/17 23:49 98.0 F 60 19 127/76 92 10/12/17 22:30 62 10/12/17 19:30 60 10/12/17 18:55 98.0 F 60 20 123/54 89 10/12/17 16:16 98.0 F 59 21 118/60 92 10/12/17 15:41 4 91 Intake and Output 10/12/17 10/13/17 10/13/17 23:59 07:59 15:59 Intake Total 390 / 390 480 / 480 Output Total 1000 / 1000 375 / 375 620 / 620 Balance -610 / -610 -375 / -375 -140 / -140 Intake: IV Fluids 150 / 150 Unasyn 3,000 MG In 0.9 % Sodium 100 / 100 Chloride (Mini-Bag +) 100 ML @ 200 mls/hr IVPB Q12HR [facility] Rx#: [id number] Lasix 80 MG In 0.9 % Sodium 50 / 50 Chloride 50 ML @ 100 mls/hr IVPB ONCE ONE Rx#:[id number] Oral 240 / 240 480 / 480 Output: Catheter 1000 / 1000 375 / 375 620 / 620 Other: Meal Dinner Breakfast Percent of Meal Consumed 10% 50% Weight 68.2 kg Patient Weight 10/13/17 23:59 Weight 68.2 kg - General Appearance Exam: General appearance: Present: NAD, appears started age, frail EENT: Present: ATNC, PERRL, mucous membranes moist Neck: Present: supple Additional Comments: trace basilar crackles with gentle breathing without the appearance of labored breathing. Cardiology: Present: no edema, regular rate, normal S1, normal S2 Gastrointestinal: Present: normoactive bowel sounds, no tenderness, no guarding , no organomegaly Integumentary: Present: no rash, warm and dry Neurologic: Present: no focal deficit, no asterixis, alert and oriented x3 (and generally symmetrical muscle strength except his LUE was slightly weaker than the RUE. ) Musculoskeletal: Present: no deformities, no erythema Psychiatric: Present: cooperative, and normal mood - Lab 10/14/17 04:10 10/14/17 04:10 Most recent lab results ABG pH 7.38 pH Units (7.32-7.45) 10/07/17 10:36 ABG pCO2 44 mmHg (35-45) 10/07/17 10:36 ABG pO2 64 mmHg (85-104) L 10/07/17 10:36 ABG HCO3 26 mEq/L (21-27) 10/07/17 10:36 ABG O2 Saturation 92 % (95-98) L 10/07/17 10:36 Calcium 8.8 mg/dL (8.6-10.3) 10/13/17 06:27 Magnesium 1.7 mg/dL (1.6-2.6) 10/11/17 04:15 - VTE Documentation of Mechanical Device: Intermittent pneumatic compression device Consult Discharge Plan - Plan Referrals: Avel Linares MD [Primary Care Provider] - 10/20/17 2:30 pm ()
--- NOTE | 2017-10-13 15:01 | Internal Med Progress Note ---
Date of Encounter: 10/13/17 Time of Encounter: 11:00 - Assessment and plan (1) Acute respiratory failure with hypoxia Current Visit: Yes Status: Acute Assessment and plan: Continue O2 supplementation. Currently on 4 L/m. Continue diuresis with IV Lasix. High risk for complications (2) Congestive heart failure Current Visit: Yes Status: Acute Assessment and plan: Improving slowly. Urine output improving. Nephrology following and managing diuretics. Most likely patient in cardiorenal syndrome. Qualifiers: Heart failure type: diastolic Heart failure chronicity: acute on chronic Qualified Code(s): I50.33 - Acute on chronic diastolic (congestive) heart failure (3) Hypertension Current Visit: Yes Status: Chronic Assessment and plan: Blood pressure well controlled now. Qualifiers: Hypertension type: essential hypertension Qualified Code(s): I10 - Essential (primary) hypertension (4) Anemia Current Visit: Yes Status: Chronic Assessment and plan: Hemoglobin 7.7. Stool positive for occult blood. Patient will need EGD once his respiratory status improves. We will continue to monitor blood counts. Patient receiving IV iron today. Qualifiers: Anemia type: due to chronic kidney disease Chronic kidney disease stage: stage 4 (severe) Qualified Code(s): N18.4 - Chronic kidney disease, stage 4 ( severe); D63.1 - Anemia in chronic kidney disease (5) Ischemic cardiomyopathy Current Visit: Yes Status: Acute Assessment and plan: Management as above with IV diuretics. Continue aspirin, atenolol, Plavix (6) NSTEMI (non-ST elevated myocardial infarction) Current Visit: Yes Status: Suspected (7) CKD (chronic kidney disease) stage 3, GFR 30-59 ml/min Current Visit: Yes Status: Chronic (8) Speech abnormality Current Visit: Yes Status: Acute Assessment and plan: Appears to have improved.No further workup recommended by neurology. Qualifiers: Speech disturbance type: unspecified speech disturbance Qualified Code(s): R47.9 - Unspecified speech disturbances (9) DVT prophylaxis Current Visit: Yes Status: Acute (10) Pneumonia Current Visit: Yes Status: Suspected Assessment and plan: Patient receiving Unasyn. WBC normal. No leukocytosis. We will transition to Augmentin. Qualifiers: Pneumonia type: aspiration pneumonia Aspiration pneumonia type: due to gastric secretions Laterality: unspecified laterality Qualified Code(s): J69.0 - Pneumonitis due to inhalation of food and vomit - Time Spent With Patient Total time spent is greater than 50% in coordination of care (as documented) at patient's floor/unit and/or counseling patient: - Subjective Interval history: Patient is somnolent but easily awakes. Family present at bedside. He appears to be less dyspneic today. Currently on 4 L O2 supplementation. According to his family, has been more alert and interactive today. Has had decent urine output. No fever reported overnight. - Constitutional Vitals: Temp Pulse Resp BP Pulse Ox 98.4 F 60 19 135/49 90 10/13/17 11:37 10/13/17 11:37 10/13/17 11:37 10/13/17 11:37 10/13/17 11:37 General appearance: Present: mild distress, A&O X 3, no acute distress, answers questions appropriately - Neck Neck exam general surgery: Present: supple, trachea midline. Absent: lymphadenopathy - Respiratory Respiratory exam: Present: CTAB. Absent: accessory muscle use, rales, rhonchi, wheezes - Cardiovascular Cardiovascular exam: Present: RRR, +S1, +S2. Absent: diastolic murmur, gallop, rubs, systolic murmur - GI/Abdominal GI/Abdominal exam: Present: normal bowel sounds, soft, no peritoneal signs. Absent: distended, tenderness - Extremities Exam Extremities exam: Present: warm, radial pulses palpable and symmetrical. Absent : calf tenderness, cyanotic, pedal edema - Neurological Exam Neurological exam: Present: alert, oriented X3, no focal deficits. Absent: facial droop, speech deficit - Skin Skin exam: Present: dry, intact Internal Medicine: Result - Labs CBC & Chem 7: 10/13/17 06:27 10/13/17 06:27 Labs: Short CBC 10/13/17 Range/Units 06:27 WBC 10.2 (4.3-11.1) K/mcL Hgb 7.7 L (12.9-16.9) g/dL Hct 23.5 L (37.5-50.1) % Plt Count 250 (140-400) K/mcL Neutrophils # 7.6 (1.6-8.9) K/mcL BMP 10/13/17 06:27 Sodium 145 Potassium 4.2 Chloride 105 Carbon Dioxide 28 BUN 83 H Creatinine 2.60 H Glucose 134 H Calcium 8.8 Urine 10/12/17 Range/Units 21:47 Urine Color Yellow (Yellow) Urine Clarity Clear (Clear) Urine pH 6.0 (5.0-8.0) pH Units Ur Specific [place] 1.012 (1.010-1.025) Urine Protein 30 H (Neg-Trace) mg/dL Urine Glucose (UA) Normal (Normal) mg/dL - ABG Interpretation ABG results: ABG ABG pH 7.38 pH Units (7.32-7.45) 10/07/17 10:36 ABG pCO2 44 mmHg (35-45) 10/07/17 10:36 ABG pO2 64 mmHg (85-104) L 10/07/17 10:36 ABG O2 Saturation 92 % (95-98) L 10/07/17 10:36 PT/INR, D-dimer PT 11.7 Seconds (9.4-12.1) 10/07/17 13:17 - VTE Documentation of Mechanical Device: Intermittent pneumatic compression device Consult Discharge Plan - Plan Referrals: Avel Linares MD [Primary Care Provider] - 10/20/17 2:30 pm ()
[2017-10-13] MEDS: Amoxicillin/Clavulanate 500 MG TABLET PO SCH (17:42)
[2017-10-13] MEDS: Gabapentin 300 MG CAPSULE PO SCH (20:56)
[2017-10-14 05:05] LABS: Basophils % 0.3 %; Eosinophils # 0.4 K/mcL (0.0-0.6); Eosinophils % 4.2 %; Hematocrit 24.7 % (37.5-50.1); Immature Granulocytes % 0.5 % (0-4); Lymphocytes # 1.3 K/mcL (0.6-4.6); Lymphocytes % 14.1 %; Mean Corpuscular HGB Conc 32.4 g/dL (31.6-35.5); Mean Corpuscular Hemoglobin 31.3 pg (28.0-33.3); Mean Corpuscular Volume 96.5 fL (83.0-100.0); Monocytes # 0.7 K/mcL (0.0-1.3); Nucleated Red Blood Cells 0.2 /100 WBC (0); Platelet Count 307 K/mcL (140-400); Red Blood Count 2.56 M/mcL (4.19-5.50); Red Cell Distribution Width 13.1 % (11.5-14.5); Segmented Neutrophils % 73.9 %
[2017-10-14 05:26] LABS: Albumin 2.8 g/dL (3.5-5.7); Calcium 9.4 mg/dL (8.6-10.3); Magnesium 2.1 mg/dL (1.6-2.6); Potassium 3.9 mEq/L (3.5-5.1)
[2017-10-14] MEDS: *HR* Heparin 5,000 UNIT/ML VIAL SQ SCH ×2 (06:30→16:13)
[2017-10-14] MEDS: Amoxicillin/Clavulanate 500 MG TABLET PO SCH ×2 (06:30→16:13)
[2017-10-14] MEDS: hydrALAZINE 25 MG TABLET PO SCH ×3 (07:43→21:39)
[2017-10-14] MEDS: Aspirin Enteric Coated 81 MG Tablet PO SCH (07:43)
[2017-10-14] MEDS: Isosorbide MONOnitrate (24 HR) 30 MG TAB.ER.24H PO SCH (07:43)
[2017-10-14] MEDS: Sennosides 8.6 MG TABLET PO SCH ×2 (07:43→21:38)
[2017-10-14] MEDS: Magnesium Oxide 400 MG TABLET PO SCH ×2 (07:43→21:38)
[2017-10-14] MEDS: Multivit/Ca/Min/Fe/FA 1 TAB TABLET PO SCH (07:43)
[2017-10-14] MEDS: Furosemide 80 MG in 0.9 % Sodium Chloride 50 ML IVPB SCH ×2 (07:44→16:13)
[2017-10-14] MEDS: Loratadine 10 MG TABLET PO SCH (07:44)
[2017-10-14] MEDS: amLODIPine 5 MG TABLET PO SCH (07:44)
[2017-10-14] MEDS: Artificial Tears SOLN 15 ML BOTTLE BOTH EYES SCH ×4 (07:45→21:39)
--- NOTE | 2017-10-14 10:50 | Nephrology Progress Note ---
Date of Encounter: 10/14/17 Time of Encounter: 10:05 - Assessment and Plan (1) Pulmonary edema Current Visit: Yes Status: Acute Inc free water orally d/t the mild hypernatremia and then would cont Lasix one more day. However he is clearly reaching a point when his renal function has been affected. I thoroughly described that though he does have evidence of pulm edema on the last CXR and elevated BNP, his renal function is stating to worsen from the diuretics, so tomorrow, I'd recommend switching him over to an oral dosing. Pulmonary status may not improve much going forward given his hx of Asbestosis. And so his functional status may also not improve if his respiratory status remains limited. Anemia persists: Feraheme was given yesterday and Aranesp too during this hospitalization; however, he has a multifactorial anemia with a GIB, but he's not stable enough for endoscopy. No urgent indications for HD and he's renal dysfunction is not severe enough for it. Will continue to closely follow with you. My colleague Dr. Bower will be on-call starting tomorrow. Thank you. Qualifiers: Chronicity: acute Qualified Code(s): J81.0 - Acute pulmonary edema (2) MINOR (acute kidney injury) Current Visit: No Status: Acute See above (3) CKD (chronic kidney disease), stage IV Current Visit: Yes Status: Chronic His CKD has been in the stage IV range, not stage III. See above (4) Hypertension Current Visit: Yes Status: Chronic Avoiding an ODIN or ARB d/t his renal problems as described above. Qualifiers: Hypertension type: essential hypertension Qualified Code(s): I10 - Essential (primary) hypertension (5) Hypokalemia Current Visit: Yes Status: Acute Stable (6) Hypomagnesemia Current Visit: Yes Status: Acute Stable and now on oral Mag Oxide. (7) Anemia Current Visit: Yes Status: Chronic See above Qualifiers: Anemia type: due to chronic kidney disease Chronic kidney disease stage: stage 4 (severe) Qualified Code(s): N18.4 - Chronic kidney disease, stage 4 ( severe); D63.1 - Anemia in chronic kidney disease (8) Hypernatremia Current Visit: Yes Status: Acute See above Subjective Principal diagnosis: low hgb, nausea Interval history: Pt was seen and examined in the 2N room. He voiced that he's having pain from his posterior when sitting (per floor RN no decubs), and that his level of breath was about the same. During my interview and exam, the Hospitalist was also present and we both updated the pt, his and daughter regarding his respiratory and renal status. Objective - Vital Signs Vital signs: Vital Signs Temp Pulse Resp BP Pulse Ox 10/14/17 07:59 60 10/14/17 07:35 97.9 F 60 17 135/58 91 10/14/17 04:05 98.3 F 63 18 115/55 90 10/14/17 03:44 78 10/13/17 23:13 60 10/13/17 23:04 98.1 F 60 18 138/64 93 10/13/17 19:51 60 10/13/17 19:03 98.0 F 60 18 133/55 93 10/13/17 17:31 62 10/13/17 16:36 97.6 F 60 16 140/50 92 10/13/17 11:37 98.4 F 60 19 135/49 90 Intake and Output 10/13/17 10/14/17 10/14/17 23:59 07:59 15:59 Intake Total 298 / 298 Output Total 1010 / 1010 350 / 350 Balance -712 / -712 -350 / -350 Intake: IV Fluids 58 / 58 Lasix 80 MG In 0.9 % Sodium 58 / 58 Chloride 50 ML @ 100 mls/hr IVPB BIDDIURETIC MARYANN Rx#: [id number] Oral 240 / 240 Output: Catheter 1010 / 1010 350 / 350 Urethral (Germain) 700 / 700 Other: Meal Dinner Percent of Meal Consumed 100% # Voids 1 1 Weight 68.9 kg Patient Weight 10/14/17 23:59 Weight 68.9 kg - General Appearance Exam: General appearance: Present: well-developed, well-nourished, appears started age , frail EENT: Present: ATNC, PERRL, mucous membranes moist Neck: Present: supple Additional Comments: trace basilar crackles with gentle breathing Cardiology: Present: no edema, regular rate, normal S1, normal S2 Gastrointestinal: Present: normoactive bowel sounds, no tenderness, no guarding , no organomegaly Integumentary: Present: no rash, warm and dry Neurologic: Present: no focal deficit, no asterixis, alert and oriented x3 Musculoskeletal: Present: no deformities, no erythema Psychiatric: Present: cooperative, however he appeared more flat today - Lab 10/14/17 04:10 10/14/17 04:10 Most recent lab results ABG pH 7.38 pH Units (7.32-7.45) 10/07/17 10:36 ABG pCO2 44 mmHg (35-45) 10/07/17 10:36 ABG pO2 64 mmHg (85-104) L 10/07/17 10:36 ABG HCO3 26 mEq/L (21-27) 10/07/17 10:36 ABG O2 Saturation 92 % (95-98) L 10/07/17 10:36 Calcium 9.4 mg/dL (8.6-10.3) 10/14/17 04:10 Magnesium 2.1 mg/dL (1.6-2.6) 10/14/17 04:10 - VTE Documentation of Mechanical Device: Intermittent pneumatic compression device Consult Discharge Plan - Plan Referrals: Avel Linares MD [Primary Care Provider] - 10/20/17 2:30 pm ()
[2017-10-14] MEDS: hydrOXYzine pamoate 25 MG CAPSULE PO PRN ×2 (16:13→21:39)
--- NOTE | 2017-10-14 16:42 | Internal Med Progress Note ---
Date of Encounter: 10/14/17 Time of Encounter: 10:00 - Assessment and plan (1) Acute respiratory failure with hypoxia Current Visit: Yes Status: Acute Assessment and plan: Due to pulmonary edema and congestive heart failure. Continue O2 supplementation. Appears to be stabilizing. Remains on 4 L O2 supplementation. (2) Congestive heart failure Current Visit: Yes Status: Acute Assessment and plan: With cardiorenal syndrome. Continue IV diuretics. Renal function still remains stable. Nephrology following. Patient continues to have decent urine output. Overall I believe the patient does have poor prognosis due to his chronic lung disease with chronic kidney disease and congestive heart failure. I discussed this with his daughter and she understands the situation. Although the patient may be able to get through to his current illness there is a high risk of relapse and recurrence. There is a high risk that the patient may not be able to return to his previous baseline and may have continued functional decline. As such I recommend discussion with palliative care regarding goals of care and possibly even hospice. Patient's daughter is agreeable to this plan. We will consult palliative care and have them discuss this further with the patient and his family. Qualifiers: Heart failure type: diastolic Heart failure chronicity: acute on chronic Qualified Code(s): I50.33 - Acute on chronic diastolic (congestive) heart failure (3) Hypertension Current Visit: Yes Status: Chronic Assessment and plan: Blood pressure remains well controlled Qualifiers: Hypertension type: essential hypertension Qualified Code(s): I10 - Essential (primary) hypertension (4) Anemia Current Visit: Yes Status: Chronic Assessment and plan: Hemoglobin at 8 today. Stool was positive for occult blood. However patient is not stable to undergo EGD at this time. I doubt he would ever be stable to undergo this procedure given his underlying asbestosis, congestive heart failure. We will continue to monitor blood counts. Qualifiers: Anemia type: due to chronic kidney disease Chronic kidney disease stage: stage 4 (severe) Qualified Code(s): N18.4 - Chronic kidney disease, stage 4 ( severe); D63.1 - Anemia in chronic kidney disease (5) Ischemic cardiomyopathy Current Visit: Yes Status: Acute Assessment and plan: Management as above with diuretics. Patient is also on aspirin, atenolol and Plavix. (6) NSTEMI (non-ST elevated myocardial infarction) Current Visit: Yes Status: Suspected Assessment and plan: Mild troponin elevation could be due to demand ischemia. Continue current management with aspirin, Plavix and atenolol. (7) CKD (chronic kidney disease) stage 3, GFR 30-59 ml/min Current Visit: Yes Status: Chronic (8) Speech abnormality Current Visit: Yes Status: Resolved Assessment and plan: This appears to have resolved. Qualifiers: Speech disturbance type: unspecified speech disturbance Qualified Code(s): R47.9 - Unspecified speech disturbances (9) DVT prophylaxis Current Visit: Yes Status: Acute Assessment and plan: On heparin subcutaneous (10) Pneumonia Current Visit: Yes Status: Suspected Assessment and plan: Possible aspiration pneumonia. Chest x-ray done today showed worsening infiltrates bilaterally. Concerning for multifocal pneumonia. However patient does not have any fever, his WBC count is normal. Given that he has no clinical features of pneumonia and he is has been receiving antibiotics, i.e. I will not broaden his antibiotic coverage at this time. We will institute check his sputum for culture and also check urine for Legionella and streptococcus antigens. We will continue Augmentin for now. Recheck CBC and basic panel tomorrow. However if patient develops fever or bandemia, we will broaden antibiotic spectrum. Qualifiers: Pneumonia type: aspiration pneumonia Aspiration pneumonia type: due to gastric secretions Laterality: unspecified laterality Qualified Code(s): J69.0 - Pneumonitis due to inhalation of food and vomit - Time Spent With Patient Total time spent is greater than 50% in coordination of care (as documented) at patient's floor/unit and/or counseling patient: - Subjective Interval history: Patient is awake and alert. Denies any chest pain. Feels just about the same as yesterday. Denies any chest pain. Denies shortness of breath but remains on 4 L nasal cannula. - Constitutional Vitals: Temp Pulse Resp BP Pulse Ox 97.8 F 60 16 127/53 94 10/14/17 12:38 10/14/17 12:38 10/14/17 12:38 10/14/17 12:38 10/14/17 12:38 General appearance: Present: mild distress, A&O X 3, no acute distress, answers questions appropriately - Neck Neck exam general surgery: Present: supple, trachea midline. Absent: lymphadenopathy - Respiratory Respiratory exam: Absent: accessory muscle use, rales, rhonchi, wheezes Additional comments: Bilateral crackles - Cardiovascular Cardiovascular exam: Present: RRR, +S1, +S2. Absent: diastolic murmur, gallop, rubs, systolic murmur - GI/Abdominal GI/Abdominal exam: Present: normal bowel sounds, soft, no peritoneal signs. Absent: distended, tenderness - Extremities Exam Extremities exam: Present: warm, radial pulses palpable and symmetrical. Absent : calf tenderness, cyanotic, pedal edema - Neurological Exam Neurological exam: Present: alert, oriented X3, no focal deficits. Absent: facial droop, speech deficit - Skin Skin exam: Present: dry, intact Internal Medicine: Result - Labs CBC & Chem 7: 10/14/17 04:10 10/14/17 04:10 Labs: Short CBC 10/14/17 Range/Units 04:10 WBC 9.5 (4.3-11.1) K/mcL Hgb 8.0 L (12.9-16.9) g/dL Hct 24.7 L (37.5-50.1) % Plt Count 307 (140-400) K/mcL Neutrophils # 7.0 (1.6-8.9) K/mcL BMP 10/14/17 04:10 Sodium 147 H Potassium 3.9 Chloride 104 Carbon Dioxide 32 H BUN 85 H Creatinine 2.91 H Glucose 126 H Calcium 9.4 Liver Function 10/14/17 Range/Units 04:10 Albumin 2.8 L (3.5-5.7) g/dL - ABG Interpretation ABG results: ABG ABG pH 7.38 pH Units (7.32-7.45) 10/07/17 10:36 ABG pCO2 44 mmHg (35-45) 10/07/17 10:36 ABG pO2 64 mmHg (85-104) L 10/07/17 10:36 ABG O2 Saturation 92 % (95-98) L 10/07/17 10:36 PT/INR, D-dimer PT 11.7 Seconds (9.4-12.1) 10/07/17 13:17 - Impressions Impressions Chest X-Ray 10/14/17 07:00 IMPRESSION: Persistent multifocal bilateral infiltrates, with mild increased airspace disease in the right upper lobe. Small pleural effusions. D/ / Dex Silva MD / Dex Silva MD Interpreting Provider: Dex Silva MD - VTE Documentation of Mechanical Device: Intermittent pneumatic compression device Consult Discharge Plan - Plan Referrals: Avel Linares MD [Primary Care Provider] - 10/20/17 2:30 pm ()
[2017-10-14] MEDS: Gabapentin 300 MG CAPSULE PO SCH (21:38)
[2017-10-15] MEDS: hydrOXYzine pamoate 25 MG CAPSULE PO PRN ×2 (03:43→21:45)
[2017-10-15 03:52] LABS: Basophils % 0.4 %; Eosinophils # 0.5 K/mcL (0.0-0.6); Eosinophils % 4.5 %; Hematocrit 25.6 % (37.5-50.1); Hemoglobin 8.1 g/dL (12.9-16.9); Immature Granulocytes % 0.6 % (0-4); Lymphocytes # 1.4 K/mcL (0.6-4.6); Lymphocytes % 13.5 %; Mean Corpuscular HGB Conc 31.6 g/dL (31.6-35.5); Mean Corpuscular Hemoglobin 30.8 pg (28.0-33.3); Mean Corpuscular Volume 97.3 fL (83.0-100.0); Mean Platelet Volume 10.7 fL (9.4-12.4); Monocytes # 0.7 K/mcL (0.0-1.3); Monocytes % 6.4 %; Neutrophils # 7.5 K/mcL (1.6-8.9); Nucleated Red Blood Cells 0.2 /100 WBC (0); Platelet Count 324 K/mcL (140-400); Red Blood Count 2.63 M/mcL (4.19-5.50); Segmented Neutrophils % 74.6 %
[2017-10-15 04:10] LABS: Calcium 9.4 mg/dL (8.6-10.3); Potassium 4.1 mEq/L (3.5-5.1)
[2017-10-15] MEDS: *HR* Heparin 5,000 UNIT/ML VIAL SQ SCH ×2 (06:30→16:15)
[2017-10-15] MEDS: Amoxicillin/Clavulanate 500 MG TABLET PO SCH ×2 (06:30→16:15)
[2017-10-15] MEDS: Multivit/Ca/Min/Fe/FA 1 TAB TABLET PO SCH (07:50)
[2017-10-15] MEDS: amLODIPine 5 MG TABLET PO SCH (07:50)
[2017-10-15] MEDS: Isosorbide MONOnitrate (24 HR) 30 MG TAB.ER.24H PO SCH (07:50)
[2017-10-15] MEDS: Aspirin Enteric Coated 81 MG Tablet PO SCH (07:50)
[2017-10-15] MEDS: hydrALAZINE 25 MG TABLET PO SCH ×3 (07:50→21:32)
[2017-10-15] MEDS: Sennosides 8.6 MG TABLET PO SCH ×2 (07:50→21:32)
[2017-10-15] MEDS: Magnesium Oxide 400 MG TABLET PO SCH ×2 (07:50→21:32)
[2017-10-15] MEDS: Loratadine 10 MG TABLET PO SCH (07:50)
[2017-10-15] MEDS: Ipratropium/Albuterol Neb 3 ML IH PRN (07:51)
[2017-10-15] MEDS: Artificial Tears SOLN 15 ML BOTTLE BOTH EYES SCH ×4 (07:51→21:32)
--- NOTE | 2017-10-15 11:11 | Palliative - Consult Note ---
Date of Encounter: 10/15/17 Time of Encounter: 10:00 - Assessment and Plan (1) Nausea & vomiting Current Visit: Yes Status: Acute Assessment and plan: Patient denies nausea/vomiting during assessment. Patient admitted for N/V. Phenergan Ordered PRN; no doses in last 24 hours. Qualifiers: Vomiting type: unspecified Vomiting Intractability: unspecified Qualified Code(s): R11.2 - Nausea with vomiting, unspecified (2) CAD (coronary artery disease) Current Visit: Yes Status: Acute Assessment and plan: Ejection fraction 55-60%. Denies chest pain. Qualifiers: Coronary Disease-Associated Artery/Lesion type: bypass graft [place] vs. transplanted heart: [place] heart Associated angina: with unstable angina Qualified Code(s): I25.700 - Atherosclerosis of coronary artery bypass graft(s) , unspecified, with unstable angina pectoris (3) CKD (chronic kidney disease), stage IV Current Visit: Yes Status: Chronic Assessment and plan: Nephrology following patient. BUN 86 and Creatinine 2.8. Patient having decent urine output. Continue to avoid nephrotoxins. (4) Dyspnea Current Visit: Yes Status: Acute Assessment and plan: Patient reports increased dyspnea. Oxygen saturation 92% on 4L NC. Continue oxygen therapy. Qualifiers: Dyspnea type: acute respiratory distress Qualified Code(s): R06.03 - Acute respiratory distress (5) Congestive heart failure Current Visit: Yes Status: Acute Qualifiers: Heart failure type: diastolic Heart failure chronicity: acute on chronic Qualified Code(s): I50.33 - Acute on chronic diastolic (congestive) heart failure (6) Goals of care, counseling/discussion Current Visit: Yes Status: Acute Assessment and plan: Conducted family meeting with Sales Performance Analyst Babar, patient, patient's , and patient's daughter Krystin. Patient was quite fickle regarding goals of care. He reported he did not want to return to the hospital, then reported he wanted to go to [place], then he wanted to leave hospital today, and then wanted to stay over the weekend. Patient's expressed desires for patient to return home with [facility]. Patient's daughter Krystin wants to follow patient's wishes; however , expresses concern over her mother making decisions as she is diagnosed with Alzheimer's disease, Parkinson's Disease, and Hallucinations. Patient's presented that she is his decision maker and then Krystin follows. Expressed desire to attempt a family meeting with all children on Wednesday. Krystin verbalized understanding; however, patient's jumped up and became quite forceful that she is the decision maker and reports she has papers to reflect that from the construction quality control manager; inquired whether any new diagnosis since forms drawn, she denies. Concerns presented for patient or his making decisions. Patient reports he is a 100% service connected and if he should decide to go home with hospice, would choose [place] [facility]. Patient agreed to stay for weekend and continue full treatment in hopes of getting stronger prior to discharge. Patient to remain FULL CODE and continue aggressive treatment at this time. I spend 45 minutes face to face with the patient, of which more than 25 minutes was spend in counseling in coordination of care for discharge planning related to chronic lung, heart,and kidney disease. Palliative care has no coverage this weekend; Will follow up on wednesday. (7) Weakness Current Visit: Yes Status: Acute Assessment and plan: Patient reports increased weakness since hospitalized. PT/OT ordered; follow recommendations. Palliative-CN HPI - Data of Consult Patient: new to practice Consult date: 10/14/17 Requesting Physician: Marlene Ferrer MD Primary Care Provider: Avel Linares MD - Consult Narrative Palliative Care/Comfort Measures: Palliative care Reason for consult: Goals of care; possible hospice History of present illness: Mr. Avendaño is a 87 year old male Arrived to [place] ER, on 10/05/17, from Nephrology office; recommendations for laboratory workup and patient denied nausea. Had been seen at Nephrology office for persistent nausea and decreasing hemoglobin. Patient having difficulty with oral intake, concern over possible GI Bleeding; however, unable to be seen by Gastroenterology outpatient. Initial lab work reflected: hgb 10.8, hct 31.5, BUN 39, Creatinine 2.24. EKG Showed: Electronic atrial pacemaker and electronic ventricular pacemaker with abnormal rhythm. Chest xray showed mild bibasilar and right mid lung atelectasis with no focal consolidation. PMH: CHF, CAD, GERD, hyperlipidemia, HTN, kidney stones, HI, CKD stage 4, Thyroid disease, anemia, PUD, Sleep apnea, Bracycardia, Gout, and depression. Patient admitted for Nausea , vomiting, MINOR superimposed on CKD, Anemia, DM, and HTN. Gastroenterology consulted: recommend continue IVF and antiemetics, EGD scheduled for next day. Nephrology consult: avoid nephrotoxins and renal dosing with strict I&O. Head CT showing patchy areas of small vessel ischemic changes noted bilaterally, asymmetric low density in external capsule regions, low density in the left lateral lentiform nucleus region, and prior infarct of the left caudate head. new onset of SOB and desaturation, BiPAP placed for respiratory support. Pulmonary consult: new diagnosis of pulmonary edema, continue oxygen support and antibiotics. Cardiology consult for New STEMI, CKD, and CAD. 10/09/17 Neurology consult for slurred speech; recommend continued supportive care. Patient and family offered UF, family and patient refused as they feel too invasive on 10/12/17. Repeat chest xray shows persistent multifocal bilateral infiltrates with mild increased airspace disease in RUL and small pleural effusions. Palliative care consult for goals of care and possibly hospice consideration. Conducted family meeting with patients , patient, and patients daughter Krystin, see goals of care. Sales Performance Analyst Babar present at bedside for family meeting and assessment. Patient is alert to person and place; disoriented to time on assessment. Patient denies pain, anxiety, nausea, or vomiting during assessment. Reports increased dyspnea. Oxygen appears to be assisting with dyspnea; oxygen saturation 91-92% during assessment. Patient resting comfortably in bed upon arrival for assessment. CC: Marlene Ferrer MD Past Med Surg Social Fam HX - Past Medical History Medical history: CHF, coronary artery disease, diabetes, GERD, hyperlipidemia, hypertension, kidney stones, myocardial infarction, renal disease, thyroid disease Additional medical history: anemia, peptic ulcer, sleep apnea, bradycardia, gout Psychiatric history: depression - Past Surgical History Surgical History: cholecystectomy, coronary bypass (CABG), pacemaker/AICD Additional surgical history: 2 heart stents, sinus surgery - Social History Smoking Status: Former smoker Smokeless Tobacco Status: No Alcohol use: none Drug use: none - Family History Mother Living Status: Hx Family Cardiac Disorders: Yes Father Living Status: Hx Family Cardiac Disorders: Yes Sister Living Status: Hx Family Cardiac Disorders: Yes (cardiac dx) Brother Living Status: Hx Family Cancer: Yes (colon) Medications and Allergies Amlodipine Besylate 10 mg PO DAILY 08/20/17 [History] Aspirin [Lo-Dose Aspirin EC] 81 mg PO DAILY 08/20/17 [History] Atenolol [Tenormin] 50 mg PO DAILY 08/20/17 [History] Atorvastatin Calcium [Lipitor] 80 mg PO HS 08/20/17 [History] Calcitriol [Rocaltrol] 0.25 mcg PO DAILY 08/20/17 [History] Cetirizine HCl [All Day Allergy] 10 mg PO DAILY 08/20/17 [History] Clopidogrel [Plavix] 75 mg PO DAILY 08/20/17 [History] Febuxostat [Uloric] 40 mg PO DAILY 08/20/17 [History] Gabapentin [Neurontin] 300 mg PO QAM 08/20/17 [History] Gabapentin [Neurontin] 600 mg PO HS 08/20/17 [History] Ipratropium [place] 1 spr NS BID 08/20/17 [History] Levothyroxine [Synthroid] 50 mcg PO 0630 08/20/17 [History] Mirabegron [Myrbetriq] 50 mg PO DAILY 08/20/17 [History] [place]-3/Dha/Epa/Fish Oil [Fish Oil 500 mg Softgel] 1 cap PO DAILY 08/20/17 [ History] Isosorbide MONOnitrate (24 HR) [Imdur] 30 mg PO DAILY #30 tab.er.24h 08/22/17 [ Rx] Nitroglycerin [Nitrostat] 0.4 mg SL Q5MIN PRN #30 tab.subl 08/22/17 [Rx] Pantoprazole Sodium 40 mg PO DAILY #30 tablet.dr 08/22/17 [Rx] Ondansetron ODT [Zofran ODT] 4 mg SL Q4HR PRN #14 tab.rapdis 09/25/17 [Rx] Acetaminophen [Tylenol] 650 mg PO Q6HR PRN tablet 09/30/17 [Rx] Docusate [Colace] 100 mg PO DAILY PRN capsule 09/30/17 [Rx] Multivit/Ca/Min/Fe/FA [Thera M Plus] 1 tab PO DAILY tablet 09/30/17 [Rx] hydrALAZINE [HydrALAZINE] 25 mg PO Q8HR 30 Days #90 tablet 09/30/17 [Rx] hydroCHLOROthiazide [Hydrochlorothiazide] 25 mg PO DAILY 10/05/17 [History] 3 Allergy/AdvReac Type Severity Reaction Status Date / Time tape AdvReac skin Uncoded 10/05/17 09:11 breakdown - Constitutional Constitutional ROS PAL: decreased appetite - Cardiovascular Cardiovascular ROS: dyspnea on exertion - Gastrointestinal Gastrointestinal: nausea, vomiting - Psychiatric Psychiatric general PM: confusion Palliative Care-Exam - Constitutional Vitals: Temp Pulse Resp BP Pulse Ox 98.1 F 60 24 134/50 94 10/15/17 07:39 10/15/17 08:01 10/15/17 07:51 10/15/17 07:39 10/15/17 07:51 General appearance: Present: cooperative, no acute distress - Head Head Exam: Present: atraumatic, normal inspection - Eye Eye exam: Present: EOMI, normal appearance, PERRL, conjuntiva pink. Absent: nystagmus, periorbital swelling, periorbital tenderness - ENT ENT exam: Present: mucous membranes dry, normal external ear exam - Expanded ENT Exam Mouth Exam: Present: normal external inspection. Absent: drooling - Neck Neck exam: Present: full ROM, normal inspection - Respiratory Respiratory exam: Present: CTAB. Absent: accessory muscle use - Cardiovascular Cardiovascular exam: Present: bradycardia, +S1, +S2 - Expanded Cardiovascular Exam Peripheral pulses: 2+: Radial (L), Radial (R), Dorsalis Pedis (L) PM, Dorsalis Pedis (R) PM - GI/Abdominal Exam GI/Abdominal exam: Present: normal bowel sounds, soft. Absent: tenderness - Rectal Rectal Exam: Present: deferred - Extremities Exam Extremities exam: Present: normal inspection. Absent: calf tenderness, pedal edema - Neurological Exam Neurological exam: Present: alert, altered, strengths equal and symetr throughout. Absent: oriented X3 - Expanded Neurological Exam Coma Scale Eye Opening: Spontaneous Coma Scale Motor Response: Obeys Commands Coma Scale Verbal Response: Confused Coma Scale Total: 14 - Psychiatric Psychiatric exam: Present: normal affect, normal mood - Skin Skin exam: Present: dry Internal Medicine - CN: Reslt - Labs CBC & Chem 7: 10/15/17 03:25 10/15/17 03:25 Labs: Short CBC 10/15/17 Range/Units 03:25 WBC 10.1 (4.3-11.1) K/mcL Hgb 8.1 L (12.9-16.9) g/dL Hct 25.6 L (37.5-50.1) % Plt Count 324 (140-400) K/mcL Neutrophils # 7.5 (1.6-8.9) K/mcL BMP 10/15/17 03:25 Sodium 146 H Potassium 4.1 Chloride 102 Carbon Dioxide 35 H BUN 86 H Creatinine 2.80 H Glucose 130 H Calcium 9.4 - ABG Interpretation ABG results: ABG ABG pH 7.38 pH Units (7.32-7.45) 10/07/17 10:36 ABG pCO2 44 mmHg (35-45) 10/07/17 10:36 ABG pO2 64 mmHg (85-104) L 10/07/17 10:36 ABG O2 Saturation 92 % (95-98) L 10/07/17 10:36 PT/INR, D-dimer PT 11.7 Seconds (9.4-12.1) 10/07/17 13:17 Consult Discharge Plan - Plan Referrals: Avel Linares MD [Primary Care Provider] - 10/20/17 2:30 pm () Palliative Quality Palliative Quality: Screen for Code Status: Yes, Screen for Goals of Care: Yes, Screen for Pain: Yes, If Pain Regimen Started, Initiate Bowel Regimen: NA, Screen for Nausea/Vomitting: Yes
--- NOTE | 2017-10-15 14:53 | Nephrology Progress Note ---
Date of Encounter: 10/15/17 Time of Encounter: 12:00 - Assessment and Plan (1) MINOR (acute kidney injury) Current Visit: No Status: Acute SCr slightly better at 2.8, GFR 22 from 2.91, GFR 21 but generally running less than baseline since diuresis. UOP noted 1070cc in the past 24hrs now off iv lasix, will monitor Continue to avoid nephrotoxins if possible (2) CKD (chronic kidney disease) stage 3, GFR 30-59 ml/min Current Visit: Yes Status: Chronic Baseline GFR typically 20-30s (3) Anemia Current Visit: Yes Status: Chronic Hgb fairly stable at 8.1, will monitor Qualifiers: Anemia type: due to chronic kidney disease Chronic kidney disease stage: stage 4 (severe) Qualified Code(s): N18.4 - Chronic kidney disease, stage 4 ( severe); D63.1 - Anemia in chronic kidney disease (4) Congestive heart failure Current Visit: Yes Status: Acute Strict I/Os Qualifiers: Heart failure type: diastolic Heart failure chronicity: acute on chronic Qualified Code(s): I50.33 - Acute on chronic diastolic (congestive) heart failure Subjective Principal diagnosis: low hgb, nausea Interval history: Interim events noted, pt seen and examined resting but arousbale with family at bedside. Seen by palliative care today Objective - Vital Signs Vital signs: Vital Signs Temp Pulse Resp BP Pulse Ox 10/15/17 11:23 97.8 F 60 18 122/53 90 10/15/17 11:20 60 10/15/17 08:01 60 10/15/17 07:51 24 94 10/15/17 07:39 98.1 F 60 18 134/50 93 10/15/17 03:33 98.1 F 60 18 134/56 90 10/15/17 03:30 60 10/15/17 00:00 60 10/14/17 23:18 98.1 F 71 19 129/75 90 10/14/17 20:30 67 10/14/17 19:26 98.3 F 60 18 132/54 90 10/14/17 18:04 97.7 F 59 15 131/52 91 Intake and Output 10/14/17 10/15/17 10/15/17 23:59 07:59 15:59 Intake Total 100 / 100 400 / 400 240 / 240 Output Total 420 / 420 Balance -320 / -320 400 / 400 240 / 240 Intake: Oral 100 / 100 400 / 400 240 / 240 Output: Urine 420 / 420 Other: Meal Dinner Lunch Percent of Meal Consumed 100% 85% # Voids 1 - General Appearance General appearance: Present: chronically ill, fatigue, frail EENT: Present: ATNC, mucous membranes moist Neck: Present: no JVD, supple Additional Comments: good areation ant bilat Cardiology: Present: no edema, normal S1, normal S2 Gastrointestinal: Present: no tenderness, no guarding Integumentary: Present: warm and dry Neurologic: Present: no focal deficit Musculoskeletal: Present: no deformities Psychiatric: Present: mood/affect appropriate, cooperative - Lab 10/17/17 06:25 10/17/17 06:25 Most recent lab results ABG pH 7.38 pH Units (7.32-7.45) 10/07/17 10:36 ABG pCO2 44 mmHg (35-45) 10/07/17 10:36 ABG pO2 64 mmHg (85-104) L 10/07/17 10:36 ABG HCO3 26 mEq/L (21-27) 10/07/17 10:36 ABG O2 Saturation 92 % (95-98) L 10/07/17 10:36 Calcium 9.4 mg/dL (8.6-10.3) 10/15/17 03:25 Magnesium 2.1 mg/dL (1.6-2.6) 10/14/17 04:10 - VTE Documentation of Mechanical Device: Intermittent pneumatic compression device Consult Discharge Plan - Plan Referrals: Avel Linares MD [Primary Care Provider] - 10/20/17 2:30 pm ()
--- NOTE | 2017-10-15 16:32 | Internal Med Progress Note ---
Date of Encounter: 10/15/17 Time of Encounter: 10:35 - Assessment and plan (1) Acute respiratory failure with hypoxia Current Visit: Yes Status: Acute Assessment and plan: Patient remains in a stable current condition currently but no significant improvement overall. Remains on 5 L nasal cannula supplementation. Continuing diuresis per nephrology recommendations. Poor prognosis overall. (2) Congestive heart failure Current Visit: Yes Status: Acute Assessment and plan: With cardiorenal syndrome. Has been receiving Lasix intravenously. Has had good response to it. Renal function remained stable. Nephrology following. Appreciate palliative care input. At this time patient to remain full code. However another meeting is planned for Wednesday with more family members present for further discussion and recommendations. Qualifiers: Heart failure type: diastolic Heart failure chronicity: acute on chronic Qualified Code(s): I50.33 - Acute on chronic diastolic (congestive) heart failure (3) Hypertension Current Visit: Yes Status: Chronic Assessment and plan: Blood pressure remains well controlled. Continue Imdur, atenolol Qualifiers: Hypertension type: essential hypertension Qualified Code(s): I10 - Essential (primary) hypertension (4) Anemia Current Visit: Yes Status: Chronic Assessment and plan: Stool positive for occult blood but hemoglobin levels have remained stable. Patient is not in a stable condition to undergo EGD at this time. Qualifiers: Anemia type: due to chronic kidney disease Chronic kidney disease stage: stage 4 (severe) Qualified Code(s): N18.4 - Chronic kidney disease, stage 4 ( severe); D63.1 - Anemia in chronic kidney disease (5) Ischemic cardiomyopathy Current Visit: Yes Status: Acute Assessment and plan: Continue current medications including aspirin, atenolol and Lasix per nephrology recommendations. (6) NSTEMI (non-ST elevated myocardial infarction) Current Visit: Yes Status: Suspected (7) CKD (chronic kidney disease) stage 3, GFR 30-59 ml/min Current Visit: Yes Status: Chronic Assessment and plan: Renal function remained stable. Nephrology following (8) Speech abnormality Current Visit: Yes Status: Resolved Qualifiers: Speech disturbance type: unspecified speech disturbance Qualified Code(s): R47.9 - Unspecified speech disturbances (9) DVT prophylaxis Current Visit: Yes Status: Acute Assessment and plan: On subcutaneous heparin (10) Pneumonia Current Visit: Yes Status: Acute Assessment and plan: Patient receiving Augmentin. Sputum cultures are pending. We will follow results. No clinical signs of acute worsening or recurrent pneumonia. Qualifiers: Pneumonia type: aspiration pneumonia Aspiration pneumonia type: due to gastric secretions Laterality: unspecified laterality Qualified Code(s): J69.0 - Pneumonitis due to inhalation of food and vomit - Time Spent With Patient Total time spent is greater than 50% in coordination of care (as documented) at patient's floor/unit and/or counseling patient: - Subjective Interval history: Patient briefly while patient was in family meeting with palliative care. He is awake and alert. Denies any chest pain. Shortness of breath is improving. No fever or chills reported overnight. No nausea or vomiting. Does continue to have good urine output. - Constitutional Vitals: Temp Pulse Resp BP Pulse Ox 98.0 F 60 18 132/52 88 10/15/17 16:15 10/15/17 16:21 10/15/17 16:15 10/15/17 16:15 10/15/17 16:15 General appearance: Present: mild distress, A&O X 3, no acute distress, answers questions appropriately - Respiratory Respiratory exam: Absent: accessory muscle use, rales, rhonchi, wheezes Additional comments: Bilateral crackles present - Cardiovascular Cardiovascular exam: Present: RRR, +S1, +S2. Absent: diastolic murmur, gallop, rubs, systolic murmur - GI/Abdominal GI/Abdominal exam: Present: normal bowel sounds, soft, no peritoneal signs. Absent: distended, tenderness - Extremities Exam Extremities exam: Present: warm, radial pulses palpable and symmetrical. Absent : calf tenderness, cyanotic, pedal edema - Neurological Exam Neurological exam: Present: alert, oriented X3, no focal deficits. Absent: facial droop, speech deficit - Skin Skin exam: Present: dry, intact Internal Medicine: Result - Labs CBC & Chem 7: 10/15/17 03:25 10/15/17 03:25 Labs: Short CBC 10/15/17 Range/Units 03:25 WBC 10.1 (4.3-11.1) K/mcL Hgb 8.1 L (12.9-16.9) g/dL Hct 25.6 L (37.5-50.1) % Plt Count 324 (140-400) K/mcL Neutrophils # 7.5 (1.6-8.9) K/mcL BMP 10/15/17 03:25 Sodium 146 H Potassium 4.1 Chloride 102 Carbon Dioxide 35 H BUN 86 H Creatinine 2.80 H Glucose 130 H Calcium 9.4 - ABG Interpretation ABG results: ABG ABG pH 7.38 pH Units (7.32-7.45) 10/07/17 10:36 ABG pCO2 44 mmHg (35-45) 10/07/17 10:36 ABG pO2 64 mmHg (85-104) L 10/07/17 10:36 ABG O2 Saturation 92 % (95-98) L 10/07/17 10:36 PT/INR, D-dimer PT 11.7 Seconds (9.4-12.1) 10/07/17 13:17 - VTE Documentation of Mechanical Device: Intermittent pneumatic compression device Consult Discharge Plan - Plan Referrals: Avel Linares MD [Primary Care Provider] - 10/20/17 2:30 pm ()
[2017-10-15] MEDS: Gabapentin 300 MG CAPSULE PO SCH (21:32)
[2017-10-16] MEDS: *HR* Heparin 5,000 UNIT/ML VIAL SQ SCH ×2 (06:01→17:50)
[2017-10-16] MEDS: Amoxicillin/Clavulanate 500 MG TABLET PO SCH ×2 (06:02→17:50)
[2017-10-16 07:42] LABS: Calcium 9.5 mg/dL (8.6-10.3); Potassium 4.4 mEq/L (3.5-5.1)
[2017-10-16 07:50] LABS: Basophils # 0.1 K/mcL (0.0-0.2); Basophils % 0.5 %; Eosinophils # 0.3 K/mcL (0.0-0.6); Eosinophils % 2.5 %; Hematocrit 27.8 % (37.5-50.1); Hemoglobin 8.8 g/dL (12.9-16.9); Immature Granulocytes % 0.9 % (0-4); Lymphocytes # 1.4 K/mcL (0.6-4.6); Lymphocytes % 12.8 %; Mean Corpuscular HGB Conc 31.7 g/dL (31.6-35.5); Mean Corpuscular Hemoglobin 31.4 pg (28.0-33.3); Mean Corpuscular Volume 99.3 fL (83.0-100.0); Mean Platelet Volume 10.5 fL (9.4-12.4); Monocytes # 0.7 K/mcL (0.0-1.3); Monocytes % 6.1 %; Neutrophils # 8.6 K/mcL (1.6-8.9); Nucleated Red Blood Cells 0.2 /100 WBC (0); Platelet Count 358 K/mcL (140-400); Red Cell Distribution Width 13.1 % (11.5-14.5); Segmented Neutrophils % 77.2 %
[2017-10-16] MEDS: Artificial Tears SOLN 15 ML BOTTLE BOTH EYES SCH ×4 (09:45→19:46)
[2017-10-16] MEDS: Magnesium Oxide 400 MG TABLET PO SCH ×2 (09:46→19:47)
[2017-10-16] MEDS: Multivit/Ca/Min/Fe/FA 1 TAB TABLET PO SCH (09:46)
[2017-10-16] MEDS: Sennosides 8.6 MG TABLET PO SCH ×2 (09:46→19:47)
[2017-10-16] MEDS: Isosorbide MONOnitrate (24 HR) 30 MG TAB.ER.24H PO SCH (09:46)
[2017-10-16] MEDS: Aspirin Enteric Coated 81 MG Tablet PO SCH (09:46)
[2017-10-16] MEDS: amLODIPine 5 MG TABLET PO SCH (09:46)
[2017-10-16] MEDS: hydrALAZINE 25 MG TABLET PO SCH ×3 (09:46→19:47)
[2017-10-16] MEDS: Loratadine 10 MG TABLET PO SCH (09:46)
--- NOTE | 2017-10-16 11:36 | Nephrology Progress Note ---
Date of Encounter: 10/16/17 Time of Encounter: 12:00 - Assessment and Plan (1) MINOR (acute kidney injury) Current Visit: No Status: Acute SCr stable at 2.73, GFR22, will monitor. UOP not documneted in the past 24hrs off diuretics, may resumed po diuretics, will monitor Continue to avoid nephrotoxins if possible (2) Congestive heart failure Current Visit: Yes Status: Acute Strict I/Os po diuretics Qualifiers: Heart failure type: diastolic Heart failure chronicity: acute on chronic Qualified Code(s): I50.33 - Acute on chronic diastolic (congestive) heart failure (3) Anemia Current Visit: Yes Status: Chronic Hgb fairly stable at 8.1, will monitor Qualifiers: Anemia type: due to chronic kidney disease Chronic kidney disease stage: stage 4 (severe) Qualified Code(s): N18.4 - Chronic kidney disease, stage 4 ( severe); D63.1 - Anemia in chronic kidney disease (4) CKD (chronic kidney disease) stage 3, GFR 30-59 ml/min Current Visit: Yes Status: Chronic Baseline GFR typically 20-30s Subjective Principal diagnosis: low hgb, nausea Interval history: Pt seen and examined briefly while resting comfortably, no family at bedside currently Objective - Vital Signs Vital signs: Vital Signs Temp Pulse Resp BP Pulse Ox 10/16/17 11:30 97.9 F 59 18 125/54 93 10/16/17 09:57 60 10/16/17 07:15 98.2 F 60 18 136/59 94 10/16/17 03:39 98.2 F 60 17 148/60 91 10/16/17 00:19 98.2 F 60 16 134/58 91 10/15/17 21:30 62 10/15/17 20:00 98.1 F 62 16 144/57 92 10/15/17 16:21 60 10/15/17 16:15 98.0 F 62 18 132/52 88 Intake and Output 10/15/17 10/16/17 10/16/17 23:59 07:59 15:59 Intake Total 360 / 360 240 / 240 Output Total 200 / 200 Balance 360 / 360 -200 / -200 240 / 240 Intake: Oral 360 / 360 240 / 240 Output: Urine 200 / 200 Other: Meal Dinner Breakfast Percent of Meal Consumed 85% 20% Weight 68.8 kg Patient Weight 10/16/17 23:59 Weight 68.8 kg - General Appearance General appearance: Present: chronically ill, fatigue, frail EENT: Present: ATNC, mucous membranes moist Neck: Present: no JVD, supple Additional Comments: good areation ant bilat Cardiology: Present: no edema, normal S1, normal S2 Gastrointestinal: Present: no tenderness, no guarding Integumentary: Present: warm and dry Neurologic: Present: no focal deficit Musculoskeletal: Present: no deformities Psychiatric: Present: mood/affect appropriate, cooperative - Lab 10/17/17 06:25 10/17/17 06:25 Most recent lab results ABG pH 7.38 pH Units (7.32-7.45) 10/07/17 10:36 ABG pCO2 44 mmHg (35-45) 10/07/17 10:36 ABG pO2 64 mmHg (85-104) L 10/07/17 10:36 ABG HCO3 26 mEq/L (21-27) 10/07/17 10:36 ABG O2 Saturation 92 % (95-98) L 10/07/17 10:36 Calcium 9.5 mg/dL (8.6-10.3) 10/16/17 07:14 Magnesium 2.1 mg/dL (1.6-2.6) 10/14/17 04:10 - VTE Documentation of Mechanical Device: Intermittent pneumatic compression device Consult Discharge Plan - Plan Referrals: Avel Linares MD [Primary Care Provider] - 10/20/17 2:30 pm ()
--- NOTE | 2017-10-16 14:56 | Internal Med Progress Note ---
Date of Encounter: 10/16/17 Time of Encounter: 09:00 - Assessment and plan (1) Acute respiratory failure with hypoxia Current Visit: Yes Status: Acute Assessment and plan: Condition remains stable. Patient continues to require 4-5 L O2 supplementation. Nephrology following. Due to pulmonary edema from congestive heart failure. (2) Congestive heart failure Current Visit: Yes Status: Acute Assessment and plan: Nephrology managing volume status. Patient did not receive Lasix yesterday. On fluid restriction. Has good urine output. Remains at high risk for complications. Qualifiers: Heart failure type: diastolic Heart failure chronicity: acute on chronic Qualified Code(s): I50.33 - Acute on chronic diastolic (congestive) heart failure (3) Hypertension Current Visit: Yes Status: Chronic Assessment and plan: Blood pressure remains well controlled. No changes to current medication regimen. Qualifiers: Hypertension type: essential hypertension Qualified Code(s): I10 - Essential (primary) hypertension (4) Anemia Current Visit: Yes Status: Chronic Assessment and plan: Hemoglobin levels are stable. Appears to have responded well to Feraheme that he received Qualifiers: Anemia type: due to chronic kidney disease Chronic kidney disease stage: stage 4 (severe) Qualified Code(s): N18.4 - Chronic kidney disease, stage 4 ( severe); D63.1 - Anemia in chronic kidney disease (5) Ischemic cardiomyopathy Current Visit: Yes Status: Acute Assessment and plan: Continue aspirin, Plavix, isosorbide and atenolol. (6) NSTEMI (non-ST elevated myocardial infarction) Current Visit: Yes Status: Suspected Assessment and plan: Conservative management. (7) CKD (chronic kidney disease) stage 3, GFR 30-59 ml/min Current Visit: Yes Status: Chronic Assessment and plan: Renal function remained stable. Creatinine 2.73 today. (8) Speech abnormality Current Visit: Yes Status: Resolved Qualifiers: Speech disturbance type: unspecified speech disturbance Qualified Code(s): R47.9 - Unspecified speech disturbances (9) DVT prophylaxis Current Visit: Yes Status: Acute Assessment and plan: On subcutaneous heparin (10) Pneumonia Current Visit: Yes Status: Acute Assessment and plan: On Augmentin. Will complete treatment for aspiration pneumonia today. Qualifiers: Pneumonia type: aspiration pneumonia Aspiration pneumonia type: due to gastric secretions Laterality: unspecified laterality Qualified Code(s): J69.0 - Pneumonitis due to inhalation of food and vomit (11) Delirium Current Visit: Yes Status: Acute Assessment and plan: Due to acute illness and prolonged stay in hospital and underlying advanced age. Will place patient on small dose of risperidone at bedtime. - Time Spent With Patient Total time spent is greater than 50% in coordination of care (as documented) at patient's floor/unit and/or counseling patient: - Subjective Interval history: Patient is awake and alert. Family present at bedside. Patient apparently was not able to sleep much last night and was agitated. Symptoms have now resolved. He denies any chest pain or palpitations. Denies any shortness of breath at this time. No abdominal pain. No nausea or vomiting. - Constitutional Vitals: Temp Pulse Resp BP Pulse Ox 97.9 F 60 18 125/54 93 10/16/17 11:30 10/16/17 11:40 10/16/17 11:30 10/16/17 11:30 10/16/17 11:30 General appearance: Present: mild distress, A&O X 3, no acute distress, answers questions appropriately - Neck Neck exam general surgery: Present: supple, trachea midline. Absent: lymphadenopathy - Respiratory Respiratory exam: Present: prolonged expiratory phase. Absent: accessory muscle use, rales, rhonchi, wheezes Additional comments: Bilateral crackles - Cardiovascular Cardiovascular exam: Present: RRR, +S1, +S2. Absent: diastolic murmur, gallop, rubs, systolic murmur - GI/Abdominal GI/Abdominal exam: Present: normal bowel sounds, soft, no peritoneal signs. Absent: distended, tenderness - Extremities Exam Extremities exam: Present: warm, radial pulses palpable and symmetrical. Absent : calf tenderness, cyanotic, pedal edema - Neurological Exam Neurological exam: Present: oriented X3, no focal deficits. Absent: facial droop, speech deficit Internal Medicine: Result - Labs CBC & Chem 7: 10/16/17 07:14 10/16/17 07:14 Labs: Short CBC 10/16/17 Range/Units 07:14 WBC 11.2 H (4.3-11.1) K/mcL Hgb 8.8 L (12.9-16.9) g/dL Hct 27.8 L (37.5-50.1) % Plt Count 358 (140-400) K/mcL Neutrophils # 8.6 (1.6-8.9) K/mcL BMP 10/16/17 07:14 Sodium 146 H Potassium 4.4 Chloride 103 Carbon Dioxide 33 H BUN 89 H Creatinine 2.73 H Glucose 133 H Calcium 9.5 - ABG Interpretation ABG results: ABG ABG pH 7.38 pH Units (7.32-7.45) 10/07/17 10:36 ABG pCO2 44 mmHg (35-45) 10/07/17 10:36 ABG pO2 64 mmHg (85-104) L 10/07/17 10:36 ABG O2 Saturation 92 % (95-98) L 10/07/17 10:36 PT/INR, D-dimer PT 11.7 Seconds (9.4-12.1) 10/07/17 13:17 - VTE Documentation of Mechanical Device: Intermittent pneumatic compression device Consult Discharge Plan - Plan Referrals: Avel Linares MD [Primary Care Provider] - 10/20/17 2:30 pm ()
[2017-10-16] MEDS: Furosemide 40 MG TABLET PO SCH (17:50)
[2017-10-16] MEDS: risperiDONE 0.25 MG TABLET PO SCH (19:46)
[2017-10-16] MEDS: Gabapentin 300 MG CAPSULE PO SCH (19:46)
[2017-10-17] MEDS: *HR* Heparin 5,000 UNIT/ML VIAL SQ SCH ×2 (05:43→18:04)
[2017-10-17 06:50] LABS: Basophils % 0.4 %; Eosinophils # 0.3 K/mcL (0.0-0.6); Eosinophils % 2.6 %; Hematocrit 24.9 % (37.5-50.1); Hemoglobin 7.8 g/dL (12.9-16.9); Immature Granulocytes % 0.8 % (0-4); Lymphocytes # 1.4 K/mcL (0.6-4.6); Lymphocytes % 14.2 %; Mean Corpuscular HGB Conc 31.3 g/dL (31.6-35.5); Mean Corpuscular Hemoglobin 31.3 pg (28.0-33.3); Mean Platelet Volume 10.6 fL (9.4-12.4); Monocytes # 0.7 K/mcL (0.0-1.3); Monocytes % 6.7 %; Neutrophils # 7.6 K/mcL (1.6-8.9); Platelet Count 338 K/mcL (140-400); Red Blood Count 2.49 M/mcL (4.19-5.50); Red Cell Distribution Width 13.2 % (11.5-14.5); Segmented Neutrophils % 75.3 %
[2017-10-17 07:05] LABS: Calcium 9.4 mg/dL (8.6-10.3); Potassium 4.5 mEq/L (3.5-5.1)
[2017-10-17] MEDS: Isosorbide MONOnitrate (24 HR) 30 MG TAB.ER.24H PO SCH (08:04)
[2017-10-17] MEDS: Sennosides 8.6 MG TABLET PO SCH ×2 (08:05→19:20)
[2017-10-17] MEDS: Multivit/Ca/Min/Fe/FA 1 TAB TABLET PO SCH (08:05)
[2017-10-17] MEDS: Furosemide 40 MG TABLET PO SCH (08:05)
[2017-10-17] MEDS: Aspirin Enteric Coated 81 MG Tablet PO SCH (08:06)
[2017-10-17] MEDS: Loratadine 10 MG TABLET PO SCH (08:06)
[2017-10-17] MEDS: amLODIPine 5 MG TABLET PO SCH (08:06)
[2017-10-17] MEDS: Magnesium Oxide 400 MG TABLET PO SCH ×2 (08:06→19:20)
[2017-10-17] MEDS: hydrALAZINE 25 MG TABLET PO SCH ×3 (08:06→19:39)
[2017-10-17] MEDS: Artificial Tears SOLN 15 ML BOTTLE BOTH EYES SCH ×4 (08:06→19:39)
--- NOTE | 2017-10-17 13:06 | Internal Med Progress Note ---
Date of Encounter: 10/17/17 Time of Encounter: 09:30 - Assessment and plan (1) Acute respiratory failure with hypoxia Current Visit: Yes Status: Acute Assessment and plan: Patient is on 4-5 L nasal cannula. Remains stable. Continue treating underlying conditions. (2) Congestive heart failure Current Visit: Yes Status: Acute Assessment and plan: With cardiorenal syndrome. On oral Lasix currently. Renal function remained stable. Respiratory status also remained stable. No pedal edema noted today. Qualifiers: Qualified Code(s): I50.33 - Acute on chronic diastolic (congestive) heart failure (3) Hypertension Current Visit: Yes Status: Chronic Assessment and plan: Blood pressure is well controlled. No changes to medication regimen at this time Qualifiers: Qualified Code(s): I10 - Essential (primary) hypertension (4) Anemia Current Visit: Yes Status: Chronic Assessment and plan: Hemoglobin is 7.8 today. Stool for occult blood positive. However patient condition is not stable enough to undergo upper GI endoscopic Qualifiers: Qualified Code(s): N18.4 - Chronic kidney disease, stage 4 (severe); D63.1 - Anemia in chronic kidney disease (5) Ischemic cardiomyopathy Current Visit: Yes Status: Acute Assessment and plan: On oral Lasix. Continue aspirin, Plavix, atenolol and isosorbide. (6) NSTEMI (non-ST elevated myocardial infarction) Current Visit: Yes Status: Suspected Assessment and plan: Conservative management. Continue aspirin, Plavix . (7) CKD (chronic kidney disease) stage 3, GFR 30-59 ml/min Current Visit: Yes Status: Chronic (8) Speech abnormality Current Visit: Yes Status: Resolved Qualifiers: Qualified Code(s): R47.9 - Unspecified speech disturbances (9) Pneumonia Current Visit: Yes Status: Acute Assessment and plan: Aspiration pneumonia. Completed treatment with Augmentin Qualifiers: Qualified Code(s): J69.0 - Pneumonitis due to inhalation of food and vomit (10) Delirium Current Visit: Yes Status: Acute (11) DVT prophylaxis Current Visit: Yes Status: Acute Assessment and plan: On SQ heparin - Time Spent With Patient Total time spent is greater than 50% in coordination of care (as documented) at patient's floor/unit and/or counseling patient: - Subjective Interval history: Patient is feeling better today. He is sitting up in chair. He maintains on 5 L O2 supplementation. No chest pain or palpitations. No hematemesis or melena. No fever or chills reported overnight. - Constitutional Vitals: Temp Pulse Resp BP Pulse Ox 97.9 F 60 16 122/52 93 10/17/17 11:03 10/17/17 11:03 10/17/17 11:03 10/17/17 11:03 10/17/17 11:03 General appearance: Present: mild distress, A&O X 3, no acute distress, answers questions appropriately - Neck Neck exam general surgery: Present: supple, trachea midline. Absent: lymphadenopathy - Respiratory Respiratory exam: Absent: accessory muscle use, rales, rhonchi, wheezes Additional comments: Bilateral crackles - Cardiovascular Cardiovascular exam: Present: RRR, +S1, +S2. Absent: diastolic murmur, gallop, rubs, systolic murmur - GI/Abdominal GI/Abdominal exam: Present: normal bowel sounds, soft, no peritoneal signs. Absent: distended, tenderness - Extremities Exam Extremities exam: Present: warm, radial pulses palpable and symmetrical. Absent : calf tenderness, cyanotic, pedal edema - Neurological Exam Neurological exam: Present: alert, oriented X3, no focal deficits. Absent: facial droop, speech deficit Internal Medicine: Result - Labs CBC & Chem 7: 10/17/17 06:25 10/17/17 06:25 Labs: Short CBC 10/17/17 Range/Units 06:25 WBC 10.0 (4.3-11.1) K/mcL Hgb 7.8 L (12.9-16.9) g/dL Hct 24.9 L (37.5-50.1) % Plt Count 338 (140-400) K/mcL Neutrophils # 7.6 (1.6-8.9) K/mcL BMP 10/17/17 06:25 Sodium 145 Potassium 4.5 Chloride 104 Carbon Dioxide 36 H BUN 89 H Creatinine 2.72 H Glucose 138 H Calcium 9.4 - ABG Interpretation ABG results: ABG ABG pH 7.38 pH Units (7.32-7.45) 10/07/17 10:36 ABG pCO2 44 mmHg (35-45) 10/07/17 10:36 ABG pO2 64 mmHg (85-104) L 10/07/17 10:36 ABG O2 Saturation 92 % (95-98) L 10/07/17 10:36 PT/INR, D-dimer PT 11.7 Seconds (9.4-12.1) 10/07/17 13:17 - VTE Documentation of Mechanical Device: Intermittent pneumatic compression device Consult Discharge Plan - Plan Referrals: Avel Linares MD [Primary Care Provider] - 10/20/17 2:30 pm ()
--- NOTE | 2017-10-17 13:16 | Nephrology Progress Note ---
Date of Encounter: 10/17/17 Time of Encounter: 12:00 - Assessment and Plan (1) MINOR (acute kidney injury) Current Visit: No Status: Acute SCr stable at 2.72, GFR 22, will monitor. UOP 200cc documented in the past 24hrs on po diuretics, not clear if accurate Continue to avoid nephrotoxins if possible (2) Congestive heart failure Current Visit: Yes Status: Acute Strict I/Os po diuretics Qualifiers: Heart failure type: diastolic Heart failure chronicity: acute on chronic Qualified Code(s): I50.33 - Acute on chronic diastolic (congestive) heart failure (3) Anemia Current Visit: Yes Status: Chronic Hgb dropped at 7.8, will continue and continue aranesp May need another iv iron infusion tomorrow as first infusion was not fully given due to infiltration Qualifiers: Anemia type: due to chronic kidney disease Chronic kidney disease stage: stage 4 (severe) Qualified Code(s): N18.4 - Chronic kidney disease, stage 4 ( severe); D63.1 - Anemia in chronic kidney disease (4) CKD (chronic kidney disease) stage 3, GFR 30-59 ml/min Current Visit: Yes Status: Chronic Baseline GFR typically 20-30s Subjective Principal diagnosis: low hgb, nausea Interval history: Pt seen and examined while resting comfortably with at bedside Objective - Vital Signs Vital signs: Vital Signs Temp Pulse Resp BP Pulse Ox 10/17/17 11:03 97.9 F 60 16 122/52 93 10/17/17 10:13 143/53 10/17/17 07:04 98.3 F 60 16 146/53 95 10/17/17 02:44 98.1 F 60 18 126/47 93 10/17/17 00:16 98.0 F 60 16 127/47 10/16/17 19:35 98.1 F 62 18 132/48 90 10/16/17 17:33 60 10/16/17 16:22 98.0 F 60 18 122/49 90 Intake and Output 10/16/17 10/17/17 10/17/17 23:59 07:59 15:59 Intake Total 120 / 120 120 / 120 Balance 120 / 120 120 / 120 Intake: Oral 120 / 120 120 / 120 Other: Meal Dinner Breakfast Percent of Meal Consumed 75% 10% Weight 65 kg Patient Weight 10/17/17 23:59 Weight 65 kg - General Appearance General appearance: Present: chronically ill, fatigue, frail EENT: Present: ATNC, mucous membranes moist Neck: Present: no JVD, supple Additional Comments: good areation ant bilat Cardiology: Present: no edema, normal S1, normal S2 Gastrointestinal: Present: no tenderness, no guarding Integumentary: Present: warm and dry Neurologic: Present: no focal deficit Musculoskeletal: Present: no deformities Psychiatric: Present: mood/affect appropriate, cooperative - Lab 10/17/17 06:25 10/17/17 06:25 Most recent lab results ABG pH 7.38 pH Units (7.32-7.45) 10/07/17 10:36 ABG pCO2 44 mmHg (35-45) 10/07/17 10:36 ABG pO2 64 mmHg (85-104) L 10/07/17 10:36 ABG HCO3 26 mEq/L (21-27) 10/07/17 10:36 ABG O2 Saturation 92 % (95-98) L 10/07/17 10:36 Calcium 9.4 mg/dL (8.6-10.3) 10/17/17 06:25 Magnesium 2.1 mg/dL (1.6-2.6) 10/14/17 04:10 - VTE Documentation of Mechanical Device: Intermittent pneumatic compression device Consult Discharge Plan - Plan Referrals: Avel Linares MD [Primary Care Provider] - 10/20/17 2:30 pm ()
[2017-10-17] MEDS: risperiDONE 0.25 MG TABLET PO SCH (19:20)
[2017-10-17] MEDS: Gabapentin 300 MG CAPSULE PO SCH (19:39)
[2017-10-18] MEDS: *HR* Heparin 5,000 UNIT/ML VIAL SQ SCH ×2 (04:33→17:10)
[2017-10-18 06:22] LABS: Basophils % 0.3 %; Eosinophils # 0.2 K/mcL (0.0-0.6); Eosinophils % 1.8 %; Hemoglobin 7.8 g/dL (12.9-16.9); Lymphocytes # 1.2 K/mcL (0.6-4.6); Lymphocytes % 11.3 %; Mean Corpuscular HGB Conc 31.2 g/dL (31.6-35.5); Mean Corpuscular Hemoglobin 31.3 pg (28.0-33.3); Mean Corpuscular Volume 100.4 fL (83.0-100.0); Mean Platelet Volume 10.7 fL (9.4-12.4); Monocytes # 0.6 K/mcL (0.0-1.3); Monocytes % 5.9 %; Neutrophils # 8.3 K/mcL (1.6-8.9); Nucleated Red Blood Cells 0.3 /100 WBC (0); Platelet Count 323 K/mcL (140-400); Red Blood Count 2.49 M/mcL (4.19-5.50); Red Cell Distribution Width 13.2 % (11.5-14.5); Segmented Neutrophils % 79.7 %
[2017-10-18 06:44] LABS: Calcium 9.7 mg/dL (8.6-10.3); Potassium 4.9 mEq/L (3.5-5.1)
--- NOTE | 2017-10-18 08:59 | Palliative Progress Note ---
Date of Encounter: 10/18/17 Time of Encounter: 08:30 - Assessment and plan (1) Nausea & vomiting Current Visit: Yes Status: Acute Assessment and plan: Denies nausea and vomiting during assessment. No Phenergan in last 72 hours. Qualifiers: Vomiting type: unspecified Vomiting Intractability: unspecified Qualified Code(s): R11.2 - Nausea with vomiting, unspecified (2) CAD (coronary artery disease) Current Visit: Yes Status: Acute Qualifiers: Coronary Disease-Associated Artery/Lesion type: bypass graft [place] vs. 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 Follow recommendations and continue to avoid nephrotoxins. (4) Dyspnea Current Visit: Yes Status: Acute Assessment and plan: Patient denies shortness of breath. Patient oxygen saturation 93% on 5L, continue oxygen therapy. Qualifiers: Dyspnea type: acute respiratory distress Qualified Code(s): R06.03 - Acute respiratory distress (5) Congestive heart failure Current Visit: Yes Status: Acute Qualifiers: Heart failure type: diastolic Heart failure chronicity: acute on chronic Qualified Code(s): I50.33 - Acute on chronic diastolic (congestive) heart failure (6) Goals of care, counseling/discussion Current Visit: Yes Status: Acute Assessment and plan: Conducted family meeting with patient's and daughter, Krystin. Family reports they are ready to bring him home; however, they were still in indecision regarding hospice versus home health. Patient was previously an [facility] patient. After evaluating differences between home health and hospice, family has decided that they are going to bring patient home with home health and family care; refusing hospice at this time. Open to transitioning from home health to hospice at a later time, once patient's and patient are in agreement. Notified Dr. Ferrer of plan of care. Palliative care will sign off. (7) Weakness Current Visit: Yes Status: Acute Assessment and plan: PT/OT working with patient, when he is agreeable. Family reports he would be going home with home health and PT from home health; refuses idea of ECF for skilled rehab. - Time Spent With Patient Total time spent is greater than 50% in coordination of care (as documented) at patient's floor/unit and/or counseling patient: - Subjective Interval history: Patient alert and oriented to place and name during assessment; slightly disoriented to time. No complaints of pain, nausea, anxiety, vomiting, or nausea during assessment. Patient's daughter Krystin and patient's present during assessment. Patient was sitting up in bed eating breakfast without difficulty. Reports he is ready to go home. Discussed goals of care with family. - Constitutional Vitals: Abnormal lab results RBC 2.49 M/mcL (4.19-5.50) L 10/18/17 05:40 Hgb 7.8 g/dL (12.9-16.9) L 10/18/17 05:40 Hct 25.0 % (37.5-50.1) L 10/18/17 05:40 MCV 100.4 fL (83.0-100.0) H 10/18/17 05:40 MCHC 31.2 g/dL (31.6-35.5) L 10/18/17 05:40 Nucleated RBCs/100 WBC 0.3 /100 WBC (0) H 10/18/17 05:40 APTT 69.6 Seconds (26.0-36.0) H D 10/10/17 08:00 ABG pO2 64 mmHg (85-104) L 10/07/17 10:36 ABG Total CO2 27 mEq/L (20-26) H 10/07/17 10:36 ABG O2 Saturation 92 % (95-98) L 10/07/17 10:36 Sodium 146 mEq/L (136-145) H 10/18/17 05:40 Carbon Dioxide 34 mEq/L (23-29) H 10/18/17 05:40 BUN 92 mg/dL (8-23) H 10/18/17 05:40 Creatinine 2.61 mg/dL (0.70-1.30) H 10/18/17 05:40 Est GFR ( Amer) 28 (> 60) L 10/18/17 05:40 Est GFR (Non-Af Amer) 23 (> 60) L 10/18/17 05:40 BUN/Creatinine Ratio 35 (6-26) H 10/18/17 05:40 Glucose 128 mg/dL (70-105) H 10/18/17 05:40 POC Glucose 126 mg/dL (70-99) H 10/14/17 12:31 Calculated Osmolality 332 (280-300) H 10/18/17 05:40 Troponin I 1.56 ng/mL (< 0.04) H* 10/08/17 02:30 B-Natriuretic Peptide 1750 pg/mL (Less than 100) H 10/15/17 03:25 Serum Total Protein 5.6 g/dL (6.4-8.9) L 10/06/17 00:58 Albumin 2.8 g/dL (3.5-5.7) L 10/14/17 04:10 Urine Protein 30 mg/dL (Neg-Trace) H 10/12/17 21:47 Urine Blood Trace (Negative) H 10/12/17 21:47 Urine Microscopic RBC 5-15 per hpf (0-3) H 10/12/17 21:47 Ur Squamous Epith Cells Moderate per lpf (None-Few) H 10/12/17 21:47 Stool Occult Blood Positive (Negative) A 10/13/17 10:15 General appearance: Present: cooperative, no acute distress - Head Head exam: Present: atraumatic, normal inspection - Eye Eye exam: Present: normal appearance Pupils: Present: normal accommodation - ENT ENT exam: Present: mucous membranes moist, normal external ear exam - Neck Neck exam: Present: full ROM, normal inspection - Respiratory Respiratory exam: Present: CTAB. Absent: accessory muscle use, respiratory distress - Cardiovascular Cardiovascular exam: Present: +S1, +S2 - GI/Abdominal GI/Abdominal exam: Present: normal bowel sounds - Rectal Rectal exam: Present: deferred - Extremities Exam Extremities exam: Present: full ROM, normal inspection. Absent: pedal edema - Neurological Exam Neurological exam: Present: alert, altered, strengths equal and symetr throughout. Absent: oriented X3 - Psychiatric Psychiatric exam: Present: normal affect, normal mood. Absent: anxious Palliative Quality Palliative Quality: Screen for Code Status: Yes, Screen for Goals of Care: Yes, Screen for Pain: Yes, If Pain Regimen Started, Initiate Bowel Regimen: NA, Screen for Nausea/Vomitting: Yes - Labs CBC & Chem 7: 10/18/17 05:40 10/18/17 05:40 Labs: Laboratory Results - last 24 hr 10/18/17 10/18/17 05:40 05:40 WBC 10.4 RBC 2.49 L Hgb 7.8 L Hct 25.0 L MCV 100.4 H MCH 31.3 MCHC 31.2 L RDW 13.2 Plt Count 323 MPV 10.7 Immature Gran % 1.0 Seg Neutrophils % 79.7 Lymphocytes % 11.3 Monocytes % 5.9 Eosinophils % 1.8 Basophils % 0.3 Neutrophils # 8.3 Lymphocytes # 1.2 Monocytes # 0.6 Eosinophils # 0.2 Basophils # 0.0 Nucleated RBCs/100 WBC 0.3 H Sodium 146 H Potassium 4.9 Chloride 106 Carbon Dioxide 34 H BUN 92 H Creatinine 2.61 H Est GFR ( Amer) 28 L Est GFR (Non-Af Amer) 23 L BUN/Creatinine Ratio 35 H Glucose 128 H Calculated Osmolality 332 H Calcium 9.7 - ABG Interpretation ABG results: ABG ABG pH 7.38 pH Units (7.32-7.45) 10/07/17 10:36 ABG pCO2 44 mmHg (35-45) 10/07/17 10:36 ABG pO2 64 mmHg (85-104) L 10/07/17 10:36 ABG O2 Saturation 92 % (95-98) L 10/07/17 10:36 PT/INR, D-dimer PT 11.7 Seconds (9.4-12.1) 10/07/17 13:17 Consult Discharge Plan - Plan Referrals: Avel Linares MD [Primary Care Provider] - (DR. LINARES IS ON VACATION UNTIL October.)
[2017-10-18] MEDS: Artificial Tears SOLN 15 ML BOTTLE BOTH EYES SCH ×4 (09:27→21:05)
[2017-10-18] MEDS: Magnesium Oxide 400 MG TABLET PO SCH ×2 (09:27→21:04)
[2017-10-18] MEDS: Sennosides 8.6 MG TABLET PO SCH ×2 (09:28→21:04)
[2017-10-18] MEDS: Isosorbide MONOnitrate (24 HR) 30 MG TAB.ER.24H PO SCH (09:28)
[2017-10-18] MEDS: Aspirin Enteric Coated 81 MG Tablet PO SCH (09:28)
[2017-10-18] MEDS: Furosemide 40 MG TABLET PO SCH (09:28)
[2017-10-18] MEDS: Multivit/Ca/Min/Fe/FA 1 TAB TABLET PO SCH (09:28)
[2017-10-18] MEDS: Loratadine 10 MG TABLET PO SCH (09:28)
[2017-10-18] MEDS: amLODIPine 5 MG TABLET PO SCH (09:28)
[2017-10-18] MEDS: hydrALAZINE 25 MG TABLET PO SCH ×3 (09:28→21:05)
--- NOTE | 2017-10-18 15:19 | Internal Med Progress Note ---
Date of Encounter: 10/18/17 Time of Encounter: 09:20 - Assessment and plan (1) Acute respiratory failure with hypoxia Current Visit: Yes Status: Acute Assessment and plan: Remains stable. Patient is on 4 L nasal cannula. At at this time, family not considering hospice. They wish to take home with home health for occult positions with palliative care. Patient has been appropriately diuresed. He remains at high risk for complications. Will continue to wean FiO2 as tolerated. (2) Congestive heart failure Current Visit: Yes Status: Acute Assessment and plan: Continue Lasix orally. Clinically, patient has significantly improved since presentation. Renal function remained stable. We will continue Lasix at current dose. Qualifiers: Heart failure type: diastolic Heart failure chronicity: acute on chronic Qualified Code(s): I50.33 - Acute on chronic diastolic (congestive) heart failure (3) Hypertension Current Visit: Yes Status: Chronic Assessment and plan: Well controlled. No changes to current treatment regimen Qualifiers: Hypertension type: essential hypertension Qualified Code(s): I10 - Essential (primary) hypertension (4) Anemia Current Visit: Yes Status: Chronic Assessment and plan: Stable. Patient remains a poor candidate for endoscopic evaluation for possible bleeding. As blood counts have remained stable, no further workup planned. We will give another dose of Feraheme today. Qualifiers: Anemia type: due to chronic kidney disease Chronic kidney disease stage: stage 4 (severe) Qualified Code(s): N18.4 - Chronic kidney disease, stage 4 ( severe); D63.1 - Anemia in chronic kidney disease (5) Ischemic cardiomyopathy Current Visit: Yes Status: Chronic Assessment and plan: Continue home medications. Continue Lasix. Fluid restriction. (6) NSTEMI (non-ST elevated myocardial infarction) Current Visit: Yes Status: Acute Assessment and plan: Conservative management. Patient is on aspirin and Plavix. (7) CKD (chronic kidney disease) stage 3, GFR 30-59 ml/min Current Visit: Yes Status: Chronic Assessment and plan: With acute worsening of renal function. Improved. Creatinine remains stable. (8) Speech abnormality Current Visit: Yes Status: Resolved Qualifiers: Speech disturbance type: unspecified speech disturbance Qualified Code(s): R47.9 - Unspecified speech disturbances (9) Pneumonia Current Visit: Yes Status: Acute Assessment and plan: Patient has completed treatment for aspiration pneumonia. He does remain at risk for aspiration. Qualifiers: Pneumonia type: aspiration pneumonia Aspiration pneumonia type: due to gastric secretions Laterality: unspecified laterality Qualified Code(s): J69.0 - Pneumonitis due to inhalation of food and vomit (10) Delirium Current Visit: Yes Status: Acute Assessment and plan: Responded well to risperidone. We will continue (11) Goals of care, counseling/discussion Current Visit: Yes Status: Acute Assessment and plan: Discussed plan of care with palliative care and family. At this time will plan on discharging patient to home health and appropriate. Further treatment according to how he does at home. Patient will be transitioned to hospice if patient does not want to be treated further or return to the ER in case of decline in patient's respiratory status. Patient has become very weak and is mostly bedbound at this time. He is also at high risk for aspiration. He has had significantly decreased mobility. He also has stage I decubitus ulcer. As such I think he would benefit from hospital bed at home. (12) DVT prophylaxis Current Visit: Yes Status: Acute Assessment and plan: On subcutaneous heparin. Hemoglobin levels have remained stable. Patient remains on subcutaneous heparin due to high risk for VTE despite having stool positive for occult blood. - Time Spent With Patient Total time spent is greater than 50% in coordination of care (as documented) at patient's floor/unit and/or counseling patient: - Subjective Interval history: Patient lying down in bed. No new complaints at this time. Remains on 4-5 L nasal cannula. No chest pain or palpitations. Having good urine output. - Constitutional Vitals: Temp Pulse Resp BP Pulse Ox 98.0 F 60 20 130/55 93 10/18/17 10:56 10/18/17 13:58 10/18/17 13:58 10/18/17 10:56 10/18/17 13:58 General appearance: Present: mild distress, A&O X 3, no acute distress, answers questions appropriately - Neck Neck exam general surgery: Present: supple, trachea midline. Absent: lymphadenopathy - Respiratory Respiratory exam: Absent: accessory muscle use, rales, rhonchi, wheezes Additional comments: Bilateral crackles present - Cardiovascular Cardiovascular exam: Present: RRR, +S1, +S2. Absent: diastolic murmur, gallop, rubs, systolic murmur - GI/Abdominal GI/Abdominal exam: Present: normal bowel sounds, soft, no peritoneal signs. Absent: distended, tenderness - Extremities Exam Extremities exam: Present: warm, radial pulses palpable and symmetrical. Absent : calf tenderness, cyanotic, pedal edema - Neurological Exam Neurological exam: Present: alert, oriented X3, no focal deficits. Absent: facial droop, speech deficit - Skin Skin exam: Present: dry, intact Additional comments: Patient has stage I decubitus ulcer in the coccygeal region Internal Medicine: Result - Labs CBC & Chem 7: 10/18/17 05:40 10/18/17 05:40 Labs: Short CBC 10/18/17 Range/Units 05:40 WBC 10.4 (4.3-11.1) K/mcL Hgb 7.8 L (12.9-16.9) g/dL Hct 25.0 L (37.5-50.1) % Plt Count 323 (140-400) K/mcL Neutrophils # 8.3 (1.6-8.9) K/mcL BMP 10/18/17 05:40 Sodium 146 H Potassium 4.9 Chloride 106 Carbon Dioxide 34 H BUN 92 H Creatinine 2.61 H Glucose 128 H Calcium 9.7 - ABG Interpretation ABG results: ABG ABG pH 7.38 pH Units (7.32-7.45) 10/07/17 10:36 ABG pCO2 44 mmHg (35-45) 10/07/17 10:36 ABG pO2 64 mmHg (85-104) L 10/07/17 10:36 ABG O2 Saturation 92 % (95-98) L 10/07/17 10:36 PT/INR, D-dimer PT 11.7 Seconds (9.4-12.1) 10/07/17 13:17 - VTE Documentation of Mechanical Device: Intermittent pneumatic compression device Consult Discharge Plan - Plan Referrals: Anderson Porras MD [Partnered Physician] - 10/26/17 2:00 pm Colt Boykin MD [Partnered Physician] - 11/09/17 2:20 pm Jamar Moya DO [Partnered Physician] - 11/02/17 9:30 am Avel Linares MD [Primary Care Provider] - (DR. LINARES IS ON VACATION UNTIL October.)
--- NOTE | 2017-10-18 17:56 | Nephrology Progress Note ---
Date of Encounter: 10/18/17 - Assessment and Plan (1) MINOR (acute kidney injury) Current Visit: No Status: Acute SCr stable at 2.72, GFR 22, will monitor. UOP 200cc documented in the past 24hrs on po diuretics, not clear if accurate Continue to avoid nephrotoxins if possible (2) Congestive heart failure Current Visit: Yes Status: Acute Strict I/Os po diuretics Qualifiers: Heart failure type: diastolic Heart failure chronicity: acute on chronic Qualified Code(s): I50.33 - Acute on chronic diastolic (congestive) heart failure (3) Anemia Current Visit: Yes Status: Chronic Hgb dropped at 7.8, will continue and continue aranesp May need another iv iron infusion tomorrow as first infusion was not fully given due to infiltration Qualifiers: Anemia type: due to chronic kidney disease Chronic kidney disease stage: stage 4 (severe) Qualified Code(s): N18.4 - Chronic kidney disease, stage 4 ( severe); D63.1 - Anemia in chronic kidney disease (4) CKD (chronic kidney disease) stage 3, GFR 30-59 ml/min Current Visit: Yes Status: Chronic Baseline GFR typically 20-30s Subjective Principal diagnosis: low hgb, nausea Interval history: Pt seen and examined while resting comfortably with at bedside Objective - Vital Signs Vital signs: Vital Signs Temp Pulse Resp BP Pulse Ox 10/18/17 17:06 60 10/18/17 17:03 60 20 94 10/18/17 16:07 98.2 F 59 19 126/54 91 10/18/17 13:58 60 20 93 10/18/17 12:57 3 10/18/17 12:50 68 10/18/17 12:42 60 20 94 10/18/17 11:49 60 20 92 10/18/17 10:56 98.0 F 61 20 130/55 92 10/18/17 09:41 60 10/18/17 09:38 60 18 98 10/18/17 08:43 60 20 96 10/18/17 07:22 98.0 F 60 20 122/75 93 10/17/17 23:17 98.2 F 60 28 133/47 91 10/17/17 19:40 98.4 F 60 26 133/67 91 Intake and Output 10/18/17 10/18/17 10/18/17 07:59 15:59 23:59 Intake Total 440 / 440 Balance 440 / 440 Intake: Oral 440 / 440 Other: Meal Lunch Percent of Meal Consumed 10% # Bowel Movement Diapers 1 - Lab 10/18/17 05:40 10/18/17 05:40 Most recent lab results ABG pH 7.38 pH Units (7.32-7.45) 10/07/17 10:36 ABG pCO2 44 mmHg (35-45) 10/07/17 10:36 ABG pO2 64 mmHg (85-104) L 10/07/17 10:36 ABG HCO3 26 mEq/L (21-27) 10/07/17 10:36 ABG O2 Saturation 92 % (95-98) L 10/07/17 10:36 Calcium 9.7 mg/dL (8.6-10.3) 10/18/17 05:40 Magnesium 2.1 mg/dL (1.6-2.6) 10/14/17 04:10 - VTE Documentation of Mechanical Device: Intermittent pneumatic compression device Consult Discharge Plan - Plan Referrals: Anderson Porras MD [Partnered Physician] - 10/26/17 2:00 pm Colt Boykin MD [Partnered Physician] - 11/09/17 2:20 pm Jamar Moya DO [Partnered Physician] - 11/02/17 9:30 am Avel Linares MD [Primary Care Provider] - (DR. LINARES IS ON VACATION UNTIL October.)
[2017-10-18] MEDS: risperiDONE 0.25 MG TABLET PO SCH (21:04)
[2017-10-18] MEDS: Gabapentin 300 MG CAPSULE PO SCH (21:04)
[2017-10-18] MEDS: hydrOXYzine pamoate 25 MG CAPSULE PO PRN (21:10)
[2017-10-19] MEDS: hydrOXYzine pamoate 25 MG CAPSULE PO PRN (03:47)
[2017-10-19 03:55] LABS: Basophils % 0.3 %; Eosinophils # 0.3 K/mcL (0.0-0.6); Eosinophils % 2.5 %; Hematocrit 24.4 % (37.5-50.1); Hemoglobin 7.8 g/dL (12.9-16.9); Lymphocytes # 1.5 K/mcL (0.6-4.6); Lymphocytes % 13.2 %; Mean Corpuscular Hemoglobin 32.1 pg (28.0-33.3); Mean Corpuscular Volume 100.4 fL (83.0-100.0); Mean Platelet Volume 10.5 fL (9.4-12.4); Monocytes # 0.6 K/mcL (0.0-1.3); Monocytes % 5.7 %; Neutrophils # 8.5 K/mcL (1.6-8.9); Nucleated Red Blood Cells 0.2 /100 WBC (0); Platelet Count 328 K/mcL (140-400); Red Blood Count 2.43 M/mcL (4.19-5.50); Red Cell Distribution Width 13.2 % (11.5-14.5); Segmented Neutrophils % 77.3 %
[2017-10-19 04:14] LABS: Calcium 10.1 mg/dL (8.6-10.3)
[2017-10-19] MEDS: Ipratropium/Albuterol Neb 3 ML IH PRN (05:54)
[2017-10-19] MEDS: *HR* Heparin 5,000 UNIT/ML VIAL SQ SCH (06:15)
[2017-10-19] MEDS ORDERED: Ferumoxytol 510 MG in 0.9 % Sodium Chloride 100 ML IVPB ONE (07:00)
[2017-10-19] MEDS: Multivit/Ca/Min/Fe/FA 1 TAB TABLET PO SCH (08:20)
[2017-10-19] MEDS: hydrALAZINE 25 MG TABLET PO SCH (08:20)
[2017-10-19] MEDS: Loratadine 10 MG TABLET PO SCH (08:20)
[2017-10-19] MEDS: Isosorbide MONOnitrate (24 HR) 30 MG TAB.ER.24H PO SCH (08:20)
[2017-10-19] MEDS: amLODIPine 5 MG TABLET PO SCH (08:20)
[2017-10-19] MEDS: Furosemide 40 MG TABLET PO SCH (08:21)
[2017-10-19] MEDS: Sennosides 8.6 MG TABLET PO SCH (08:21)
[2017-10-19] MEDS: Aspirin Enteric Coated 81 MG Tablet PO SCH (08:21)
[2017-10-19] MEDS: Magnesium Oxide 400 MG TABLET PO SCH (08:21)
[2017-10-19] MEDS: Artificial Tears SOLN 15 ML BOTTLE BOTH EYES SCH (08:21)
--- NOTE | 2017-10-19 12:47 | Nephrology Progress Note ---
Date of Encounter: 10/19/17 Time of Encounter: 11:00 - Assessment and Plan (1) MINOR (acute kidney injury) Current Visit: No Status: Acute SCr stable at 2.5, GFR 25, will monitor. UOP 0cc documented in the past 24hrs on po diuretics, likely not accurate Continue to avoid nephrotoxins if possible (2) Congestive heart failure Current Visit: Yes Status: Acute Strict I/Os po diuretics Qualifiers: Heart failure type: diastolic Heart failure chronicity: acute on chronic Qualified Code(s): I50.33 - Acute on chronic diastolic (congestive) heart failure (3) Anemia Current Visit: Yes Status: Chronic Hgb stable at 7.8, will continue and continue aranesp s/p iv iron Qualifiers: Anemia type: due to chronic kidney disease Chronic kidney disease stage: stage 4 (severe) Qualified Code(s): N18.4 - Chronic kidney disease, stage 4 ( severe); D63.1 - Anemia in chronic kidney disease (4) CKD (chronic kidney disease) stage 3, GFR 30-59 ml/min Current Visit: Yes Status: Chronic Baseline GFR typically 20-30s Subjective Principal diagnosis: low hgb, nausea Interval history: Pt seen and examined while resting comfortably with and daughter at bedside Objective - Vital Signs Vital signs: Vital Signs Temp Pulse Resp BP Pulse Ox 10/19/17 11:25 98.4 F 60 19 130/54 89 10/19/17 07:41 98.0 F 60 17 141/52 92 10/19/17 05:57 20 91 10/19/17 03:30 60 10/19/17 03:14 97.6 F 60 18 134/54 10/18/17 23:54 60 10/18/17 23:08 98.0 F 60 16 135/52 10/18/17 20:45 60 10/18/17 19:05 98.8 F 59 18 125/41 10/18/17 17:57 61 20 10/18/17 17:06 60 10/18/17 17:03 60 20 94 10/18/17 16:07 98.2 F 59 19 126/54 91 10/18/17 13:58 60 20 93 10/18/17 12:57 3 10/18/17 12:50 68 Intake and Output 10/18/17 10/19/17 10/19/17 23:59 07:59 15:59 Intake Total 240 / 240 Balance 240 / 240 Intake: Oral 240 / 240 Other: Meal Breakfast Percent of Meal Consumed 100% # Urine Diapers 1 1 Weight 67.9 kg Patient Weight 10/19/17 23:59 Weight 67.9 kg - General Appearance General appearance: Present: chronically ill, fatigue EENT: Present: ATNC, mucous membranes dry Neck: Present: no JVD, supple Respiratory: Present: clear (ant bilat) Cardiology: Present: no edema, normal S1, normal S2 Gastrointestinal: Present: no tenderness, no guarding Integumentary: Present: warm and dry Neurologic: Present: no focal deficit Musculoskeletal: Present: no deformities Psychiatric: Present: mood/affect appropriate, cooperative - Lab 10/19/17 03:45 10/19/17 03:45 Most recent lab results ABG pH 7.38 pH Units (7.32-7.45) 10/07/17 10:36 ABG pCO2 44 mmHg (35-45) 10/07/17 10:36 ABG pO2 64 mmHg (85-104) L 10/07/17 10:36 ABG HCO3 26 mEq/L (21-27) 10/07/17 10:36 ABG O2 Saturation 92 % (95-98) L 10/07/17 10:36 Calcium 10.1 mg/dL (8.6-10.3) 10/19/17 03:45 Magnesium 2.1 mg/dL (1.6-2.6) 10/14/17 04:10 - VTE Documentation of Mechanical Device: Intermittent pneumatic compression device Consult Discharge Plan - Plan Referrals: Anderson Porras MD [Partnered Physician] - 10/26/17 2:00 pm Colt Boykin MD [Partnered Physician] - 11/09/17 2:20 pm Jamar Moya DO [Partnered Physician] - 11/02/17 9:30 am Avel Linares MD [Primary Care Provider] - (DR. LINARES IS ON VACATION UNTIL October.)
--- NOTE | 2017-10-19 15:11 | Discharge Summary ---
- NOTES TO OUTPATIENT PROVIDER Notes to Outpatient Provider: Follow with PCP within 2-3 days-discuss about further CODE STATUS and palliative care. Keep appointment with his other regular physicians as scheduled. Follow with pbx teacher within 1 week Date of Encounter: 10/24/17 Time of Encounter: 15:09 - Discharge Diagnosis (1) Acute respiratory failure with hypoxia Priority: Primary Status: Acute Assessment and Plan: Stable on 4 L oxygen nasal cannula. Patient was not on home oxygen before this admission. Will discharge patient on home oxygen and follow-up with primary care physician. (2) NSTEMI (non-ST elevated myocardial infarction) Priority: Primary Status: Acute Assessment and Plan: Consulted health unit supervisor but advised for Conservative management after discussing risk and benefits with family. Continue aspirin and Plavix. (3) Pneumonia Priority: Primary Status: Acute Assessment and Plan: Patient has completed treatment for aspiration pneumonia. He does remain at risk for aspiration. Qualifiers: Pneumonia type: aspiration pneumonia Aspiration pneumonia type: due to gastric secretions Laterality: unspecified laterality (4) Hypertension Priority: Secondary Status: Chronic Qualifiers: Hypertension type: essential hypertension Qualified Code(s): I10 - Essential (primary) hypertension (5) Anemia Priority: Secondary Status: Chronic Assessment and Plan: Stable hemoglobin with no active bleed. Patient remains a poor candidate for endoscopic evaluation for possible bleeding and hemoglobin have been a stable therefore no further workup planned. Discussed with family and they agreed Qualifiers: Anemia type: due to chronic kidney disease Chronic kidney disease stage: stage 4 (severe) Qualified Code(s): N18.4 - Chronic kidney disease, stage 4 ( severe); D63.1 - Anemia in chronic kidney disease (6) Congestive heart failure Priority: Secondary Status: Acute Assessment and Plan: Will discharge patient on oral Lasix. Does not appear in volume overloaded at this time Qualifiers: Heart failure type: diastolic Heart failure chronicity: acute on chronic Qualified Code(s): I50.33 - Acute on chronic diastolic (congestive) heart failure (7) Goals of care, counseling/discussion Priority: Secondary Status: Acute Assessment and Plan: Extensively Discussed plan of care with palliative care and family. At this time will plan on discharging patient to home health, PT, home oxygen and discuss with primary care physician. Further decision will be based according to how he does at home. At present full code status. Patient will be transitioned to hospice if patient does not want to be treated further or return to the ER in case of decline in patient's respiratory status. Patient has become very weak and is mostly bedbound at this time and has stage I decubitus ulcer and he will get benefited in management of ulcer therefore hospital bed arranged.. He is also at high risk for aspiration therefore follow the instructions from speech therapist (8) CKD (chronic kidney disease) stage 3, GFR 30-59 ml/min Priority: Secondary Status: Chronic Assessment and Plan: Stable. Follow with pbx teacher on OPD basis Hospital course: Mr. Avendaño is a 87 year old male patient with history of CAD got admitted initially with a possible GI bleed but developed acute respiratory failure or and hypotension thereforescope was performed. His acute respiratory failure or was related to pulmonary edema and congestive heart failure therefore transferred to ICU bed. Patient also do low acute on chronic kidney disease therefore pbx teacher was consulted who has been managing his Lasix and patient is started to respond. Patient has history of underlying asbestosis but never got evaluated for oxygen requirement. During his stay patient was dependent on 4-5 L oxygen by nasal cannula therefore home oxygen evaluation was done and he qualified to continue home oxygen. Abnormal troponin level with NST HI therefore health unit supervisor was consulted and recommended medical management as he is suboptimal candidate for heart catheter. Patient was very debilitated and bed bound due to generalized weakness therefore physiotherapist was consulted. Overall has poor prognosis. Palliative care was consulted regarding goals of care and he recommended hospice but patient and family noted that point he had an want to go home with home health to discuss in the future whether change in decision. At present patient is full code but family may consider hospice if patient does not do well at home. domestic laundry worker was consulted and arranged for home health care and oxygen in hospital bed as patient has decubitus ulcer grade 1 during his stay patient also developed pneumonia and completed the course of antibiotic. Patient is high risk for aspiration. Discharge plan was discussed extensively with family and they are willing to take patient home with home health care understanding his debilitated condition and risk. At the time of discharge patient is clinically stable. Discharge discussed with: patient, family, nurse - Time Spent with Patient Total time spent providing and/or coordinating discharge services: Greater than 30 minutes - Discharge Medications Prescriptions: Darbepoetin [Aranesp] 40 mcg SQ QWEEK #4 syringe Home Medications: Amlodipine Besylate 10 mg PO DAILY 08/20/17 [History] Aspirin [Lo-Dose Aspirin EC] 81 mg PO DAILY 08/20/17 [History] Atenolol [Tenormin] 50 mg PO DAILY 08/20/17 [History] Atorvastatin Calcium [Lipitor] 80 mg PO HS 08/20/17 [History] Calcitriol [Rocaltrol] 0.25 mcg PO DAILY 08/20/17 [History] Cetirizine HCl [All Day Allergy] 10 mg PO DAILY 08/20/17 [History] Clopidogrel [Plavix] 75 mg PO DAILY 08/20/17 [History] Febuxostat [Uloric] 40 mg PO DAILY 08/20/17 [History] Gabapentin [Neurontin] 300 mg PO QAM 08/20/17 [History] Gabapentin [Neurontin] 600 mg PO HS 08/20/17 [History] Ipratropium [place] 1 spr NS BID 08/20/17 [History] Levothyroxine [Synthroid] 50 mcg PO 0630 08/20/17 [History] Mirabegron [Myrbetriq] 50 mg PO DAILY 08/20/17 [History] [place]-3/Dha/Epa/Fish Oil [Fish Oil 500 mg Softgel] 1 cap PO DAILY 08/20/17 [ History] Isosorbide MONOnitrate (24 HR) [Imdur] 30 mg PO DAILY #30 tab.er.24h 08/22/17 [ Rx] Nitroglycerin [Nitrostat] 0.4 mg SL Q5MIN PRN #30 tab.subl 08/22/17 [Rx] Pantoprazole Sodium 40 mg PO DAILY #30 tablet.dr 08/22/17 [Rx] Ondansetron ODT [Zofran ODT] 4 mg SL Q4HR PRN #14 tab.rapdis 09/25/17 [Rx] Acetaminophen [Tylenol] 650 mg PO Q6HR PRN tablet 09/30/17 [Rx] Docusate [Colace] 100 mg PO DAILY PRN capsule 09/30/17 [Rx] Multivit/Ca/Min/Fe/FA [Thera M Plus] 1 tab PO DAILY tablet 09/30/17 [Rx] hydrALAZINE [HydrALAZINE] 25 mg PO Q8HR 30 Days #90 tablet 09/30/17 [Rx] hydroCHLOROthiazide [Hydrochlorothiazide] 25 mg PO DAILY 10/05/17 [History] Darbepoetin [Aranesp] 40 mcg SQ QWEEK #4 syringe 10/19/17 [Rx] Furosemide [Lasix] 40 mg PO DAILY tablet 10/19/17 [Rx] Ipratropium/Albuterol Neb [Duoneb] 3 ml IH [id number] PRN inhsol 10/19/17 [Rx] Allergies/Adverse Reactions: 3 Allergy/AdvReac Type Severity Reaction Status Date / Time tape AdvReac skin Uncoded 10/05/17 09:11 breakdown Date of admission: 10/10/17 18:05 Primary care physician: Avel Linares MD Consults: 10/12/17 14:06 Consult to Occupational Therapy [CONS] Routine Comment: Evaluate, develop and implement POC Reason for Consult: discharge planning Does patient have active BEDREST order?: No Is patient medically & hemodynamically stable?: Yes Consult to Physical Therapy [CONS] Routine Comment: Evaluate, develop and implement POC Reason for Consult: discharge planinng Does patient have active BEDREST order?: No Is patient medically & hemodynamically stable?: Yes 10/14/17 14:08 Consult to Palliative Care [CONS] Routine Comment: Consulting Provider: Palliative Care Martha Reason for Consult: Goals of care: Possible hospice Time Notified: 14:08 Call Completed: Yes - Constitutional Vitals: Temp Pulse Resp BP Pulse Ox 98.4 F 60 19 130/54 89 10/19/17 11:25 10/19/17 11:25 10/19/17 11:25 10/19/17 11:25 10/19/17 11:25 General appearance: Present: mild distress, A&O X 3, no acute distress, answers questions appropriately Exam: General appearance: No acute distress, alert awake. Impaired hearing Head exam: Atraumatic Eye exam: EOMI, PERRLA ENT exam: Moist oral mucosa Neck nontender, supple Respiratory exam: Coarse crepitation throughout bilaterally. Appears chronic Cardiovascular exam: Regular rate and rhythm Abdominal exam: Soft, nontender, nondistended, positive bowel sounds Extremities exam: No calf tenderness, +1 pedal edema bilaterally Skin -Grade 1 decubitus ulcer Neurological exam: Alert, awake, grossly CN II-XII intact, no focal deficits. No facial droop. Unable to walk due to severe generalized weakness - Patient Status Disposition: Home Health Service Condition: Undetermined Functional capacity at discharge: bed bound Overall status at discharge: patient is not back to baseline - Discharge Instructions Instructions: Heart Failure (DC), Pneumonia (DC) Follow Up With: Anderson Porras MD [Partnered Physician] - 10/26/17 2:00 pm Colt Boykin MD [Partnered Physician] - 11/09/17 2:20 pm Jamar Moya DO [Partnered Physician] - 11/02/17 9:30 am Avel Linares MD [Primary Care Provider] - (DR. LINARES IS ON VACATION UNTIL October.) - Diet and Activity Activity: as per physical therapy, wear oxygen at all times Diet: low fat, low cholesterol, low salt diet, other - VTE Documentation of Mechanical Device: Intermittent pneumatic compression device
[2017-10-19 15:59] VITALS: BP 118/55
== END 2017-10-19 18:11 | disposition home health service (06) | DRG 280 ==
LOC: EMEROO 09:08 → 3ANU 09:08 → SUATTDRO 13:59 → 3ANU 14:28 → 2NNU 10-09 14:59 → SUATTDRO 10-10 18:05
PROVIDERS: ADMIT Internal Medicine Cardiovascular Disease; ATTEND Internal Medicine